=== PATIENT | female | born 1950 | race Caucasian/White ===

== ENCOUNTER → 2016-04-01 12:21 | Outpatient (CLI) | payer MEDICARE, OTHER ==
[2014-12-31 08:49] VITALS: BMI 23.0
[~2016-04-01 12:21] MED LIST: ACETAMINOPHEN325 MG PO; ALIGN4 MG PO; COLACE100 MG PO; DULCOLAX10 MG/SUPP RC; HYDROCODON-ACE1 EAC7 PO; NEPHRO-VITE RX1 TAB PO; OCUVITE TABLET1 TA1 PO; PROTONIX40 MG PO; RENVELA800 MG PO; RESTORIL15 MG PO; ROCALTROL0.25 MCG PO; SLOW RELEASE I160 MG PO; SYNTHROID50 MCG PO; ULORIC80 MG PO; VIBRAMYCIN50 MG PO; ZESTRIL10 MG PO
== END | disposition home or self-care (01) ==
LOC: D.LABREF 12:21
DX: L02.818 Cutaneous abscess of other sites (principal)

== ENCOUNTER 2016-04-19 13:54 | Inpatient (IN) | payer MEDICARE, OTHER ==
[~2016-04-19] VITALS: Ht 165.1 cm; Wt 61.4 kg
[~2016-04-19 13:54] MED LIST changes: -HYDROCODON-ACE1 EAC7 PO; -SLOW RELEASE I160 MG PO; -ULORIC80 MG PO; -VIBRAMYCIN50 MG PO
[2016-04-19] MEDS ORDERED: SLOW RELEASE I160 MG PO (14:24)
[2016-04-19 14:25] VITALS: BP 171/100; BMI 22.9
[2016-04-19] MEDS ORDERED: ULORIC80 MG PO (14:25)
--- NOTE | 2016-04-19 14:40 | NUR ---
1410-RECEIVED VIA WHEELCHAIR TO ROOM WITH DX. CLOTTED AVF TO LEFT ARM. MADE NPO ORDERED. LEFT AVF WITH WEAK BRUIT, NO THRILL FELT, VERY RED AND TENDER. WILL ADMIT.
[2016-04-19 15:23] LABS: BASOPHILS 0.8 % (0.0-2.0); EOSINOPHILS 2.5 % (0-7); HEMATOCRIT 30.9 % (36.0-48.0); HEMOGLOBIN 9.7 g/dL (12-16); LYMPHOCYTES 21.3 % (15-50); MCH 29.4 pg (26.0-34.0); MCHC 31.4 g/dL (31.0-37.0); MCV 93.6 fL (80.0-100.0); MEAN PLATELET VOLUME 8.8 fL (7.4-10.4); NEUTROPHILS 64.4 % (40-80); PLATELET COUNT 181 10x3/uL (130-400); RDW 15.8 % (11.5-14.5); WBC 5.9 10x3/uL (4.8-10.8)
[2016-04-19 15:39] LABS: ANION GAP 16.2 mmol/L (8-16); CALCIUM 8.6 mg/dL (8.5-10.1); CARBON DIOXIDE 26.9 mmol/L (21.0-32.0); CREATININE - SERUM 4.4 mg/dL (0.6-1.3); POTASSIUM - SERUM 4.1 mmol/L (3.5-5.1)
[2016-04-19 15:43] LABS: INR 1.13 (0.85-1.17); PROTIME 14.4 SECONDS (11.6-15.0)
--- NOTE | 2016-04-19 19:20 | NUR ---
ASSESSMENT COMPELTE, A&O, IV TO RIGHT FOREARM SL, SITE CLEAN AND DRY. PT DENIES PAIN OR NEEDS AT THIS TIME, BED LOW, CL IN REACH.
[2016-04-19 20:00] VITALS: BP 178/99
--- NOTE | 2016-04-19 21:27 | NUR ---
HS MEDS GIVEN WITH FRESHI ICE WATER, SNACK ALSO PROVIDED.
[2016-04-20] VITALS: BP 123/83
--- NOTE | 2016-04-20 00:39 | NUR ---
AUTOMOTIVE SALES PROFESSIONAL AT BEDSIDE FOR VS, NEEDS ADDRESSED. CALL LIGHT IN REACH. WILL CONT TO MONITOR.
--- NOTE | 2016-04-20 03:25 | NUR ---
RESTING WITH EYES CLOSED, RESPERATIONS EVEN, NO S/S DISTRESS NOTED.
[2016-04-20 04:00] VITALS: BP 125/70
[2016-04-20 05:55] LABS: EOSINOPHILS 3.8 % (0-7); HEMATOCRIT 30.6 % (36.0-48.0); HEMOGLOBIN 9.6 g/dL (12-16); IMMATURE GRANULOCYTES 0.4 % (0-5); LYMPHOCYTES 13.2 % (15-50); MCH 29.4 pg (26.0-34.0); MCHC 31.4 g/dL (31.0-37.0); MCV 93.9 fL (80.0-100.0); MEAN PLATELET VOLUME 9.3 fL (7.4-10.4); MONOCYTES 16.1 % (2-11); NEUTROPHILS 65.5 % (40-80); PLATELET COUNT 198 10x3/uL (130-400); RBC 3.26 10x6/uL (4.00-5.40); RDW 15.8 % (11.5-14.5); WBC 5.2 10x3/uL (4.8-10.8)
[2016-04-20 06:33] LABS: INR 1.13 (0.85-1.17); PROTIME 14.4 SECONDS (11.6-15.0)
[2016-04-20 06:47] LABS: ANION GAP 15.3 mmol/L (8-16); CALCIUM 8.4 mg/dL (8.5-10.1); CARBON DIOXIDE 24.5 mmol/L (21.0-32.0); CREATININE - SERUM 4.8 mg/dL (0.6-1.3); PHOSPHOROUS 4.3 mg/dL (2.5-4.9); POTASSIUM - SERUM 3.8 mmol/L (3.5-5.1)
--- NOTE | 2016-04-20 08:01 | NUR ---
0715-EKG PERFORMMED ORDERED. OP PERMITS SIGNED AND WITNESSED. NPO. RES. LEFT ARM WITH AVF, RIGHT FA SEEN WITH NS INFUSING AT 10 CC/HR. ON ROOM AIR. WILL CONTINUE TO MONITOR.
--- NOTE | 2016-04-20 08:09 | NUR ---
CALLED AND TALKED TO GALO IN SURGERY AND IT SHOWS FOR SURGERY AT 0900 THIS AM. THIS IS RELAYED TO THE PATIENT.
[2016-04-20 08:27] VITALS: BP 121/75
--- NOTE | 2016-04-20 08:45 | NUR ---
TO OR VIA BED.
--- NOTE | 2016-04-20 13:37 | NUR ---
RETURNS FROM RECOVERY ROOM WITH LEFT ARM IN SLING. DRESSING TO LEFT ARM IS DRY AND INTACT. LEFT GROIN HEMISPLIT SEEN WITH DRY INTACT DRESSING, DATED FOR TODAY. WILL MONITOR.
[2016-04-20 13:39] VITALS: BP 157/91
[2016-04-20 14:15] VITALS: Ht 165.1 cm; Wt 61.4 kg
[2016-04-20 16:38] VITALS: BP 154/91
--- NOTE | 2016-04-20 18:23 | NUR ---
DOING WELL POST SURGERY AND DIALYSIS. LEFT ARM STILL IN SLING, DENIES NEEDS AT PRESENT TIME.
--- NOTE | 2016-04-20 19:37 | NUR ---
ASSESSMENT COMPELTE, A&O, RESPERATIONS EVEN ON ROOM AIR. IV TO RIGHT FOREARM WITH HEPARIN DRIP INFUSING AT 10 CC/HR, SITE CLEAN AND DRY. LEFT ARM IN SLING AFTER LEFT AVF REVISION DONE EARLIER TODAY. LEFT GROIN HEMOSPLIT NOTED WITH DRSG C/D/I. PT DENIES NEEDS AT THIS TIME, BED LOW, CL IN REACH.
[2016-04-20 21:06] VITALS: BP 113/59
--- NOTE | 2016-04-20 21:07 | NUR ---
HS MEDS GIVEN WITH FRESH ICE WATER, NORCO 1 TAB GIVEN FOR C/O PAIN TO LEFT ARM INCISION. NO OTHER NEEDS AT THIS TIME, BED LOW, CL IN REACH.
--- NOTE | 2016-04-20 23:30 | NUR ---
DRIVER COURIER AT BEDSIDE FOR VS. NEEDS ADDRESSED AT THIS TIME. CALL LIGHT IN REACH. REX CONT TO MONITOR.
[2016-04-21 01:50] VITALS: BP 104/61
[2016-04-21 05:40] VITALS: BP 100/58
[2016-04-21 05:56] LABS: BASOPHILS 0.8 % (0.0-2.0); EOSINOPHILS 2.7 % (0-7); HEMATOCRIT 32.6 % (36.0-48.0); HEMOGLOBIN 10.3 g/dL (12-16); IMMATURE GRANULOCYTES 0.2 % (0-5); LYMPHOCYTES 13.1 % (15-50); MCH 29.8 pg (26.0-34.0); MCHC 31.6 g/dL (31.0-37.0); MCV 94.2 fL (80.0-100.0); MEAN PLATELET VOLUME 8.8 fL (7.4-10.4); NEUTROPHILS 69.2 % (40-80); PLATELET COUNT 163 10x3/uL (130-400); RBC 3.46 10x6/uL (4.00-5.40); WBC 6.3 10x3/uL (4.8-10.8)
[2016-04-21 06:36] LABS: ANION GAP 14.1 mmol/L (8-16); CALCIUM 8.3 mg/dL (8.5-10.1); CARBON DIOXIDE 27.7 mmol/L (21.0-32.0); CREATININE - SERUM 4.1 mg/dL (0.6-1.3); PHOSPHOROUS 5.3 mg/dL (2.5-4.9); POTASSIUM - SERUM 3.8 mmol/L (3.5-5.1); VANCOMYCIN - RANDOM 15.5 ug/mL (10.0-20.0)
[2016-04-21 08:03] VITALS: BP 94/53
--- NOTE | 2016-04-21 08:07 | NUR ---
ASSESSEMENT DONE. PT A/O. NURSE ASSISTED PT BACK TO BED FROM BSC. PT DENIES NEEDS AT THIS TIME. NO DISTRESS NOTED. CALL LIGHT WITH IN REACH. WILL CONT. TO MONITOR.
--- NOTE | 2016-04-21 09:34 | NUR ---
IV PATENT. CALL LIGHT IN REACH. WILL CONT. PLAN OF CARE.
--- NOTE | 2016-04-21 10:06 | NUR ---
PT TO DIALYSIS VIA WC
[2016-04-21 10:23] LABS: INR 1.3 (0.85-1.17)
--- NOTE | 2016-04-21 14:08 | NUR ---
PT BACK FROM DIALYSIS. C/O PAIN TO LEFT GROIN AT [facility] SITE. NORCO GIVEN. CALLED DR. WIGGINS IN SURGERY PER HIS REQUSEST AND NOTIFED SURGERY NURSE PT WAS BACK IN ROOM. DR. WIGGINS IS IN OR ON A CASE.
[2016-04-21 16:00] VITALS: BP 107/64
--- NOTE | 2016-04-21 16:27 | NUR ---
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 Yes 0 * How many steps to enter\exit or inside your home? RAMP 0 * PCP DR. LION 0 * Pharmacy [facility] [address] OR [facility], MAIL ORDER 0 * Preadmission Environment Home with Family 0 * ADLs Independent 0 * Equipment Cane Other Walker 0 * Other Equipment INDEPENDENCE - MEDICAL EQUIPMENT PROVIDER NEXT STAGE - HOME HEMODIALYSIS SUPPLIES 0 * List name and contact numbers for known caregivers / representatives who currently or will assist patient after discharge: KAYLIN CAMPBELL, FRIEND, 0 * Community resources currently utilized Other 0 * Please name any agencies selected above. HOME HEMODIALYSIS, 3 DAYS PER WEEK * Additional services required to return to the preadmission environment? No 0 * Can the patient safely return to the preadmission environment? Yes 0 * Has this patient been hospitalized within the prior 30 days at any hospital? No 0 CM MET WITH PT IN ROOM TO DISCUSS DISCHARGE PLANNING AND NEEDS. PT REPORTS LIVING AT HOME INDEPENDENTLY WITH HER FRIEND WHO SHE CONSIDERS HER SISTER. PT HAS CANE, WALKER AND HOME DIALYSIS EQUIPMENT AND PT DOES HER OWN HEMODIALYSIS THREE DAYS PER WEEK AT HOME. PT HAS NO OUTSIDE SERVICES ASSISTING IN THE HOME. CM DISCUSSED AVAILABILITY OF HOME HEALTH, REHAB SERVICES AND MEDICAL EQUIPMENT. PT REPORTS UNKNOWN DISCHARGE NEEDS, REPORTS PLAN TO RETURN HOME, PT WILL CALL A FRIEND WHO WILL PICK HER UP FOR DISCHARGE HOME. PT REPORTS PLAN TO DISCHARGE HOME WITH FAMILY, HAS UNKNOWN DISCHARGE NEEDS AT THIS TIME. CM TO FOLLOW AND ASSIST NEEDED. Sustain Engineer: Shreyas Felton
--- NOTE | 2016-04-21 16:58 | NUR ---
DR. WIGGINS STILL BEEN BY TO SEE PT. CALLED EXT. [phone] WIGGINS IN WITH A PT. SHE WILL LET HIM KNOW PT IS IN ROOM AND READY TO SEE HIM.
--- NOTE | 2016-04-21 21:11 | NUR ---
HS MEDS GIVEN WITH FRESH ICE WATER. NORCO 1 TAB GIVEN FOR C/O PAIN TO LEFT ARM. NO OTHER NEEDS AT THIS TIME, BED LOW, CL IN REACH.
[2016-04-21 22:07] VITALS: BP 108/59
--- NOTE | 2016-04-21 22:55 | NUR ---
CONSENTS SIGNED FOR LEFT HERO GRAFT AND POSSIBLE INERTION OF HEMOSPLIT CATHETER TO BE DONE ON 04/21/16. HEPARIN DRIP DC'D. SNACK PROVIDED AT PT REQUEST, NO OTHER NEEDS AT THIS TIME.
[2016-04-22 01:57] VITALS: BP 100/55
[2016-04-22 05:26] VITALS: BP 97/56
--- NOTE | 2016-04-22 06:27 | NUR ---
NO CHANGES FROM PREVIOUS ASSESSMENT, CALL LIGHT IN REACH. WILL CONTINUE TO WITH PLAN OF CARE.
--- NOTE | 2016-04-22 06:58 | NUR ---
PREOP MEDS GIVEN WITH SMALL SIP OF ORDERED.
--- NOTE | 2016-04-22 07:30 | NUR ---
RECEIVED PT REPORT. NO OTHER NEEDS AT THIS TIME. WILL CONTINUE PLAN OF CARE.
[2016-04-22 08:37] LABS: BASOPHILS 0.5 % (0.0-2.0); EOSINOPHILS 4.4 % (0-7); HEMATOCRIT 31.7 % (36.0-48.0); IMMATURE GRANULOCYTES 0.2 % (0-5); LYMPHOCYTES 11.5 % (15-50); MCH 29.9 pg (26.0-34.0); MCHC 31.5 g/dL (31.0-37.0); MCV 94.9 fL (80.0-100.0); MEAN PLATELET VOLUME 8.7 fL (7.4-10.4); MONOCYTES 16.7 % (2-11); NEUTROPHILS 66.7 % (40-80); RBC 3.34 10x6/uL (4.00-5.40); RDW 15.8 % (11.5-14.5); WBC 5.9 10x3/uL (4.8-10.8)
[2016-04-22 08:44] LABS: PLATELET COUNT 126 10x3/uL (130-400)
[2016-04-22 08:47] LABS: APTT 40.5 SECONDS (22.8-39.4); INR 1.1 (0.85-1.17); PROTIME 14.1 SECONDS (11.6-15.0)
[2016-04-22 08:50] LABS: ANION GAP 13.6 mmol/L (8-16); CALCIUM 8.8 mg/dL (8.5-10.1); CARBON DIOXIDE 27.9 mmol/L (21.0-32.0); CREATININE - SERUM 3.5 mg/dL (0.6-1.3); PHOSPHOROUS 4.8 mg/dL (2.5-4.9); POTASSIUM - SERUM 3.5 mmol/L (3.5-5.1)
[2016-04-22 11:20] VITALS: BP 114/56
[2016-04-22 11:34] VITALS: BP 103/52
--- NOTE | 2016-04-22 11:53 | NUR ---
PT IS ALERT. ASSESSMENT DONE PER FLOWSHEET. NO OTHER NEEDS AT THIS TIME. WILL CONTINUE TO MONITOR.
--- NOTE | 2016-04-22 15:36 | NUR ---
PT IS ALERT. NO SS OF DISTRES AT THIS TIME. WILL CONTINUE TO MONITOR.
[2016-04-22 16:17] VITALS: BP 113/65
--- NOTE | 2016-04-22 19:15 | NUR ---
RESUME CARE OF PT, RESERVED L.ARM, IV-RFA-SL, BED IS LOW, SRX2, PT DENIES ANY NEEDS, CALL LIGHT IN REACH, WILL CONTINUE TO MONITOR
[2016-04-22 20:00] VITALS: BP 100/59
[2016-04-23] VITALS: BP 129/69
--- NOTE | 2016-04-23 03:30 | NUR ---
ASSESSMENT COMPLETE, PT SLEEPING, CALL LIGHT IN REACH, BED IS LOW, SRX2, WILL CONTINUE TO MONITOR
--- NOTE | 2016-04-23 03:36 | NUR ---
CAPSULE FILLER AT BEDSIDE TO OBTAIN VITALS, CALL LIGHT IN REACH. WILL CONTINUE WITH PLAN OF CARE.
[2016-04-23 04:00] VITALS: BP 107/52
[2016-04-23 06:02] LABS: BASOPHILS 0.6 % (0.0-2.0); EOSINOPHILS 5.9 % (0-7); HEMATOCRIT 30.6 % (36.0-48.0); HEMOGLOBIN 9.4 g/dL (12-16); IMMATURE GRANULOCYTES 0.2 % (0-5); LYMPHOCYTES 14.2 % (15-50); MCH 28.9 pg (26.0-34.0); MCHC 30.7 g/dL (31.0-37.0); MCV 94.2 fL (80.0-100.0); MEAN PLATELET VOLUME 8.7 fL (7.4-10.4); MONOCYTES 12.5 % (2-11); NEUTROPHILS 66.6 % (40-80); PLATELET COUNT 123 10x3/uL (130-400); RBC 3.25 10x6/uL (4.00-5.40); RDW 15.5 % (11.5-14.5); WBC 5.4 10x3/uL (4.8-10.8)
[2016-04-23 06:59] LABS: ANION GAP 15.5 mmol/L (8-16); CALCIUM 8.4 mg/dL (8.5-10.1); CARBON DIOXIDE 26.4 mmol/L (21.0-32.0); PHOSPHOROUS 5.8 mg/dL (2.5-4.9); POTASSIUM - SERUM 3.9 mmol/L (3.5-5.1)
[2016-04-23 07:05] LABS: CREATININE - SERUM 4.8 mg/dL (0.6-1.3)
[2016-04-23 09:52] VITALS: BP 103/70
--- NOTE | 2016-04-23 10:57 | NUR ---
PATIENT PATHWAYS: [facility]. Med records uploaded and forwarded to the unit. No answer in patient's room. Pt to have HD today then likely discharge per progress notes. BMM Dialysis Coordinator.
[2016-04-23 16:38] VITALS: BP 116/65
--- NOTE | 2016-04-23 20:00 | NUR ---
RESTING IN BED. ALERT/ORIENTED. RESERVE LEFT ARM. HAD SURGERY DONE ON LEFT UPPPER ARM HERO TODAY. HAS SALINE LOCK TO RFA AND LEFT GROIN TRIALYSIS SALINE LOCKED. RECIEVED HEMODIALYSIS TODAY VIA GROIN TRIALYSIS. ENCOURAGED TO KEEP LEFT ARM ELEVATED ON PILLOW TONIGHT. PT ASKED FOR IV PAIN MED AT BEDTIME SO THAT SHE WILL BE COMFORTABLE TO SLEEP. CALL LIGHT IN REACH. CPOC.
[2016-04-23 21:44] VITALS: BP 156/91
--- NOTE | 2016-04-23 22:00 | NUR ---
HS MEDS GIVEN, REQUESTED PAIN MED OF IV BUPRENEX GIVEN FOR PAIN IN LEFT ARM AND RESTORIL GIVEN TO PROMOTE SLEEP. LEFT ARM ELEVATED ON PILLOW. CPOC.
[2016-04-24 00:35] VITALS: BP 123/63
[2016-04-24 04:36] VITALS: BP 153/65
--- NOTE | 2016-04-24 04:47 | NUR ---
RESTING IN BED WITH NONLABORED RESPIRATIONS. NO DISTRESS. CPOC.
--- NOTE | 2016-04-24 07:40 | NUR ---
AM ROUNDING- PT LAYING IN BED ON RIGHT SIDE WITH EYES CLOSED RESTING. AVF/HERO SEEN TO LEFT ARM (RESERVE LEFT ARM) WITH CLEAN, DRY, AND INTACT DRESSING. PT DIALYSES ON M, W, F. TRIALYSIS CATHETER SEEN TO LEFT GROIN AREA WITH CLEAN, DRY, AND INTACT DRESSING SEEN. ON ROOM AIR. NO MONITOR. IV SEEN TO RIGHT FOREARM THAT IS CURRENTLY SALINE LOCKED. PTS LEFT ARM IS RESTING ON PILLOW, PER REPORT PT HAD PROCEDURE ON AVF/HERO A FEW DAYS AGO SO PTS ARM IS STILL VERY SORE. NO NEED AT CURRENT TIME. WILL CONTINUE TO MONITOR AND CONTINUE WITH PLAN OF CARE.
[2016-04-24 07:53] LABS: BASOPHILS 0.4 % (0.0-2.0); EOSINOPHILS 3.8 % (0-7); HEMATOCRIT 30.4 % (36.0-48.0); HEMOGLOBIN 9.4 g/dL (12-16); IMMATURE GRANULOCYTES 0.1 % (0-5); LYMPHOCYTES 10.2 % (15-50); MCHC 30.9 g/dL (31.0-37.0); MCV 93.8 fL (80.0-100.0); MEAN PLATELET VOLUME 8.5 fL (7.4-10.4); MONOCYTES 19.4 % (2-11); NEUTROPHILS 66.1 % (40-80); PLATELET COUNT 109 10x3/uL (130-400); RBC 3.24 10x6/uL (4.00-5.40); RDW 15.4 % (11.5-14.5)
[2016-04-24 07:56] LABS: WBC 6.9 10x3/uL (4.8-10.8)
[2016-04-24 08:00] VITALS: BP 119/66
[2016-04-24 08:19] LABS: ANION GAP 14.3 mmol/L (8-16); CALCIUM 8.9 mg/dL (8.5-10.1); CARBON DIOXIDE 29.7 mmol/L (21.0-32.0); CREATININE - SERUM 4.1 mg/dL (0.6-1.3); PHOSPHOROUS 5.6 mg/dL (2.5-4.9)
[2016-04-24 12:00] VITALS: BP 90/51
[2016-04-24 16:00] VITALS: BP 101/55
--- NOTE | 2016-04-24 16:55 | NUR ---
PT LAYING IN BED ON BACK WITH EYES OPEN RESTING WATCHING TV. DENIES ANY NEED AT CURRENT TIME. LEFT ARM IS ELEVATED ON PILLOW FOR COMFORT. WILL CONTINUE TO MONITOR.
[2016-04-24 20:30] VITALS: BP 138/69
--- NOTE | 2016-04-24 23:48 | NUR ---
INITIAL ROUNDS COMPLETED AT 1920 HRS. PT DENIED ANY DISCOMFORT. ASSESSMETN COMPLETED AT 2020 HRS. VSS. IV TO RFA SL. L GROIN TRIALYSIS CATH NOTED WITH NURSE PORT. L GROIN CLEAN, DRY AND INTACT WITHOUT ANY SWELLING OR BLEEDING. PALPABLE PEDAL PULSES. BILAT FEET WARM TO TOUCH. L ARM HERO GRAT WITH BRUIT AND THRILL. L ARM SWOLLEN AND ELEVATED ON PILLOWS. STRONG RADIAL PULSE. DRESSING CLEAN, DRY AND INTACT. LUNGS CTA. PM MEDS GIVEN INCLUDING RESTORIL AND NORCO. PT CURRENTLY RESTING WITH EYES CLOSED. RESP EVEN AND REGULAR. SR UP X2, CALL LIGHT WITHIN REACH.
[2016-04-25 00:30] VITALS: BP 104/50
--- NOTE | 2016-04-25 03:06 | NUR ---
PT RESTING WITH EYES CLOSED. RESP EVEN AND REGULAR. SR UP X2,CALL LIGHT WITHIN REACH.
[2016-04-25 04:30] VITALS: BP 101/55
--- NOTE | 2016-04-25 05:20 | NUR ---
VSS THROUGHOUT NGIHT. PT STATED NORCO CONTROLLED PAIN. NEEDS MET; WILL CONTINUE TO MONITOR.
--- NOTE | 2016-04-25 07:17 | NUR ---
AM ROUNDING- PT LAYING IN BED ON BACK WITH EYES OPEN RESTING. ON ROOM AIR. NO MONITOR. IV SEEN TO RIGHT FOREARM THAT IS CURRENTLY SALINE LOCKED. TRIALYSIS CATHETER SEEN TO LEFT GROIN AREA (PT USES AT TIMES FOR DIALYSIS). RESERVE LEFT ARM FOR HERO GRAFT. CLEAN, DRY, AND INTACT DRESSING SEEN OVER HERO GRAFT. PER REPORT PT DIALYZES ON M, W, AND F. RED SPOTS SEEN ON FACE, PT STATES SHE HAS HX OF SCLERODERMA. NO NEED AT CURRENT TIME. WILL CONTINUE TO MONITOR AND CONTINUE WITH PLAN OF CARE.
[2016-04-25 08:00] VITALS: BP 105/56
[2016-04-25] MEDS ORDERED: HYDROCODON-ACE1 EAC7 PO (09:46)
--- NOTE | 2016-04-25 11:31 | NUR ---
D/C INSTRUCTIONS EXPLAINED TO PT AND SIGNED, PLACED IN CHART. IV TO RIGHT FOREARM REMOVED WITH CATH TIP INTACT. COVERED SITE WITH 2X2 GAUZE AND SECURED WITH TAPE. TOLERATED WELL. PT HAS TRIALYSIS CATHETER TO LEFT GROIN IN PLACE. PT STATES [facility] STATED THEY WOULD TAKE IT OUT BEFORE SHE LEFT TODAY. PAGED TREU RICHMOND TO SEE WHAT SHE WANTED TO ABOUT TRIALYSIS CATHETER. AWAITING CALLBACK.
--- NOTE | 2016-04-25 11:43 | NUR ---
[facility] ON UNIT. E[facility]NE[facility] STATES TO GO AHEAD AND REMOVE PTS TRIALYSIS CATHETER AND LEAVE PTS STITCH TO LEFT HERO GRAFT IN AND THEY WILL ADDRESS IT IN FOLLOW UP APPT. WILL DO ORDERED AND CONTINUE TO MONITOR.
--- NOTE | 2016-04-25 14:13 | NUR ---
CHECKED ON PTS AREA WHERE HEMOSPLIT WAS REMOVED. OPSITE IS CLEAN, DRY, AND INTACT. NO BLEEDING SEEN. PT LAYING FLAT INSTRUCTED. WILL CONTINUE TO MONITOR.
--- NOTE | 2016-04-25 14:16 | NUR ---
CHAPO BASS WENT TO ASSESS PTS OPSITE WHICH IS CLEAN, DRY, AND INTACT WITH NO BLEEDING SEEN. CHAPO BASS RAISED HOB TO 30 DEGREES. WILL CONTINUE TO MONITOR.
--- NOTE | 2016-04-25 15:10 | NUR ---
PT D/C VIA WHEELCHAIR. OPSITE WHERE HEMOSPLIT WAS REMOVED IS CLEAN, DRY, AND INTACT. NO BLEEDING SEEN. PTS BELONGINS WERE TAKEN DOWN BY PTS SISTER.
--- NOTE | 2016-04-27 09:57 | OP ---
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 OPERATION PERFORMED: Left upper extremity AV fistulogram, AngioJet mechanical thrombolysis, balloon angioplasty of peripheral venous access stenosis and also a superior vena cavogram with balloon angioplasty of proximal subclavian venous stenosis near occlusion and then also lastly, ultrasound as well as fluoroscopically guided insertion of a left common femoral Trialysis acute central venous dialysis catheter. SURGEON: Nahed Wiggins MD. ANESTHESIA: Regional block and IV sedation and local. REFERRING PHYSICIAN: Froy Lion, Dr. Kelley and Dr. Lake. PREOPERATIVE NOTE: Nolan Paez is a 66-year-old white female, patient of the renal disease and scleroderma, who has been dialyzing now for some time with a left brachiocephalic AV fistula. This fistula has aneurysmal change beginning at the arterial anastomosis and has been revised once with an open operation to replace a segment with a PTFE graft. She has recently had angiography at [facility], which has demonstrated a central vein stenosis, which was treated by balloon angioplasty and a stenosis in the cephalic vein in the upper third of the humerus level. She presented yesterday with thrombosis and considerable tenderness and inflammatory changes surrounding the AV fistula/graft and was admitted to the hospital and begun on antibiotics and I was consulted. She is brought to the operating room at this time with plans to do a fistulogram and hopefully salvage the access, but also were prepared to insert a dialysis catheter. Under regional block anesthesia as well as IV sedation and in supine position, the patient was prepped and draped in a sterile manner. The groins were prepped as well as the neck and upper chest, so that we could implant dialysis catheters as any of those locations without having to stop the procedure to completely reprepped and draped. I performed an ultrasound examination of the fistula and noted the arterial anastomotic pseudoaneurysm as well as the other aneurysmal change in the fistula in the lower half of the arm. There was a large amount of thrombus and no evidence of flow in the fistula itself. I accessed the fistula near the arterial anastomosis with mini stick technique, which led up to an eventual insertion of a 7-Jordanian introducer, I advanced the guidewire and an AngioJet catheter through the thrombosed fistula, noted that there was a stenosis at about the junction of the middle and lower thirds of the arm, was able to advance the guidewire into the right atrium and the AngioJet well up OPERATIVE REPORT [id number] NOLAN PAEZ into the inferior vena cava. I then performed a mechanical thrombolysis, after which contrast injection demonstrated a severe, almost total occlusion of the left subclavian vein and proximal brachiocephalic vein just at the junction with the internal jugular. There was extensive thrombus in the cephalic vein from the deltopectoral groove down to the arterial anastomosis and there was a stenosis, which I believe is a recurrent stenosis in the upper third of the arm, in the cephalic vein and another within the AV fistula at a bowel level. 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 The patient was systemically heparinized and additional AngioJet mechanical thrombolysis performed, after which, an 8 mm diameter balloon was used to dilate the stricture is within the venous segments of the fistula in the arm and a 14 x 40 mm angioplasty balloon was used to dilate the left brachiocephalic and left subclavian veins. The final result was pentecostalism of flow in the fistula and removal of the majority of the clot burden from within it. I did not attempt to reverse the patient's heparin, but removed the 7-Jordanian introducer and held pressure and placed a [id number] 4-0 Prolene suture and subsequently this site was dressed with Avitene Ultrafoam, Tegaderm, and Cavilon skin prep and a continuous gentle direct pressure, maintained until hemostasis was assured. I examined the arm with ultrasound and still see some thrombus remaining in the vein, although there does seem to be good flow. I still did not trust newly resurrected fistula to function through dialysis today and so I opted to go ahead and placed a temporary dialysis catheter, this time in the left common femoral vein, this was done with ultrasound guidance and mini stick technique and eventually a 24 cm long Trialysis catheter was inserted and its tip positioned to the inferior vena cava. All 3 lumens were accessed and aspirated, free return of blood confirmed. They were then flushed with saline and then heparin locked with 100 units per cc heparin. It was sutured in place with 2-0 silk. Sterile dressing applied along with an antibacterial barrier. The patient was at that point been awakened and taken to the recovery room. Blood loss during the operation was really insignificant and unreplaced and all sponges, instruments, and needles were accounted for. No drain was used and no surgical specimen was submitted for histopathology. PLAN: I will to keep the patient on continuous heparin anticoagulation for the rest of today this evening and reconsider tomorrow whether to continue her on anticoagulation regime even at home on an outpatient basis. In the slightly longer term, I believe that she should be converted to a HeRO graft. I do not think placement of the stent in the subclavian stenosis will necessarily keep things open ____ this can result in a partial jailing of the anterior jugular vein and prevent subsequent conversion to a HeRO. TRANSINT:[id number] Voice Confirmation ID: [id number] DOCUMENT ID: [id number] NAHED WIGGINS MD at 0957 CC: FROY LION MD [id number] DICTATION DATE: 04/20/16 1234 MOTOR INSPECTION MECHANIC: 04/20/16 1541 DIS IN 04/25/[address] [facility] [address] [place] [address]
--- NOTE | 2016-04-27 09:57 | OP ---
PATIENT NAME: NOLAN PAEZ MEDICAL RECORD: [id number] :52 LOCATION:D. D.2132 ADMISSION DATE:04/19/16 SURGEON: NAHED WIGGINS MD DATE OF OPERATION: 04/22/2016 PATIENT TYPE: Inpatient. REFERRED BY: Froy Lion MD PREOPERATIVE DIAGNOSES: End-stage renal disease and depends upon hemodialysis, with other mechanical complication of left upper extremity arteriovenous graft and central vein stenosis with stenosis of the left subclavian and left brachiocephalic vein and left internal jugular vein. OPERATION PERFORMED: Ultrasound-guided access of the left internal jugular vein followed by performance of a superior vena cavogram and balloon angioplasty of the brachiocephalic and internal jugular veins, then insertion of a HeRO outflow device, positioning the tip of that catheter in the right atrium with additional contrast studies to confirm proper positioning. The PTFE graft portion of the HeRO sewn end-to-end to the cephalic vein in the upper third of the arm in order to preserve established left arm hemodialysis access. SURGEON: Nahed Wiggins MD ANESTHESIA: General endotracheal per GARMENT LOOPER. PREOPERATIVE NOTE: Dr. Lion's patient, Nolan Paez is a very pleasant 66-year-old white female patient with scleroderma and end-stage renal disease, has been dialyzing for some time now with a left upper extremity brachiocephalic AV fistula, which has been converted at least partially segmentally to an AV graft. She has had problems with central vein stenosis and stenosis in the cephalic vein in the upper third of the arm, which recently led to thrombosis of the fistula. Earlier this week, she was taken to the operating room and underwent a successful fistulogram with mechanical AngioJet thrombolysis and balloon angioplasty of the stenosis in the dialysis circuit and the cephalic vein and also central vein stenosis balloon angioplasty. At that time, we planned that the patient would be returned to the operating room in the near future for conversion to a HeRO graft. The patient as well as Dr. Lion would prefer that we go ahead and do that now during this hospitalization. Her fistula/AV graft has remained patent although she was on continuous IV heparin until last evening. Heparin was discontinued about midnight. She has a left femoral Trialysis dialysis catheter, which I placed earlier this week, and which was used for her dialysis yesterday. That catheter can probably be removed tomorrow if she dialyzes successfully with her left arm AV fistula graft and she may be able to be discharged as well tomorrow. DESCRIPTION OF PROCEDURE: Under general endotracheal anesthesia in supine position, the patient was prepped and draped in sterile manner. Using ultrasound guidance, I accessed the left internal jugular vein ____ and was able to insert a micropuncture needle and wire and then that led up to placement of a 7-Irish Introducer. Contrast injection confirmed the presence of a stenosis of the proximal internal jugular and brachiocephalic veins A guidewire was then advanced on through the right heart and then to the inferior vena cava. A guidewire exchange was made and Amplatz stiff wire was in place over which I used a 7-mm angioplasty balloon to dilate the venous stenoses and repeated OPERATIVE REPORT [id number] NOLAN PAEZ contrast injection revealed satisfactory dilatation without complication and a patent superior vena cava and right atrium without any areas of other stenosis. I was then able to insert a serial rigid dilators and lastly, the HeRO outflow device through a peel-away sheath. The tip of the HeRO outflow catheter was positioned in the right atrium under fluoroscopy. Contrast injection confirmed that it was indeed in the right atrium as it appeared to be. It was flushed with heparinized saline and clamped. An incision was made beneath the clavicle in the deltopectoral groove, dilated subcutaneous venous tributaries were divided between clamps and ligated with 3-0 Vicryl and the incision carried down to the investing pectoral fascia. The HeRO outflow device catheter was then pulled through a subcutaneous tunnel into that deltopectoral groove incision and repeat fluoroscopy revealed appropriate position of the tip of the catheter to be maintained. I then took the HeRO PTFE graft segment and shortened it. I made a longitudinal incision over the cephalic vein in the upper third of the arm at a point I believed to be above that of the previously noted and recently dilated stenosis. The vein was exposed and controlled with Silastic loops. The patient was heparinized with 2000 units of heparin. The PTFE graft was pulled through the subcutaneous tunnel from the deltopectoral groove to the upper arm incision. The cephalic vein was clamped distally and a vascular stapling device was then used to occlude the vein proximally. The vein was then transected and trimmed back, there was thrombus within it which was removed and I then performed an end-to-end anastomosis and an Inkwell technique in implanting the 6 mm diameter graft into the cephalic vein with a running 6-0 Prolene and this was then further sealed and reinforced with BioGlue. When adequate time had elapsed for the glue to set, the clamp was opened and forward bleeding allowed to wash away any clots and air bubbles. The PTFE was then clamped. The HeRO outflow device was shortened and then connected to the titanium nipple on the PTFE graft. At that point, all of the occluding clamps were released and flow was established through the new HeRO. Doppler confirmed good flow in the fistula or cephalic vein portion of this complex. The patient's heparin was not reversed. The wounds were irrigated with Ancef and gentamicin solution. They were then infiltrated with 0.25% Marcaine with epinephrine and closed with interrupted inverted 3-0 Vicryl and running intracuticular 4-0 Monocryl and Dermabond glue. They were dressed with Maxorb Ag, Tegaderm and Cavilon skin prep. The patient was awakened and extubated and taken to the recovery room in stable condition. Blood loss during the operation was rather small, certainly less than 100 cc, none was replaced intraoperatively. All sponges, instruments and needles were accounted for. No drain was used and no surgical specimen was submitted for histopathology. TRANSINT:[id number] Voice Confirmation ID: [id number] DOCUMENT ID: [id number] NAHED WIGGINS MD at 0957 CC: FROY LION MD [id number] DICTATION DATE: 04/22/16 1050 FLUID DYNAMICIST: 04/22/16 1306 DIS IN 04/25/16 [facility] [address] [id number]
== END 2016-04-25 15:12 | disposition home or self-care (01) | DRG 252 ==
LOC: D.M2 13:54
PROVIDERS: Internal Medicine; Internal Medicine Nephrology; Surgery; ADMIT Internal Medicine Nephrology
PROC: 03783ZZ Dilation of Left Brachial Artery, Percutaneous Approach (ICD-10-PCS; principal; 2016-04-20 09:00)
PROC: B51C1ZA Fluoroscopy of Left Lower Extremity Veins using Low Osmolar Contrast, Guidance (ICD-10-PCS; principal; 2016-04-20 09:00)
PROC: 05CA3ZZ Extirpation of Matter from Left Brachial Vein, Percutaneous Approach (ICD-10-PCS; principal; 2016-04-20 09:00)
PROC: 06HN33Z Insertion of Infusion Device into Left Femoral Vein, Percutaneous Approach (ICD-10-PCS; principal; 2016-04-20 09:00)
PROC: B51W1ZZ Fluoroscopy of Dialysis Shunt/Fistula using Low Osmolar Contrast (ICD-10-PCS; principal; 2016-04-20 09:00)
PROC: B54CZZA Ultrasonography of Left Lower Extremity Veins, Guidance (ICD-10-PCS; principal; 2016-04-20 09:00)
PROC: 05763ZZ Dilation of Left Subclavian Vein, Percutaneous Approach (ICD-10-PCS; principal; 2016-04-20 09:00)
PROC: 057A3ZZ Dilation of Left Brachial Vein, Percutaneous Approach (ICD-10-PCS; 2016-04-22)
PROC: 05U Upper Veins, Supplement (ICD-10-PCS; 2016-04-22)
PROC: B5181ZZ Fluoroscopy of Superior Vena Cava using Low Osmolar Contrast (ICD-10-PCS; 2016-04-22)
DX: T82.868A Thrombosis due to vascular prosthetic devices, implants and grafts, initial encounter (principal); N18.6 End stage renal disease; I12.0 Hypertensive chronic kidney disease with stage 5 chronic kidney disease or end stage renal disease; Y83.8 Other surgical procedures as the cause of abnormal reaction of the patient, or of later complication, without mention of misadventure at the time of the procedure; Z99.2 Dependence on renal dialysis; E03.9 Hypothyroidism, unspecified; I48.91 Unspecified atrial fibrillation; D63.1 Anemia in chronic kidney disease; M34.9 Systemic sclerosis, unspecified

== ENCOUNTER 2016-05-13 10:02 | Inpatient (IN) | payer MEDICARE, OTHER ==
[~2016-05-13] VITALS: Ht 165.1 cm; Wt 64.1 kg
--- NOTE | ~2016-05-13 | OP ---
PATIENT NAME: NOLAN PAEZ MEDICAL RECORD: [id number] :51 LOCATION:D.M2 D.2104 ADMISSION DATE:05/13/16 SURGEON: NAHED WIGGINS MD DATE OF OPERATION: 05/25/2016 REFERRED BY: Froy Lion MD. PREOPERATIVE DIAGNOSIS: Mechanical dysfunction of the right femoral HemoSplit tunneled dialysis catheter. POSTOPERATIVE DIAGNOSIS: Mechanical dysfunction of the right femoral HemoSplit tunneled dialysis catheter. OPERATION PERFORMED: Injection of contrast and manipulation and positional change of existing femoral tunnel dialysis catheter. SURGEON: Nahed Wiggins MD. ANESTHESIA: MAC per BATTERY CHARGER CONVEYOR LINE. PREOPERATIVE NOTE: Ms. Paez is a daniel 66-year-old white female patient with end-stage renal disease, on chronic hemodialysis. I recently had to excise an infected AV fistula in her left arm. She now has a HeRO graft on the left with a healing Acuseal PTFE graft, which has not yet been utilized. She continues to receive antibiotic therapy and is now dependent at least for short term for hemodialysis access on a right common femoral HemoSplit dialysis catheter, which I inserted at the time of her recent surgery. Attempts to dialyze her with this catheter had been difficult and yesterday, impossible. Despite the use of TPA and positional changes, the catheter would not function. She was brought to the operating room at this time with plans to remove and replace her catheter. DESCRIPTION OF PROCEDURE: With the patient under sedation in supine position, she was prepped and draped in a sterile manner. The suture was removed from the catheter that which had held it to the skin near the entry site. The catheter was accessed and aspirated and I was able to obtain blood fairly easily from both lumens and then the catheter was flushed vigorously with saline. I then injected contrast under fluoroscopy and demonstrated that the arterial limb of the catheter was at the level of the left renal vein and there was no obstruction and the venous limb of the catheter was just above the level of the renal veins and there was no obstruction of flow there. There was no sign of fibrin sheath or other thrombosis or obstruction. I was able to "jiggle" the catheter up and down under fluoroscopy easily, I rotated it 180 degrees so that the arterial limb was more in the middle of the inferior vena cava rather than up against the left lateral wall. Both lumens still functioned easily. They were then flushed with saline and then heparin locked with heparin 100 units per cc, clamped and capped. The catheter was sutured in place again with 2-0 silk. Sterile dressing applied including a chlorhexidine Biopatch as well as Maxorb Ag. The skin at the entry site also was sealed with Dermabond glue. TRANSINT:[id number] Voice Confirmation ID: [id number] DOCUMENT ID: [id number] OPERATIVE REPORT [id number] NOLAN PAEZ JAMES MD CC: FROY LION MD [id number] DICTATION DATE: 05/25/16 1138 [facility] CODERS: 05/25/16 1836 DIS IN 05/25/16 [facility] [address] [place] [address]
[~2016-05-13 10:02] MED LIST changes: +HYDROCODON-ACE1 EAC7 PO; +SLOW RELEASE I160 MG PO; +ULORIC80 MG PO
--- NOTE | 2016-05-13 10:31 | NUR ---
PATIENT PATHWAYS: [facility] Dept. Home unit updated and records forwarded. BMM Dialysis Coordinator.
[2016-05-13 10:50] VITALS: BP 158/87; BMI 22.6
[2016-05-13 10:57] LABS: BASOPHILS 0.8 % (0.0-2.0); EOSINOPHILS 4.4 % (0-7); HEMOGLOBIN 10.2 g/dL (12-16); IMMATURE GRANULOCYTES 0.2 % (0-5); LYMPHOCYTES 14.4 % (15-50); MCH 28.4 pg (26.0-34.0); MCHC 30.9 g/dL (31.0-37.0); MCV 91.9 fL (80.0-100.0); MEAN PLATELET VOLUME 9.8 fL (7.4-10.4); MONOCYTES 16.7 % (2-11); NEUTROPHILS 63.5 % (40-80); RBC 3.59 10x6/uL (4.00-5.40); RDW 17.4 % (11.5-14.5); WBC 5.9 10x3/uL (4.8-10.8)
[2016-05-13 11:01] LABS: PLATELET COUNT 187 10x3/uL (130-400)
[2016-05-13 11:09] LABS: APTT 34.3 SECONDS (22.8-39.4); INR 1.09 (0.85-1.17)
[2016-05-13 13:25] LABS: ANION GAP 20.1 mmol/L (8-16); CREATININE - SERUM 3.9 mg/dL (0.6-1.3); POTASSIUM - SERUM 4.1 mmol/L (3.5-5.1)
--- NOTE | 2016-05-13 14:02 | NUR ---
NOTIFIED DR LOPEZ NURSE (MIRANDA) OF LAB RESULTS
--- NOTE | 2016-05-13 19:48 | NUR ---
RESUMED CARE OF PT, IV-R.WRIST-NS-10, RESERVED L. ARM, DIALYSIS MON, WED, FRI, GOING TO OR- TOMORROW CONSENT SIGNED PER DAY SHIFT, PT TALKING ON PHONE, DENIES ANY NEEDS, BED IS LOW, SRX2, CALL LIGHT IN REACH, WILL CONTINUE TO MONITOR
[2016-05-13 20:00] VITALS: BP 125/76
[2016-05-14] VITALS: BP 123/68
[2016-05-14 04:00] VITALS: BP 152/81
[2016-05-14 05:02] LABS: BASOPHILS 1.3 % (0.0-2.0); EOSINOPHILS 7.6 % (0-7); HEMATOCRIT 29.8 % (36.0-48.0); MCHC 30.2 g/dL (31.0-37.0); MCV 92.8 fL (80.0-100.0); MONOCYTES 18.1 % (2-11); PLATELET COUNT 176 10x3/uL (130-400); RBC 3.21 10x6/uL (4.00-5.40); RDW 17.7 % (11.5-14.5); WBC 4.6 10x3/uL (4.8-10.8)
[2016-05-14 05:15] LABS: ANION GAP 15.1 mmol/L (8-16); CALCIUM 8.1 mg/dL (8.5-10.1); CARBON DIOXIDE 25.4 mmol/L (21.0-32.0); CREATININE - SERUM 4.7 mg/dL (0.6-1.3); POTASSIUM - SERUM 4.5 mmol/L (3.5-5.1)
--- NOTE | 2016-05-14 05:16 | NUR ---
DESK TOP PUBLISHER AT BEDSIDE TO OBTAIN VITALS, CALL LIGHT IN REACH. WILL CONTINUE WITH PLAN OF CARE.
[2016-05-14 08:31] VITALS: BP 153/79
[2016-05-14 10:45] VITALS: Ht 165.1 cm; Wt 64.1 kg
--- NOTE | 2016-05-14 11:22 | NUR ---
PT PREOP FOR OR. UP TO BR VD QS.
--- NOTE | 2016-05-14 12:44 | NUR ---
HX BLOOD CLOTS NO SCD
[2016-05-14 13:48] VITALS: BP 113/72
--- NOTE | 2016-05-14 13:49 | NUR ---
PATIENT BACK FORM OR WITH TRIALYSIS CATH PLACED INCORRECT DRESSING ON. NO SWAB CAPS ON . WILL CHANGE DRESSING. AWAKE AND ORIENTED WARM AND DRY. WILL CONTINUE TO MONITOR.
--- NOTE | 2016-05-14 14:10 | NUR ---
CORRECTDRESSING FOR CVL PLACED USING STERILE TECHNIQUE. MASK PLACED ON PATIENT AND THIS NURSE ALSO MASKED. WATER GIVEN TO PT. WILL CONTINUE TO MONITOR.
[2016-05-14 18:07] VITALS: BP 127/86
[2016-05-14 19:00] VITALS: BP 123/77
--- NOTE | 2016-05-14 19:43 | NUR ---
RECEIVED REPORT FROM DAY NURSE, PT RECEIVING DIALYSIS, DENIES ANY NEEDS, CALL LIGHT IN REACH WILL CONTINUE TO MONITOR
[2016-05-15] VITALS: BP 143/93
--- NOTE | 2016-05-15 01:22 | NUR ---
PT SLEEPING, BED IS LOW, SRX2, CALL LIGHT IN REACH
[2016-05-15 05:07] VITALS: BP 134/78
--- NOTE | 2016-05-15 07:41 | NUR ---
PT IN BED RESTING, WAKES EASILY. LEFT ARM AVF CAN FEELTHE BRUITT, BUT CANT HEAR THE TRILL. RIGHT TRIALYSIS C/D/I. RIGHT WRIST HAS SALINE LOCK. NO C/O PAIN AT THIS TIME. PT CURIOUS ABOUT WHAT THEY ARE GOING TO DO WITH HER TODAY. SR UP X 2. C/L IN REACH. WILL MONITOR.
[2016-05-15 08:08] VITALS: BP 118/70
--- NOTE | 2016-05-15 10:21 | NUR ---
RESTS IN BED WITH CALL LIGHT IN REACH. WILL CONT. PLAN OF CARE.
[2016-05-15 11:57] VITALS: BP 151/76
--- NOTE | 2016-05-15 14:00 | NUR ---
UNHOOKED IV, ALL ANTIBOTICS ARE DONE FOR NOW. PT WANTS TO TAKE NAP. TURNED OFF LIGHT AND SHUT DOOR. WILL MONITOR.
[2016-05-15 16:07] VITALS: BP 116/73
[2016-05-15 21:16] VITALS: BP 130/75
[2016-05-16 00:30] VITALS: BP 143/82
--- NOTE | 2016-05-16 02:03 | NUR ---
ARROUSES EASILY, VOICES NO C/O PAIN OR DISCOMFORT AT THIS TIME. HAS HAD HER HIBICLENS BATH, AND HAS HOT PACK TO LEFT ARM FISTULA. BRAVO WELL. HOB UP SR UP X2, C/L IN REACH. CONTINUE TO MONITOR.
--- NOTE | 2016-05-16 02:24 | NUR ---
EYES CLOSED, RESP EVEN AND UNLAB WITH NO S/S OF ACUTE DISTRESS NOTED AT THIS TIME. C/L IN REACH.
[2016-05-16 04:30] VITALS: BP 117/68
[2016-05-16 05:07] LABS: BASOPHILS 0.8 % (0.0-2.0); EOSINOPHILS 5.8 % (0-7); HEMATOCRIT 31.3 % (36.0-48.0); HEMOGLOBIN 9.5 g/dL (12-16); IMMATURE GRANULOCYTES 0.2 % (0-5); LYMPHOCYTES 17.7 % (15-50); MCH 28.1 pg (26.0-34.0); MCHC 30.4 g/dL (31.0-37.0); MCV 92.6 fL (80.0-100.0); MEAN PLATELET VOLUME 8.9 fL (7.4-10.4); MONOCYTES 13.7 % (2-11); NEUTROPHILS 61.8 % (40-80); PLATELET COUNT 170 10x3/uL (130-400); RBC 3.38 10x6/uL (4.00-5.40); RDW 17.4 % (11.5-14.5)
[2016-05-16 05:25] LABS: ANION GAP 14.2 mmol/L (8-16); CALCIUM 8.3 mg/dL (8.5-10.1); CARBON DIOXIDE 25.8 mmol/L (21.0-32.0); CREATININE - SERUM 3.7 mg/dL (0.6-1.3); VANCOMYCIN - RANDOM 23.4 ug/mL (10.0-20.0)
[2016-05-16 07:54] VITALS: BP 132/76
[2016-05-16 12:22] VITALS: BP 130/72
[2016-05-16 15:45] VITALS: BP 122/72
--- NOTE | 2016-05-16 18:36 | NUR ---
CONSENTS FOR PROCEDURE SIGNED ON CHART. ALERT AND ORIENTED X4. NO CHANGE. DENIES SOB. CONTINUE PAIN MANAGEMENT ORDERED. CONTINUE PLAN OF CARE AND SAFETY PRECAUTIONS.
[2016-05-16 20:00] VITALS: BP 140/78
--- NOTE | 2016-05-16 21:14 | NUR ---
PT AWAKE, ALERT, ORIENTED, DENIES ANY NEEDS. PT IS C/O HER LEFT ARM HURTING, AND IS C/O BEING COLD. WILL CONTINUE TO MONITOR CLOSELY. WILL GIVE WARM COMPRESS FOR COMFORT.
[2016-05-17] VITALS: BP 146/89
[2016-05-17 04:00] VITALS: BP 117/64
--- NOTE | 2016-05-17 04:24 | NUR ---
PT RESTING COMFORTABLY, EASILY ROUSABLE TO VERBAL STIMULI, DENIES ANY NEEDS. CONTINUE TO MONITOR CLOSELY.
[2016-05-17 04:59] LABS: BASOPHILS 0.8 % (0.0-2.0); EOSINOPHILS 6.8 % (0-7); HEMOGLOBIN 9.1 g/dL (12-16); MCH 27.8 pg (26.0-34.0); MCHC 30.3 g/dL (31.0-37.0); MCV 91.7 fL (80.0-100.0); MEAN PLATELET VOLUME 9.4 fL (7.4-10.4); MONOCYTES 13.4 % (2-11); PLATELET COUNT 171 10x3/uL (130-400); RBC 3.27 10x6/uL (4.00-5.40); RDW 17.1 % (11.5-14.5); WBC 4.9 10x3/uL (4.8-10.8)
[2016-05-17 05:24] LABS: ANION GAP 17.5 mmol/L (8-16); CARBON DIOXIDE 23.2 mmol/L (21.0-32.0); CREATININE - SERUM 4.4 mg/dL (0.6-1.3); VANCOMYCIN - RANDOM 20.7 ug/mL (10.0-20.0)
[2016-05-17 05:33] LABS: POTASSIUM - SERUM 4.7 mmol/L (3.5-5.1)
--- NOTE | 2016-05-17 06:53 | NUR ---
PT WAS BIT BY A BLACK ANT WHILE LYING IN HER BED. THE BITE/STING OCCURRED ON HER LEFT ARM, CAUSING A STINGING PAIN AND DISCOMFORT. PT WAS GIVEN PO BENADRYL A PRECAUTION TO A POSSIBLE REACTION. PT DENIES ANY OTHER NEEDS. WORK ORDER SENT TO [employer] FOR ANT CONTROL.
[2016-05-17 08:50] VITALS: BP 125/69
--- NOTE | 2016-05-17 12:15 | NUR ---
ALERT AND ORIENTED X4. DIALYSIS COMPLETE. NOTIFY SURGERY. PRE-OP COMPLETE. CONSENTS SIGNED ON CHART. PRE-OP ASSESSMENT COMPLETE. TAKEN TO PROCEDURE VIA BED. CONTINUE PLAN OF CARE AND SAFETY PRECAUTIONS.
[2016-05-17 12:33] VITALS: BP 119/86
--- NOTE | 2016-05-17 15:37 | NUR ---
Nutrition follow-up: Pt NPO for surgery today PO intake of renal diet before surgery has been ~100% of meals Labs reviewed Wt: 139# RDN following.
--- NOTE | 2016-05-17 16:57 | NUR ---
ALONA RELIEVED AT 1650 PER Tania JIANG
--- NOTE | 2016-05-17 17:56 | NUR ---
FORCED AIR WARMING BLANKET APPLIED UPON ARRIVAL TO RR
--- NOTE | 2016-05-17 18:04 | OP ---
PATIENT NAME: NOLAN PAEZ MEDICAL RECORD: [id number] :51 LOCATION:D.M2 D.2104 ADMISSION DATE:05/13/16 SURGEON: NAHED WIGGINS MD DATE OF OPERATION: 05/15/2016 DATE OF OPERATION: 05/14/2016. 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 SURGEON: Nahed Wiggins MD. ANESTHESIA: General with LMA per TADEO and Dr. Marc. PREOPERATIVE NOTE: Ms. Paez, patient of Dr. Lion is a 66-year-old white female with scleroderma and end-stage renal disease, who is on chronic hemodialysis via a left upper extremity brachiocephalic arteriovenous fistula, which has been revised at the outflow tract converted to a HeRO outflow via the left internal jugular vein. She has extensive aneurysmal, deterioration of the cephalic vein portion of this access and was recently operated on for the clot. My plan had been to in the near future, return her to the operating room for an Acuseal PTFE bypass graft to exclude the aneurysmal fistula segment. She has ____ presented with a swollen, tender, red arm consistent with cellulitis and thrombosed fistula. She is brought to the operating room at this time for insertion of a Trialysis acute hemodialysis catheter for dialysis access and also to venous access for antibiotic medications. Under anesthesia per Dr. Marc and TADEO, the patient was placed in supine position, prepped and draped in a sterile manner. I used ultrasound to locate the right common femoral vein and use micropuncture technique to access it, which led up to insertion of 0.018 guidewire over which under fluoroscopy, dilators were passed and lastly the triple lumen acute Trialysis catheter 24cm in length inserted to the ____ reached up to approximately the iliac venous confluence and distal inferior vena cava. All 3 lumens were accessed and aspirated, free return of blood confirmed. They were then flushed with saline and then heparin lock, clamped and capped and sutured to the skin in the following groin with 2-0 silk. A sterile dressing including Maxorb Ag, Tegaderm and Cavilon skin prep was applied. I then exposed and examined to the left arm with ultrasound and confirmed clinical diagnosis of thrombosis of the fistula. I did not see any fluid collections proximally around the HeRO prosthetic. There was no definite or obvious abscess. The findings were consistent with thrombosis and cellulitis. The patient was then awakened and taken to the recovery room in stable condition. PLAN: The patient can have dialysis today and over the weekend with the temporary dialysis catheter. I will plan to return her to the operating room hopefully Tuesday afternoon, possibly Tuesday for an open exploration with removal of thrombus from the fistula and if the infection has sufficiently resolved and responded to antibiotic therapy, then implantation of an Acuseal OPERATIVE REPORT [id number] NOLAN PAEZ PTFE bypass graft from elbow to deltopectoral groove. There was no blood loss during the procedure today. All sponges, instruments and needles were accounted for. No drain was used and no surgical specimen was submitted today for histopathology. TRANSINT:[id number] Voice Confirmation ID: [id number] DOCUMENT ID: [id number] NAHED WIGGINS MD at 1804 CC: LIANET LION MD [id number] DICTATION DATE: 05/15/16 0925 SETTER COLD ROLLING MACHINE: 05/15/16 1018 ADM IN [facility] [address] [place] [address]
[2016-05-17 18:42] VITALS: BP 104/67
--- NOTE | 2016-05-17 18:48 | NUR ---
ARRIVE BACK TO ROOM VIA BED FROM RECOVERY ROOM. ALERT AND ORIENTED X4. RT GROIN TRIALYSIS REMOVED AND HEMOSPLIT PLACED. DRESSING CLEAN DRY INTACT. LT ARM DRESSING/IRRIGATION SYSTEM SECURE TO VANC AND WALL SUCTION. VANC INFUSING THROUGH LT ARM DRESSING AT 25ml/HR. 2ND TUBING IN LT ARM DRESSING HOOKED TO WALL LOW WALL SUCTION. BP-104/67, P-92, R-16, T-97 TEMPORAL. CONTINUE PLAN OF CARE AND SAFETY PRECAUTIONS. PREPARE SHIFT CHANGE REPORT.
--- NOTE | 2016-05-17 19:35 | NUR ---
PT LYING IN BED, AWAKE, ALERT, ORIENTED, REQUESTING PAIN MEDICATION. WILL GIVE PRN NORCO, BUT MAY NEED SOMETHING STRONGER. FAMILY/FRIENDS AT BEDSIDE. WILL CONTINUE TO MONITOR CLOSELY.
[2016-05-17 20:00] VITALS: BP 105/67
--- NOTE | 2016-05-17 20:02 | NUR ---
PER FABIOLA BENITEZ, TEST AND BALANCE ENGINEER FOR RENAL, GIVE BUPRENORPHINE 0.1-0.3MG IV Q 4 HOURS PRN SEVERE PAIN.
--- NOTE | 2016-05-17 23:53 | NUR ---
PTS B/P HAS BEEN FLUCTUATING SINCE BEING BACK FROM SURGERY. UPON INITIAL ADMIN OF PRN PAIN MEDICATIONS @ 20:00 - PTS B/P 108/63, WITH THE LOWEST BEING 86/56 WITHIN 2 HOURS AFTER ADMINISTRATION. PT IS ALSO C/O INCREASED THROBBING IN HER DISTAL TO HER LEFT ELBOW, WITH MODERATE SWELLING. HER LT ARM HAS BEEN ELEVATED ON 1 PILLOW, SO I PLACED A SECOND PILLOW UNDER LFT ARM, RECLINED PT BACK TO A 30 DEGREE ANGLE, AND RAISED PTS FEET AND LEGS FOR COMFORT AND TO AID WITH HER HYPOTENSION. PT HAS ALSO BEEN DRINKING A MOUNTAIN DEW TO HELP WITH HER B/P. PTS B/P IS CURRENTLY 112/69, AND PT STATES SHE FEELS BETTER. PRN BUPRENORPHINE GIVEN, WILL CONTINUE TO MONITOR CLOSELY. PT TO CALL WITH ANY IMMEDIATE CHANGES OR NEEDS.
[2016-05-18] VITALS: BP 89/56
[2016-05-18 04:00] VITALS: BP 96/60
[2016-05-18 05:47] LABS: BASOPHILS 0.7 % (0.0-2.0); EOSINOPHILS 1.6 % (0-7); HEMATOCRIT 28.8 % (36.0-48.0); IMMATURE GRANULOCYTES 0.1 % (0-5); LYMPHOCYTES 9.1 % (15-50); MCH 28.8 pg (26.0-34.0); MCHC 31.3 g/dL (31.0-37.0); MEAN PLATELET VOLUME 9.5 fL (7.4-10.4); NEUTROPHILS 73.5 % (40-80); PLATELET COUNT 151 10x3/uL (130-400); RBC 3.13 10x6/uL (4.00-5.40); RDW 17.1 % (11.5-14.5)
[2016-05-18 05:55] LABS: WBC 7.6 10x3/uL (4.8-10.8)
[2016-05-18 06:03] LABS: ANION GAP 18.1 mmol/L (8-16); CALCIUM 7.8 mg/dL (8.5-10.1); CARBON DIOXIDE 23.8 mmol/L (21.0-32.0); CREATININE - SERUM 3.4 mg/dL (0.6-1.3); POTASSIUM - SERUM 4.9 mmol/L (3.5-5.1); VANCOMYCIN - RANDOM 35.3 ug/mL (10.0-20.0)
--- NOTE | 2016-05-18 07:20 | NUR ---
RECEIVED REPORT. ASSUMED CARE OF PATIENT. CALL LIGHT WITHIN REACH. SUCTION TO LEFT ARM WITH CONTINUOUS VANC FLUSH TO LEFT UPPER ARM. DENIES NEEDS AT THIS TIME. NO DISTRESS.
[2016-05-18 07:54] VITALS: BP 95/52
--- NOTE | 2016-05-18 08:05 | NUR ---
MEDICATED FOR PAIN AT THIS TIME. NO DISTRESS.
--- NOTE | 2016-05-18 09:40 | NUR ---
MEDICATED FOR PAIN AT THIS TIME. NO DISTRESS.
--- NOTE | 2016-05-18 09:55 | NUR ---
PATIENT COMPLAIN OF NOT HAVING ANY URINE OUTPUT SINCE YESTERDAY PRIOR TO SURGICAL PROCEDURE. STATES THAT EVEN THOUGH SHE IS A RENAL PATIENT SHE STILL PRODUCES 800-1000 ML PER DAY. DURING REPORT, NOC NURSE STATES THAT NO OUTPUT BUT PATIENT IS DEHYDRATED. PATIENT BLADDER SCANNED AND FOUND TO HAVE 734ML OF URINE IN BLADDER. PATEINT STATES SHE HAS HX OR URINARY RETENSION AND USED TO HAVE A SALCEDO CATHETER AT ONE TIME.
--- NOTE | 2016-05-18 10:05 | NUR ---
SALCEDO CATHER 16FR PLACED VIA STERILE TECHNIQUE BY PN STUDENT AND NURSE INSTRUCTOR. 650 ML CLEAR STRAW COLOR URINE PRODUCED UPON INSERTION OF SALCEDO CATHETER TO DRAINAGE BAG VIA GRAVITY. PATIENT TOLERATED F/C INSERTION WELL. NO DISTRESS. PATIENT THANKED THIS BAG SHAKER FOR ALL OF MY HELP THUS FAR.
[2016-05-18 11:46] VITALS: BP 102/49
--- NOTE | 2016-05-18 12:07 | NUR ---
PATIENT VANC FLUSH NOTED TO LEAK AT [facility]. RECONNECTED, GOWN CHANGED. CALL LIGHT WITHIN REACH. NO DISTRESS.
--- NOTE | 2016-05-18 15:32 | NUR ---
Patient Name: NOLAN STOVALL Admission Status: Urgent Accout number: [id number] Admission Date: 05-13-2016 : 1950 Admission Diagnosis:STENOSIS OF OTHER VASCULAR PROSTH DEV/LETICIA, INIT Attending: NEGRO Current LOS: 5 Anticipated DC Date: Planned Disposition: Home Primary Insurance: MEDICARE A & B Discharge Planning Comments: * Is the patient Alert and Oriented? Yes 0 * How many steps to enter\exit or inside your home? RAMP 0 * PCP DR. LION 0 * Pharmacy [facility] [address] OR [facility] MAIL ORDER 0 * Preadmission Environment Home with Family 0 * ADLs Independent 0 * Equipment Cane Other Walker 0 * Other Equipment [facility] - MEDICAL EQUIPMENT PROVIDER NEXT STAGE - HOME DIALYSIS EQUIPMENT / SUPPLIES 0 * List name and contact numbers for known caregivers / representatives who currently or will assist patient after discharge: KAYLIN CAMPBELL, FRIEND, 0 * Community resources currently utilized Other 0 * Please name any agencies selected above. HOME DIALYSIS, 3 DAYS PER WEEK 0 * Additional services required to return to the preadmission environment? No 0 * Can the patient safely return to the preadmission environment? Yes 0 * Has this patient been hospitalized within the prior 30 days at any hospital? Yes 0 CM MET WITH PT IN ROOM TO DISCUSS DISCHARGE PLANNING AND NEEDS. PT REPORTS LIVING AT HOME INDEPENDENTLY WITH HER ADULT FRIEND. PT HAS HOME DIALYSIS EQUIPMENT AND DOES HOME DIALYSIS 3 DAYS PER WEEK. PT HAS A CANE AND WALKER AT HOME IF NEEDED. PT 'S MEDICAL EQUIPMENT PROVIDER IS [facility]. PT HAS NO OUTSIDE SERVICES ASSISTING IN THE HOME. CM DISCUSSED AVAILABILITY OF HOME HEALTH, REHAB SERVICES AND MEDICAL EQUIPMENT. PT DOES NOT ANTICIPATE HAVING DISCHARGE NEEDS, REPORTS HER FRIEND WILL PICK HER UP FOR DISCHARGE HOME. IMPORTANT MESSAGE FROM MEDICARE PROVIDED AND EXPLAINED. CM PROVIDED HOME HEALTH CHOICE FORM AND DISCUSSED PROCESS OF ARRANGING HOME HEALTH IF NEEDED. PT WILL NOTIFY CM IF SHE NEEDS HOME HEALTH. CM WILL CONTINUE TO FOLLOW AND ASSIST IF NEEDED. PT PLANS TO DISCHARGE HOME WITH HER FRIEND. PT HAS HOME HEALTH CHOICE LETTER AND CM CONTACT INFORMATION. CM TO ARRANGE HOME HEALTH SERVICES IF REQUIRED / ORDERED. Adjustment Supervisor: Shreyas Felton
[2016-05-18 15:43] VITALS: BP 81/48
--- NOTE | 2016-05-18 17:00 | NUR ---
ASSISTED PATIENT OOB FOR COMPLETE LINEN CHANGE. SAT TO CHAIR AT BEDSIDE UNTIL LINES CHANGED. ASSISTED PATIENT BACK TO BED. CALL LIGHT WIHTIN REACH. NO DISTRESS.
--- NOTE | 2016-05-18 17:45 | NUR ---
MEDICATED FOR PAIN AT THIS TIME. NO DISTRESS.
--- NOTE | 2016-05-18 20:02 | NUR ---
PT AWAKE, ALERT, ORIENTED, DENIES ANY ACUTE NEEDS. PAIN IS BEING MODERATELY CONTROLLED WITH HER PRN NORCO AND BUPRONEPHRINE. CONTINUE TO MONITOR CLOSELY. BED LOW, CALL LIGHT IN REACH, SIDE RAILS X 2, LEFT ARM ELEVATED ON PILLOW.
[2016-05-18 21:58] VITALS: BP 128/67
[2016-05-19] VITALS: BP 111/70
--- NOTE | 2016-05-19 04:20 | NUR ---
PT RESTING COMFORTABLY, DENIES ANY GREAT PAIN IN HER LEFT ARM AT THIS TIME. CONTINUE TO MONITOR CLOSELY.
[2016-05-19 04:44] LABS: BASOPHILS 0.7 % (0.0-2.0); EOSINOPHILS 6.7 % (0-7); HEMATOCRIT 25.8 % (36.0-48.0); HEMOGLOBIN 7.8 g/dL (12-16); IMMATURE GRANULOCYTES 0.2 % (0-5); LYMPHOCYTES 13.6 % (15-50); MCH 27.4 pg (26.0-34.0); MCHC 30.2 g/dL (31.0-37.0); MCV 90.5 fL (80.0-100.0); MONOCYTES 13.6 % (2-11); NEUTROPHILS 65.2 % (40-80); PLATELET COUNT 130 10x3/uL (130-400); RBC 2.85 10x6/uL (4.00-5.40); RDW 16.9 % (11.5-14.5); WBC 5.7 10x3/uL (4.8-10.8)
[2016-05-19 05:16] LABS: ANION GAP 19.8 mmol/L (8-16); CARBON DIOXIDE 21.4 mmol/L (21.0-32.0); POTASSIUM - SERUM 5.2 mmol/L (3.5-5.1); VANCOMYCIN - RANDOM 29.2 ug/mL (10.0-20.0)
[2016-05-19 05:18] LABS: CREATININE - SERUM 4.4 mg/dL (0.6-1.3)
[2016-05-19 06:05] VITALS: BP 113/62
--- NOTE | 2016-05-19 07:26 | NUR ---
RECEIVED PT REPORT. NO OTHER NEEDS AT THIS TIME. WILL CONTINUE PLAN OF CARE
[2016-05-19 07:55] VITALS: BP 123/66
--- NOTE | 2016-05-19 08:12 | NUR ---
PT IS ALERT. ASSESSMENT DONE PER FLOWSHEET. NO OTHER NEEDS AT THIS ITME. WILL CONTINUE TO MONITOR.
--- NOTE | 2016-05-19 09:52 | NUR ---
co of ants in the room, no co pain at this time. pt is alert. will continue to monitor.
[2016-05-19 11:51] VITALS: BP 102/58
--- NOTE | 2016-05-19 13:44 | NUR ---
Nutrition follow-up: Diet: Renal PO intake ~25-50% of meals -> pt on increased pain medication due to arm pain Labs reviewed Wt: 137# Will continue to provide food choices and honor food preferences. RDN will order Nepro BID. Following.
[2016-05-19 16:05] VITALS: BP 119/55
--- NOTE | 2016-05-19 19:15 | NUR ---
RECEIVED REPORT FROM DAY NURSE, PT IS RECEIVING DIALYSIS IN ROOM, DENIES ANY NEEDS AT THIS TIME, CALL LIGHT IN REACH, BED IS LOW, SRX2, WILL CONTINUE TO MONITOR
[2016-05-19 22:01] VITALS: BP 126/69
--- NOTE | 2016-05-20 00:04 | NUR ---
PATTERN RULER AT BEDSIDE TO OBTAIN VITALS, CALL LIGHT IN REACH. WILL CONTINUE WITH PLAN OF CARE.
--- NOTE | 2016-05-20 03:18 | NUR ---
ASSESSMENT COMPLETE, PT SLEEPING, CALL LIGHT IN REACH, WILL CONTINUE TO [place]
[2016-05-20 04:00] VITALS: BP 132/74
[2016-05-20 04:58] LABS: BASOPHILS 0.7 % (0.0-2.0); EOSINOPHILS 7.2 % (0-7); HEMATOCRIT 24.5 % (36.0-48.0); LYMPHOCYTES 17.8 % (15-50); MCH 27.6 pg (26.0-34.0); MCHC 30.6 g/dL (31.0-37.0); MCV 90.1 fL (80.0-100.0); MONOCYTES 12.3 % (2-11); PLATELET COUNT 150 10x3/uL (130-400); RBC 2.72 10x6/uL (4.00-5.40); RDW 16.8 % (11.5-14.5); WBC 4.6 10x3/uL (4.8-10.8)
[2016-05-20 05:04] LABS: HEMOGLOBIN 7.5 g/dL (12-16)
[2016-05-20 05:36] LABS: ANION GAP 15.5 mmol/L (8-16); CALCIUM 7.9 mg/dL (8.5-10.1); CREATININE - SERUM 3.3 mg/dL (0.6-1.3); POTASSIUM - SERUM 4.5 mmol/L (3.5-5.1); VANCOMYCIN - RANDOM 25.7 ug/mL (10.0-20.0)
--- NOTE | 2016-05-20 06:48 | NUR ---
RECEIVED PT REPORT AT 400....PT IS ALERT. NO OTHER NEEDS AT THIS TIME WILL CONTINUE TO MONITOR. WILL CONTINUE PLAN OF CARE.
[2016-05-20 08:41] VITALS: BP 118/68
--- NOTE | 2016-05-20 09:51 | NUR ---
PT IS ALERT. 2L NC APPLIED TO HELP PREVENT WOUND COMPLICATIONS PER DR. WIGGINS'S ORDERS.
--- NOTE | 2016-05-20 10:42 | NUR ---
WOUND CARE: REMOVED DRESSING FROM LEFT ARM (FROM ANTECUBITAL TO SHOULDER) - GENTLY CLEANSED WITH 4X4S AND WOUND FOOD SERVICE CASHIER/PATTING DRY. TRIPP ARE INTACT AND THERE IS NO REDNESS, EDEMA OR HEAT TO INCISION LINE. SLIGHT BRUSING IS NOTED. COVERED WITH MEPILEX LITE BORDERED DRESSING FROM SHOULDER DOWN. AT AC APPLIED MAXORB AG AND COVERED WITH TEGADERM (AROUND RESHMA DRAIN SITE). PT TOLERATED WELL. WOUND CARE CONTINUES TO FOLLOW.
--- NOTE | 2016-05-20 10:48 | NUR ---
02 @ 2L/MIN VIA NC IN PLACE ORDERED.
--- NOTE | 2016-05-20 11:05 | NUR ---
PT IS ALERT. NO SS OF DISTRESS AT THIS TIME. WILL CONTINUE TO MONTIOR.
[2016-05-20 12:00] VITALS: BP 105/60
[2016-05-20 16:13] VITALS: BP 113/59
--- NOTE | 2016-05-20 19:30 | NUR ---
RESUMED CARE OF PT, TALKING ON PHONE, DENIES ANY NEEDS, BED IS LOW, SRX2, CALL LIGHT IN REACH, WILL CONTINUE TO MONITOR
[2016-05-20 20:00] VITALS: BP 147/69
--- NOTE | 2016-05-21 03:37 | NUR ---
ASSESSMENT COMPLETE PER FLOWSHEET, SLEEPING, CALL LIGHT IN REACH, WILL CONTINUE TO MONITOR
[2016-05-21 04:00] VITALS: BP 124/53
[2016-05-21 04:48] LABS: BASOPHILS 0.6 % (0.0-2.0); EOSINOPHILS 7.4 % (0-7); HEMATOCRIT 23.7 % (36.0-48.0); LYMPHOCYTES 22.1 % (15-50); MCH 27.4 pg (26.0-34.0); MCHC 30.4 g/dL (31.0-37.0); MCV 90.1 fL (80.0-100.0); MEAN PLATELET VOLUME 8.8 fL (7.4-10.4); MONOCYTES 10.5 % (2-11); NEUTROPHILS 59.4 % (40-80); PLATELET COUNT 159 10x3/uL (130-400); RBC 2.63 10x6/uL (4.00-5.40); RDW 16.7 % (11.5-14.5); WBC 4.9 10x3/uL (4.8-10.8)
[2016-05-21 04:50] LABS: HEMOGLOBIN 7.2 g/dL (12-16)
[2016-05-21 04:54] LABS: ANION GAP 15.2 mmol/L (8-16); CARBON DIOXIDE 24.8 mmol/L (21.0-32.0); VANCOMYCIN - RANDOM 21.9 ug/mL (10.0-20.0)
[2016-05-21 04:55] LABS: CREATININE - SERUM 4.4 mg/dL (0.6-1.3)
--- NOTE | 2016-05-21 06:30 | NUR ---
RECEIVED PT REPORT. WILL CONTINUE PLAN OF CARE. NO OTHER NEEDS AT THIS TIME. WILL CONTINUE TO MONITOR.
[2016-05-21 08:00] VITALS: BP 148/64
--- NOTE | 2016-05-21 08:03 | NUR ---
PT IS ALERT. ASSESSMENT DONE PER FLOWSHEET. NO OTHER NEEDS AT THIS TIME. WILL CONTINUE TO MONITOR.
--- NOTE | 2016-05-21 13:05 | NUR ---
PT IS ALERT. NO SS OF DISTRESS WILL CONTINUE TO MONITOR. NO OTHER NEEDS
--- NOTE | 2016-05-21 13:58 | NUR ---
Nutrition Follow Up: Chart reviewed. Pt with LUE pain. Pt is eating 45% meal avg on a renal diet. She is receiving Nepro BID. Wt loss 3# since admit. I<O. No BM since admit. Labs noted. Meds noted including Reglan. Pt with fair po intake at this time. Rec continue current diet, supplement regimen. RD following.
--- NOTE | 2016-05-21 14:40 | NUR ---
DIALYSIS TREATMENT STOPPED 10 MIN EARLY, PATIENT HAD COMPLAINTS OF FEELING VERY HOT AND NAUSEATED, BLOOD WAS RETURNED, LINES FLUSHED, AND HEPARIN DWELLING. PATIENT HAD 2 UNITS OF PRBC'S ON TREATMENT. NET FLUID REMOVAL OF 1800ML.
[2016-05-21 15:21] VITALS: BP 155/80
--- NOTE | 2016-05-21 15:37 | NUR ---
WOUND CARE: PER DR. WIGGINS ORDER D/C'D IRRIGATION TUBING/RESHMA DRAIN FROM LEFT SHOULDER. PT WAS MEDICATED BY PRIMARY RN PRIOR TO REMOVAL. PT TOLERATED WELL. WILL CONTINUE TO MONITOR.
--- NOTE | 2016-05-21 16:59 | NUR ---
RECEIVED REPORT FROM DAY NURSE, PT TALKING ON PHONE, DENIES ANY NEEDS, CALL LIGHT IN REACH, WILL CONTINUE TO DO BLADDER TRAINING
[2016-05-21 20:34] VITALS: BP 117/75
[2016-05-22 00:26] VITALS: BP 117/71
--- NOTE | 2016-05-22 02:42 | NUR ---
ASSESSMENT COMPLETE SEE FLOWSHEET, CALL LIGHT IN REACH, WILL MONITOR
[2016-05-22 04:19] VITALS: BP 124/75
--- NOTE | 2016-05-22 05:09 | NUR ---
AGREE WITH MOTORCYCLE POLICE OFFICER'S ASSESSMENT. CONTINUE PLAN OF CARE.
[2016-05-22 05:36] LABS: BASOPHILS 0.6 % (0.0-2.0); EOSINOPHILS 8.9 % (0-7); LYMPHOCYTES 25.4 % (15-50); MCH 27.6 pg (26.0-34.0); MCHC 31.1 g/dL (31.0-37.0); MCV 88.9 fL (80.0-100.0); MEAN PLATELET VOLUME 9.4 fL (7.4-10.4); MONOCYTES 12.8 % (2-11); NEUTROPHILS 52.3 % (40-80); PLATELET COUNT 154 10x3/uL (130-400); WBC 4.9 10x3/uL (4.8-10.8)
[2016-05-22 05:40] LABS: HEMATOCRIT 32.8 % (36.0-48.0); HEMOGLOBIN 10.2 g/dL (12-16); RBC 3.69 10x6/uL (4.00-5.40)
[2016-05-22 05:56] LABS: ANION GAP 15.7 mmol/L (8-16); CALCIUM 8.6 mg/dL (8.5-10.1); CARBON DIOXIDE 26.7 mmol/L (21.0-32.0); CREATININE - SERUM 3.8 mg/dL (0.6-1.3); POTASSIUM - SERUM 4.4 mmol/L (3.5-5.1); VANCOMYCIN - RANDOM 16.9 ug/mL (10.0-20.0)
--- NOTE | 2016-05-22 07:34 | NUR ---
AM ROUNDS - PT IN BED ON BACK. IV TO RIGHT FA, SL. ON 2L O2 VIA NC. RESHMA DRAIN TO LEFT FA. DRESSING TO LEFT FA, HEROGRAFT TO LEFT FA, NEGATIVE BRUIT AND THRILL. NO NEEDS AT THIS TIME. WILL CONTINUR TO MONITOR.
[2016-05-22 07:58] VITALS: BP 139/62
[2016-05-22 11:54] VITALS: BP 154/70
[2016-05-22 15:39] VITALS: BP 172/75
--- NOTE | 2016-05-22 19:03 | NUR ---
SITTING UP IN BED, AAOX3, SKIN WARM AND DRY, RESP UNLABORED, IV PATENT TO RIGHT FOREARM, LEFT ARM DRESSING INTACT WITH RESHMA DRAIN IN PLACE, O2@2LNC, NO DISTRESS NOTED
[2016-05-22 20:19] VITALS: BP 178/69
[2016-05-23 00:38] VITALS: BP 126/74
[2016-05-23 04:25] VITALS: BP 122/77
[2016-05-23 05:06] LABS: BASOPHILS 1.3 % (0.0-2.0); EOSINOPHILS 9.2 % (0-7); HEMATOCRIT 31.7 % (36.0-48.0); HEMOGLOBIN 9.7 g/dL (12-16); IMMATURE GRANULOCYTES 0.2 % (0-5); LYMPHOCYTES 20.4 % (15-50); MCH 27.5 pg (26.0-34.0); MCHC 30.6 g/dL (31.0-37.0); MCV 89.8 fL (80.0-100.0); MEAN PLATELET VOLUME 9.5 fL (7.4-10.4); MONOCYTES 16.6 % (2-11); NEUTROPHILS 52.3 % (40-80); PLATELET COUNT 167 10x3/uL (130-400); RBC 3.53 10x6/uL (4.00-5.40); RDW 15.8 % (11.5-14.5); WBC 5.5 10x3/uL (4.8-10.8)
[2016-05-23 05:37] LABS: ANION GAP 20.6 mmol/L (8-16); CALCIUM 8.8 mg/dL (8.5-10.1); CARBON DIOXIDE 21.9 mmol/L (21.0-32.0); CREATININE - SERUM 4.8 mg/dL (0.6-1.3); PHOSPHOROUS 6.3 mg/dL (2.5-4.9); POTASSIUM - SERUM 4.5 mmol/L (3.5-5.1); VANCOMYCIN - RANDOM 30.5 ug/mL (10.0-20.0)
--- NOTE | 2016-05-23 06:25 | NUR ---
RESTING QUIETLY IN BED
--- NOTE | 2016-05-23 07:35 | OP ---
PATIENT NAME: NOLAN PAEZ MEDICAL RECORD: [id number] :52 LOCATION:D.M2 D.2104 ADMISSION DATE:05/13/16 SURGEON: NAHED WIGGINS MD DATE OF OPERATION: 05/17/2016 PREOPERATIVE DIAGNOSIS: Thrombosed, infected AV fistula/HeRO graft, left upper extremity. POSTOPERATIVE DIAGNOSIS: Thrombosed, infected AV fistula/HeRO graft, left upper extremity. OPERATIONS PERFORMED: Excision of cephalic vein AV fistula in the left arm with resection and repair of brachial artery pseudoaneurysm, thrombectomy of HeRO outflow device and implantation of a new 6-mm diameter Acuseal PTFE graft around the old fistula bed through a new subcutaneous tunnel. SURGEON: Nahed Wiggins MD. ANESTHESIA: General per HELICOPTER REPAIRER with an LMA. REFERRING PHYSICIAN: Froy Lion MD. PREOPERATIVE NOTE: Mrs. Paez is a very pleasant 66-year-old white female with scleroderma with multisystem involvement and end-stage renal disease, on chronic hemodialysis. She has been dialyzing up until now with a left upper extremity brachiocephalic AV fistula, which was converted successfully to a HeRO outflow sometime ago. She presented with a swollen, erythematous, very painful, tender arm and thrombosis of the fistula. She has had a temporary catheter inserted via the femoral approach and has had dialysis and she is brought to the operating room today after several days of antibiotic therapy with plans to open and explore the fistula. She has a very prominent arterial anastomotic pseudoaneurysm as well, which may have to be addressed today. PROCEDURE IN DETAIL: Under anesthesia, the patient was prepped and draped in a sterile manner. She was first examined with ultrasound and I confirmed that indeed the fistula was thrombosed. I made an oblique incision through which I exposed the arterial anastomosis and the cephalic vein proximal to it. The brachial artery proximal and distally was exposed and controlled with doubly looped Silastic tapes and the circumferential dissection of the fistula was performed. The incision was then extended cephalad over the fistula and the entire fistula was mobilized. The vein to PTFE anastomosis was exposed and the PTFE segment of the HeRO mobilized. The patient was systemically heparinized. The pseudoaneurysm was crossclamped and the PTFE graft proximally clamped. The fistula was opened and evacuated of thrombus and I found an abscess pocket in the wall of the vein located rather proximally, which contained 2-3 cc of creamy, [id number] purulent liquid. Swabs of which demonstrated Gram-positive cocci on Gram stain and mini wbc's. Cultures for aerobic and anaerobic organisms were obtained and the wound thoroughly irrigated with antibiotic solution containing Ancef and gentamicin. I transected the PTFE and transected the pseudoaneurysm and removed the specimen from the field. The pseudoaneurysm was cut back to the brachial artery itself. I chose a 6-mm Acuseal graft and beveled it and anastomosed it end-to-side to the brachial artery with continuous running 6-0 Prolene. The graft was placed in a new more lateral fresh subcutaneous tunnel, isolated from the previous fistula tract and was brought up to the deltopectoral groove. The rigid silicone nitinol stent OPERATIVE REPORT [id number] NOLAN PAEZ portion of the HeRO was clamped and the old PTFE disconnected from it. I then shortened and connected the new Acuseal PTFE graft to the HeRO outflow device using the new titanium adaptor. When all the anastomoses and connections were completed and the occluding loops and clamps were released, excellent flow was established in the new fistula and flow distally into the hand was preserved as documented by hand-held Doppler exam. The wounds were again and actually several times irrigated during the procedure with antibiotic solution. I placed 2 drains, one a 19-New Zealander round RESHMA fluted drain in from above and the other a 10-mm wide flat fluted RESHMA-type drain placed from below. These drains were left in the depths of the wound and would be used for postoperative antibiotic irrigation and suction. The wound was closed with interrupted 3-0 Vicryl and the skin closed in part with interrupted vertical mattress sutures of 3-0 Vicryl and proximally with jaci. The skin overlying the new graft just above the antecubital space was quite thin and a bit dusky and I was concerned for possible ischemia becoming a major problem there. A sterile dressing was applied and the patient awakened and taken to the recovery room. Heparin was reversed with protamine. Blood loss was minimal and unreplaced. All sponges, instruments and needles were accounted for. Two drains were used as I described above. PLAN: The patient will be kept in the hospital on inpatient basis, continued on systemic anti-staphylococcal and anti-Gram positive antibiotics while we conducted the irrigation suction for the next 48-72 hours. TRANSINT:[id number] Voice Confirmation ID: [id number] DOCUMENT ID: [id number] NAHED WIGGINS MD at 0735 CC: FROY LION MD [id number] DICTATION DATE: 05/21/16 0816 EMERGENCY VEHICLE DISPATCHER: 05/21/16 1513 ADM IN [facility] [address] [place] [address]
--- NOTE | 2016-05-23 07:47 | NUR ---
AM ROUNDING- RECEIVED REPORT FROM XM1 TANK DRIVER NURSE ROSSY. PT IS CURRENTLY LAYING IN BED ON BACK WITH EYES OPEN RESTING. RESHMA DRAIN SEEN WITH BLOOD-TINGED DRAINAGE. ON 02 AT 2L VIA NC. NO MONITOR. IV SEEN TO RIGHT FOREARM WITH NS RUNNING AT KVO (10CC). RESERVE LEFT ARM FOR HEROGRAFT TO LEFT UPPER ARM (WITH RESHMA DRAIN CONNECTED WITH BLOOD-TINGED DRAINAGE FROM WHERE PT HAD HEROGRAFT DONE). RIGHT GROIN HEMOSPLIT SEEN WHERE PT HAS DIALYSIS DONE CURRENTLY. CLEAN, DRY, AND INTACT DRESSING SEEN TO LEFT CHEST AREA. PT IS ALERT AND ORIETNED AND UP AD THEE. NO NEED AT CURRENT TIME. WILL CONTINUE TO MONITOR AND CONTINUE WITH PLAN OF CARE.
[2016-05-23 08:38] VITALS: BP 146/83
--- NOTE | 2016-05-23 10:09 | NUR ---
CHAPO CALHOUN ASSISTED IN REMOVING PTS RESHMA DRAIN ORDERED. RESHMA DRAIN REMOVED WITH TUBING INTACT. PRESSURE HELD ON SITE FOR 5 MINUTES. CLEANED SITE ORDERED AND PLACED 4X4 GUAZE PADS OVER SITE, SECURED WITH TEGADERM. REMOVED PTS DRESSING TO INCISON SITE TO LEFT UPPER ARM ORDERED WHERE PT HAD HERO GRAFT DONE PER REPORT. INCISON SITE IS CLEAN WITH TRIPP AND STITCHES INTACT. NO DRAINAGE SEEN. CLEANED SITE ORDERED AND COVERED SITE WITH MEPILEX DRESSING. TOLERATED WELL. WILL CONTINUE TO MONITOR.
[2016-05-23 12:45] VITALS: BP 135/72
--- NOTE | 2016-05-23 17:00 | NUR ---
1620- PT IS GOING OUTSIDE VIA WHEELCHAIR ACCOMPANIED BY SISTER VIA WHEELCHAIR.
--- NOTE | 2016-05-23 17:01 | NUR ---
1700- PT BACK FROM OUTSIDE WITH SISTER.
[2016-05-23 17:05] VITALS: BP 148/95
--- NOTE | 2016-05-23 17:57 | NUR ---
PT IS CURRENTLY OUT WALKING WITH ASSISTANCE FROM HER SISTER. NO NEED AT CURRENT TIME. WILL CONTINUE TO MONITOR.
[2016-05-23 20:00] VITALS: BP 133/79
--- NOTE | 2016-05-23 21:07 | NUR ---
PT AWAKE, ALERT, ORIENTED, DENIES ANY NEEDS AT THIS TIME. PT IS LOOKING FORWARD TO BEING D/C'D TOMORROW. CONTINUE TO MONITOR CLOSELY.
[2016-05-24 04:00] VITALS: BP 132/71
--- NOTE | 2016-05-24 04:35 | NUR ---
PT IS C/O RT LEG THIGH PAIN WITH A LUMP PRESENT WHEN PALPATING. PT STATES SHE THINKS IT MAY BE RELATED TO HER HEMOSPLIT. THERE IS NOT REDNESS OR DISCOLORATION AT THIS TIME, NO GENERALIZED SWELLING OR STREAKING. PT TO CALL WITH ANY CHANGES. CONTINUE TO MONITOR CLOSELY.
[2016-05-24 04:36] LABS: EOSINOPHILS 8.6 % (0-7); HEMATOCRIT 30.5 % (36.0-48.0); HEMOGLOBIN 9.5 g/dL (12-16); IMMATURE GRANULOCYTES 0.2 % (0-5); LYMPHOCYTES 22.6 % (15-50); MCH 27.6 pg (26.0-34.0); MCHC 31.1 g/dL (31.0-37.0); MCV 88.7 fL (80.0-100.0); MEAN PLATELET VOLUME 9.3 fL (7.4-10.4); MONOCYTES 14.2 % (2-11); NEUTROPHILS 53.4 % (40-80); PLATELET COUNT 176 10x3/uL (130-400); RBC 3.44 10x6/uL (4.00-5.40); RDW 15.7 % (11.5-14.5); WBC 5.1 10x3/uL (4.8-10.8)
[2016-05-24 04:53] LABS: ANION GAP 20.5 mmol/L (8-16); CALCIUM 8.8 mg/dL (8.5-10.1); CARBON DIOXIDE 21.3 mmol/L (21.0-32.0); CREATININE - SERUM 5.5 mg/dL (0.6-1.3); POTASSIUM - SERUM 4.8 mmol/L (3.5-5.1); VANCOMYCIN - RANDOM 26.3 ug/mL (10.0-20.0)
[2016-05-24 07:42] VITALS: BP 116/65
--- NOTE | 2016-05-24 09:55 | NUR ---
PT LEAVING FLOOR FOR DIALYSIS. VANCOMYCIN SENT WITH HER.
--- NOTE | 2016-05-24 11:45 | NUR ---
Patient Name: NOLAN STOVALL Encounter No: [id number] : 1950 Primary Insurance: MEDICARE A & B Anticipated DC Date: 05-24-2016 Planned Disposition: Home DCP follow-up note: CM MET WITH PT IN ROOM TO DISCUSS DISCHARGE NEEDS AND PLANNING. CM DISCUSSED AVAILABILITY OF HOME HEALTH, REHAB SERVICES AND MEDICAL EQUIPMENT. PT DENIES DISCHARGE NEEDS. PT'S SISTER TO TRANSPORT HOME AT DISCHARGE. IMPORTANT MESSAGE FROM MEDICARE PROVIDED AND EXPLAINED. Shreyas Felton, CASE MANAGEMENT
--- NOTE | 2016-05-24 12:51 | NUR ---
PT WAS UNABLE TO HAVE DIALYSIS R/T ACCESS COMPLICATIONS. STILL CONFIRMS DISCHARGE AND WANTS HER TO GET HER VANC BEFORE LEAVING. INITIATED VANC IVPB INFUSING VIA R.FA PIV. PT EATING LUNCH AWAITING ON DISCHARGE PAPERS NO FURTHER NEEDS AT THIS TIME.
--- NOTE | 2016-05-24 14:11 | NUR ---
SPOKE TO [facility]...HOLDING DC UNTIL TOMORROW, DR WIGGINS WILL EXCHANGE CATHETER IN AM AND THEY WILL PROVIDE HD BEFORE DC'ING PT
--- NOTE | 2016-05-24 14:51 | NUR ---
ORDERS OBTAINED FROM DR. WIGGINS FOR HEMOSPLIT EXCHANGE IN AM(05/25). OR CONTACTED AND OR ALREADY SCHEDULED. SPOKE WITH ROLF.
[2016-05-24 15:25] VITALS: BP 156/84
[2016-05-24 20:00] VITALS: BP 132/73
--- NOTE | 2016-05-24 20:08 | NUR ---
UP WITH ASSIST TO BR.
--- NOTE | 2016-05-24 21:00 | NUR ---
CONSENTS SIGNED FOR HEMOSPLIT EXCHANGE TO BE DONE ON 05/25/16. REMINDED PT NOTHING TO EAT OR DRINK AFTER MN, PT STATED UNDERSTANDING.
[2016-05-25] VITALS: BP 124/74
--- NOTE | 2016-05-25 01:03 | NUR ---
RESTING WITH EYES CLOSED, RESPERATIONS EVEN, NO S/S DISTRESS NOTED.
[2016-05-25 04:00] VITALS: BP 123/69
--- NOTE | 2016-05-25 04:13 | NUR ---
IN BED RESTING, EYES CLOSED, RESPERATIONS EVEN.
[2016-05-25 04:29] LABS: BASOPHILS 0.9 % (0.0-2.0); EOSINOPHILS 8.7 % (0-7); HEMATOCRIT 28.9 % (36.0-48.0); HEMOGLOBIN 9.1 g/dL (12-16); IMMATURE GRANULOCYTES 0.3 % (0-5); LYMPHOCYTES 21.8 % (15-50); MCH 28.1 pg (26.0-34.0); MCHC 31.5 g/dL (31.0-37.0); MCV 89.2 fL (80.0-100.0); MEAN PLATELET VOLUME 9.5 fL (7.4-10.4); MONOCYTES 9.2 % (2-11); NEUTROPHILS 59.1 % (40-80); PLATELET COUNT 189 10x3/uL (130-400); RBC 3.24 10x6/uL (4.00-5.40); RDW 15.7 % (11.5-14.5); WBC 5.7 10x3/uL (4.8-10.8)
[2016-05-25 05:11] LABS: ANION GAP 20.6 mmol/L (8-16); CALCIUM 8.6 mg/dL (8.5-10.1); CARBON DIOXIDE 20.5 mmol/L (21.0-32.0); CREATININE - SERUM 5.8 mg/dL (0.6-1.3); POTASSIUM - SERUM 5.1 mmol/L (3.5-5.1); VANCOMYCIN - RANDOM 38.2 ug/mL (10.0-20.0)
[2016-05-25 07:47] VITALS: BP 126/88; BP 128/70
--- NOTE | 2016-05-25 09:38 | NUR ---
OR CALLED TO PRE-OP PT. PREOP MEDS GIVEN, ASSISTED PT TO BR TO VOID. PT VOIDED AND NOW LEAVING FOR SX. NO FURTHER NEEDS.
[2016-05-25] MEDS ORDERED: VIBRAMYCIN50 MG PO (11:13)
--- NOTE | 2016-05-25 11:37 | NUR ---
PT RETURNED FROM OR. VSS. PT DID NOT HAVE HEMESPLIT REPLACED R/T IT BEING FINE AND WAS JUST REPOSITIONED. PT SITTING UP IN BED A&O. DENIES ANY CURRENT PAIN. WILL MONITER VS Q15MIN PER POLICY. NO FURTHER NEEDS AT THIS TIME.
[2016-05-25 11:38] VITALS: BP 133/73
--- NOTE | 2016-05-25 13:04 | NUR ---
DRESSING TO LEFT AVF CHANGED. INCISION IS 28 CM LONG WITH SURGICAL CLIPS INTACT. INCISION IS CLEAN AND DRY. COVERED WITH MEPILEX BORDER AG AND THE LOWER PART OF THE INCISION HAS CLEAN 4 X 4'S AND LARGE OPSITE. DATED. PATIENT TOLERATED WELL.
--- NOTE | 2016-05-25 14:33 | NUR ---
Patient Name: NOLAN STOVALL Encounter No: [id number] : 1950 Primary Insurance: MEDICARE A & B Anticipated DC Date: 05-24-2016 Planned Disposition: Home with Home Health External Planned Provider: [facility] DCP follow-up note: CM RECEIVED HOME HEALTH ORDER, MET WITH PT IN ROOM AND DISCUSSED ORDER AND HOME HEALTH PROVIDERS. PT USED [facility] IN THE PAST AND WOULD LIKE TO USE THEM AGAIN. PT ADVISED THAT [facility] AT THE DIALYSIS CLINIC IS WORKING ON ARRANGEMENTS FOR DRESSING CHANGES AT THE UNIT. CM CALLED [facility], , SPOKE TO TAMAR WHO ADVISED CM THAT SHE HAS SPOKEN TO THE NURSE AND THEY ARE NOT ABLE TO COMPLETE THE COMPLEX DRESSING CHANGES ON PT'S ARM AT PT'S DIALYSIS AT THE UNIT. PT NOTIFIED WHO REPORTS AWARENESS OF HER DIALYSIS SCHEDULE THAT SHE RECEIVED FROM LYNDA AT THE CLINIC. PT AWARE THAT HOME HEALTH WILL CONTACT HER TO ARRANGE HOME HEALTH FOLLOWUP. PT'S SISTER TO TRANSPORT HER HOME AFTER DIALYSIS TODAY. CM RECEIVED MESSAGE FROM MIGUE LIM, PT PATHWAYS COORDINATOR WHO ADVISED THAT PT'S OUTPATIENT DIALYSIS SCHEDULE AT [facility] WILL BE T/T/SA, 1205, FIRST VISIT TUESDAY AT 1145. CM CALLED [facility], , SPOKE TO KALI AND VERIFIED THAT HOME HEALTH CAN ACCOMODATE THE DRESSING CHANGES ON PT'S ARM. CM SPOKE TO LYNDA AT [facility] AND PROVIDED REFERRAL INFORMATION, FAXED REFERRAL TO [facility] AT [phone]. NO FURTHER DISCHARGE NEEDS IDENTIFIED. Shreyas Felton, CASE MANAGEMENT
--- NOTE | 2016-05-25 15:17 | NUR ---
DISCHARGE TEACHING PROVIDED AND PAPERS SIGNED. D/C PTS R.FA PIV WITH CATHETER TIP FULLY INTACT. PT STILL RECIEVING DIALYSIS AND WHEN COMPLETED HER SISTER WILL PICK HER UP FOR DISCHARGE AFTER.
[2016-05-25 16:12] VITALS: BP 107/69
--- NOTE | 2016-05-25 16:23 | NUR ---
DIALYSIS COORDINATOR: PATHWAYS: Patient will be doing in-center dialysis for now. Patient will be Tues/Th/Sat @ 11:45 with on-time of 12:05. CM notified. ELDON DAS.
== END 2016-05-25 17:44 | disposition home health service (06) | DRG 264 ==
LOC: D.M2 10:02
PROVIDERS: Internal Medicine Nephrology; Surgery; ADMIT Internal Medicine Nephrology
DX: T82.858A Stenosis of other vascular prosthetic devices, implants and grafts, initial encounter (principal); N18.6 End stage renal disease; I12.0 Hypertensive chronic kidney disease with stage 5 chronic kidney disease or end stage renal disease; Y83.8 Other surgical procedures as the cause of abnormal reaction of the patient, or of later complication, without mention of misadventure at the time of the procedure; Z99.2 Dependence on renal dialysis; E03.9 Hypothyroidism, unspecified; D63.1 Anemia in chronic kidney disease; M34.9 Systemic sclerosis, unspecified; T82.7XXA Infection and inflammatory reaction due to other cardiac and vascular devices, implants and grafts, initial encounter

== ENCOUNTER 2016-07-03 16:10 | Inpatient (IN) | payer MEDICARE, OTHER ==
[~2016-07-03] VITALS: Ht 165.1 cm; Wt 70.7 kg
--- NOTE | ~2016-07-03 | OP ---
PATIENT NAME: NOLAN PAEZ MEDICAL RECORD: [id number] :[birth year] LOCATION:D. 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 OPERATION PERFORMED: Fistulogram followed by open excision of infected graft with open direct repair with a bovine pericardial patch of the brachial artery and open revision of AV graft with implantation of the jump graft between the brachial artery at a more proximal level and debridement of the brachial artery and debridement of skin and wound closure by a locally mobilized skin and subcutaneous tissue flap and application of a wound VAC dressing to the resultant open wound. SURGEON: Nahed Wiggins MD ANESTHESIA: General with LMA per PULL OVER. PREOPERATIVE NOTE: Ms. Paez is a very sweet 66-year-old white female patient with scleroderma and end-stage renal disease, who also has multiple central vein stenoses or occlusions and has been dialyzing for some time with a left brachiocephalic AV fistula converted to a HeRO graft. That fistula thrombosed and had to be totally revised fairly recently with an Acuseal graft extension from her HeRO outflow device to the brachial artery at the level of the antecubital space. At that operation, there was difficulty in mobilizing sufficient skin to provide coverage of the arterial anastomosis without some undue tension and indeed subsequent to that operation despite a course of hyperbaric oxygen therapy, she has gone on to have an area of erosion with exposure of the PTFE graft and a circular area about the size of a dime with exposed PTFE really right on top of the arterial anastomosis. Yesterday and the day before while dialyzing at home, she was unable to access her graft. She was admitted to the hospital yesterday and on physical examination, the graft was patent and did not seem to have any problem which would permit it from being accessed and utilized for dialysis. Her laboratory studies and physical exam indicated that it was safe for her to postpone dialysis until today or perhaps Tuesday and to go to the operating room today to have a major revision of her access in the left arm. Hopefully, we can salvage this access and avoid the need for bridging catheter. DESCRIPTION OF PROCEDURE: With the patient under general anesthesia with LMA per PULL OVER, she was prepped and draped in a sterile manner. An incision was made directly over the brachial artery in the distal arm well above the antecubital space. The artery there was quite dilated, it was soft and exhibited no signs of atherosclerosis. It was controlled with 2 doubly looped Silastic tapes. The incision was then extended distalward and crossed the antecubital space with a sigmoid configuration. The brachial artery and the anastomosis were then OPERATIVE REPORT [id number] KINA PAEZA Anna dissected from the surrounding tissues. The skin erosion was excised and mobilized along with the PTFE graft. Once the dissection was sufficient, the patient was heparinized with 3000 units of heparin and the patient's graft was clamped. It was exposed to a more proximal incision and an area for anticipated division was determined. The graft was then flushed with heparinized saline and again clamped. The brachial artery was occluded above and below the area of anastomosis and aneurysmal change and the graft was removed and all the sutures removed and the margin of the arteriotomy there was debrided sharply. Some chronic granulation tissue along the margins of the anastomosis was removed aggressively. The artery was flushed proximally and distally with heparinized saline and the defect in the artery then repaired with a bovine pericardial patch. A elke shaped onlay approximately about 1.5 cm in length and 0.75 cm in diameter was used and sutured circumferentially with running 7-0 Prolene. When completed and the occluding loops released, excellent flow was reestablished in the brachial artery proximally and distal and in the radial and ulnar arteries at the wrist as noted with Doppler. The suture line was hemostatic. It was treated with Fibrillar and some thrombin before an additional suture was taken, which completed the hemostasis. The distal graft, which was the exposed "infected" segment was then mobilized up to the incision in the arm where it was then transected and the segment of graft removed. It was sent for culture. I chose a 6-mm diameter Higden Propaten PTFE graft, 10 cm in length. It was anastomosed end-to-end to the Acuseal graft with running 6-0 Prolene and the suture line treated with BioGlue. The graft was flushed with heparinized saline and clamped. It was then placed in a new more proximal tunnel over to the brachial artery which was occluded with the Silastic loops, opened and flushed proximally and distally with heparinized saline and the new graft was beveled and anastomosed end-to-side to the artery with running 6-0 Prolene. Upon completion and release of the occluding clamps and loops, excellent flow was established within the graft and the HeRO device and the suture lines were all hemostatic. The patient's heparin was not reversed. I then mobilized the skin flaps in order to cover the brachial artery and the repaired aneurysmal segment with intact, well vascularized skin and subcutaneous tissues. This was a pseudo Z-plasty of sorts. The wounds were closed in layers with interrupted inverted 3-0 Vicryl and the skin closed where possible with interrupted simple 4-0 Prolene sutures. The resultant open wound below the level of the brachial artery on the volar aspect of the forearm was then dressed with a wound VAC dressing, applying a florez sponge over an Adaptic gauze layer. The brachial artery segment was not exposed to the vacuum dressing. The patient's HeRO graft was functioning well at this point, and I noted that there is a very sufficient length of accessible graft so that she should be able to dialyze with this without even having to have her surgical bandages or the VAC dressing removed. She was awakened and taken to the recovery room in stable condition. Blood loss during the operation was 30-40 cc, none was replaced intraoperatively, and all sponges, instruments and needles were accounted for. No drain was used and no surgical specimen was submitted for histopathology, although several pieces of tissue and the resected infected graft segment were sent for culture. TRANSINT:[id number] Voice Confirmation ID: [id number] DOCUMENT ID: [id number] OPERATIVE REPORT [id number] NOLAN PAEZ JAMES MD CC: FROY LION MD [id number] DICTATION DATE: 07/04/164 PLATE MOUNTER: 07/05/16 0035 ADM IN [facility] [address] [place] [address]
[~2016-07-03 16:10] MED LIST changes: +VIBRAMYCIN50 MG PO
--- NOTE | 2016-07-03 18:42 | NUR ---
PT ARRIVED TO FLOOR VIA WHEELCHAIR BY STAFF MEMBER. PT HAS A DRESSING TO LEFT ARM AND STATES THAT HER AVF NEEDS SURGERY. FRIEND AT BEDSIDE. PT HAS NO FUTHER NEEDS AT THIS TIME. B/P 165/88 P 86 R 18 TEMP 98.0 POX 98% RA
[2016-07-03 19:22] LABS: BASOPHILS 0.5 % (0-2); EOSINOPHILS 3.7 % (0-7); HEMATOCRIT 28.7 % (36.0-48.0); IMMATURE GRANULOCYTES 0.2 % (0-5); LYMPHOCYTES 21.4 % (15-50); MCH 28.5 pg (26.0-34.0); MCHC 31.4 g/dL (31.0-37.0); MCV 90.8 fL (80.0-100.0); MEAN PLATELET VOLUME 8.9 fL (7.4-10.4); MONOCYTES 5.7 % (2-11); NEUTROPHILS 68.5 % (40-80); PLATELET COUNT 170 10x3/uL (130-400); RBC 3.16 10x6/uL (4.00-5.40); RDW 19.5 % (11.5-14.5); WBC 5.7 10x3/uL (4.8-10.8)
[2016-07-03 19:27] LABS: ANION GAP 17.9 mmol/L (8-16); CALCIUM 8.2 mg/dL (8.5-10.1); CARBON DIOXIDE 25.7 mmol/L (21.0-32.0); CREATININE - SERUM 5.1 mg/dL (0.6-1.3); INR 1.07 (0.85-1.17); POTASSIUM - SERUM 3.6 mmol/L (3.5-5.1); PROTIME 13.8 SECONDS (11.6-15.0)
--- NOTE | 2016-07-03 19:30 | NUR ---
SITTING UP IN BED, AAOX3, SKIN WARM AND DRY, RESP UNLABORED, LEFT ARM SWOLLEN WITH DRESSING IN PLACE, FAMILY AT BEDSIDE, NO DISTRESS NOTED
[2016-07-03 20:20] VITALS: BP 150/77
[2016-07-04 00:09] VITALS: BP 146/67
[2016-07-04 01:08] VITALS: Ht 165.1 cm; Wt 70.7 kg
[2016-07-04 04:15] VITALS: BP 127/75
[2016-07-04 07:23] VITALS: BP 139/80
[2016-07-04 14:53] VITALS: BP 165/57
[2016-07-04 16:10] VITALS: BP 169/59
[2016-07-04 20:00] VITALS: BP 142/61
--- NOTE | 2016-07-04 23:28 | NUR ---
INITIAL ROUNDS COMPLETED AT 1915 HRS. PT STATES DA HELPING PAIN. ASSESSMENT COMPLETED AT 2010 HRS. VSS. IV TO R HAND WITH NS AT 10CC/HR. IV PATENT. SCD'S IN USE. NO BREAKDOWN NOTED. WOUND VAC TO LAC WITH SCANT FLUID NOTED. DRESSING ABOVE LAC CLEAN, DRY AND INTACT. 1+ EDEMA NOTED TO L ARM AND L ARM ELEVATED ON PILLOWS. DRESSING TO R FOOT CLEAN, DRY AND INTACT. LUNGS CTA. PM MEDS GIVEN INCLUDING RESTORIL FOR SLEEP. PT CURRENTLY RESTING WITH EYES CLOSED. RESP EVEN AND REGULAR. SR UP X2, CALL LIGHT WITHIN REACH.
[2016-07-05] VITALS: BP 142/62
--- NOTE | 2016-07-05 00:19 | NUR ---
VSS. PT DENIES ANY DISCOMFORT. WILL CONTINUE TO MONITOR.
--- NOTE | 2016-07-05 02:35 | NUR ---
PT AWAWK; DENIES ANY DISCOMFORT. WILL CONTINUE TO MONITOR.
[2016-07-05 04:00] VITALS: BP 129/54
--- NOTE | 2016-07-05 04:44 | NUR ---
PT RESTING WITH EYES CLOSED. RESP EVEN AND REGULAR. SR UP X2, CALL LIGHT WITHIN REACH.
--- NOTE | 2016-07-05 06:01 | NUR ---
VSS THROUGHOUT NIGHT. PT STATED SHE RESTED WELL. NEEDS MET; WILL CONTINUE TO MONITOR.
[2016-07-05 08:29] VITALS: BP 143/67
[2016-07-05 10:02] LABS: BASOPHILS 0.5 % (0-2); EOSINOPHILS 4.5 % (0-7); HEMATOCRIT 23.4 % (36.0-48.0); IMMATURE GRANULOCYTES 0.2 % (0-5); LYMPHOCYTES 10.4 % (15-50); MCH 28.2 pg (26.0-34.0); MCHC 30.8 g/dL (31.0-37.0); MCV 91.8 fL (80.0-100.0); MEAN PLATELET VOLUME 9.2 fL (7.4-10.4); MONOCYTES 14.3 % (2-11); NEUTROPHILS 70.1 % (40-80); PLATELET COUNT 172 10x3/uL (130-400); RBC 2.55 10x6/uL (4.00-5.40); RDW 20.3 % (11.5-14.5)
[2016-07-05 10:03] LABS: ANION GAP 21.1 mmol/L (8-16); CALCIUM 7.8 mg/dL (8.5-10.1); CARBON DIOXIDE 21.2 mmol/L (21.0-32.0); CREATININE - SERUM 5.8 mg/dL (0.6-1.3)
[2016-07-05 10:05] LABS: POTASSIUM - SERUM 4.3 mmol/L (3.5-5.1)
[2016-07-05 10:06] LABS: HEMOGLOBIN 7.2 g/dL (12-16)
--- NOTE | 2016-07-05 16:08 | NUR ---
WOUND CARE CONSULT: Wound vac dressing intact to left forearm. Plan dressing change on Tuesday. Pt states she had wound on right plantar foot that Dr. Salmeron has been treating. It is nearly healed and approximately 0.1cm x 0.1cm. It is not open anymore. Wound care will continue following.
[2016-07-05 17:08] VITALS: BP 128/78
--- NOTE | 2016-07-05 19:35 | NUR ---
ALERT/AWAKE WATCHING TV. LEFT ARM ELEVATED ON PILLOWS. WOUND VAC TO LEFT ARM WOUND (OLD HERO GRAFT SITE). UPPER ARM HERO GRAFT WITH REDNESS AND SOME SWELLING NOTED. DRSG IS C/D/I. DENIES PAIN OR ANY NEEDS. IV IN R HAND INTACT WITH NS INFUSING AT 10ML/HR. CALL LIGHT AND BEDSIDE TABLE WITH PERSONAL ITEMS IN REACH.
[2016-07-05 21:27] VITALS: BP 153/59
[2016-07-06 01:46] VITALS: BP 156/70
--- NOTE | 2016-07-06 05:45 | NUR ---
ASSISTED TO BSC TO VOID. NO OTHER NEEDS VOICED.
[2016-07-06 06:06] LABS: BASOPHILS 0.6 % (0-2); EOSINOPHILS 6.6 % (0-7); LYMPHOCYTES 11.9 % (15-50); MCH 28.2 pg (26.0-34.0); MCHC 32.2 g/dL (31.0-37.0); MEAN PLATELET VOLUME 8.9 fL (7.4-10.4); MONOCYTES 18.7 % (2-11); NEUTROPHILS 62.2 % (40-80); PLATELET COUNT 143 10x3/uL (130-400); RDW 20.7 % (11.5-14.5); WBC 5.1 10x3/uL (4.8-10.8)
[2016-07-06 06:12] LABS: RBC 3.51 10x6/uL (4.00-5.40)
[2016-07-06 06:13] LABS: HEMATOCRIT 30.7 % (36.0-48.0); HEMOGLOBIN 9.9 g/dL (12-16); MCV 87.5 fL (80.0-100.0)
[2016-07-06 06:24] VITALS: BP 153/75
[2016-07-06 06:27] LABS: CALCIUM 8.3 mg/dL (8.5-10.1); CARBON DIOXIDE 28.5 mmol/L (21.0-32.0); CREATININE - SERUM 3.9 mg/dL (0.6-1.3); POTASSIUM - SERUM 3.5 mmol/L (3.5-5.1); VANCOMYCIN - RANDOM 20.9 ug/mL (10.0-20.0)
[2016-07-06 08:00] VITALS: BP 152/69
[2016-07-06 10:20] LABS: HEPATITIS C ANTIBODY <0.1 (0.0-0.9)
[2016-07-06 11:59] VITALS: BP 149/66
[2016-07-06 15:53] VITALS: BP 152/65
--- NOTE | 2016-07-06 19:46 | NUR ---
ALERT/AWAKE ORIENTED X4. DENIES PAIN OR ANY NEEDS. LEFT ARM ELEVATED ON PILLOWS. WOUND VAC TO LEFT ARM ON OLD HERO GRAFT SITE. NEW HERO GRAFT IN LEFT UPPER ARM WITH SOME SWELLING AND REDNESS NOTED. C/O PAIN WITH MOVEMENT OF THE ARM. HAS CALL LIGHT IN REACH.
--- NOTE | 2016-07-06 20:15 | NUR ---
ADMIN NORCO 7.5MG PO PER REQUEST FOR C/O PAIN AND RESTORIL 30 MG FOR SLEEP. ASSISTED TO BSC TO VOID AND BACK TO BED. REQUESTED LIGHTS OFF AND DOOR CLOSED TO SLEEP.
[2016-07-06 21:07] VITALS: BP 171/68
[2016-07-07 01:38] VITALS: BP 141/62
--- NOTE | 2016-07-07 04:37 | NUR ---
AWAKE. DENIES ANY NEEDS OR DISCOMFORTS. CALL LIGHT IN REACH.
[2016-07-07 04:38] LABS: BASOPHILS 0.4 % (0-2); HEMATOCRIT 29.1 % (36.0-48.0); HEMOGLOBIN 9.1 g/dL (12-16); IMMATURE GRANULOCYTES 0.2 % (0-5); LYMPHOCYTES 16.1 % (15-50); MCH 27.4 pg (26.0-34.0); MCHC 31.3 g/dL (31.0-37.0); MCV 87.7 fL (80.0-100.0); MEAN PLATELET VOLUME 9.1 fL (7.4-10.4); MONOCYTES 18.2 % (2-11); NEUTROPHILS 57.1 % (40-80); PLATELET COUNT 134 10x3/uL (130-400); RBC 3.32 10x6/uL (4.00-5.40); RDW 20.1 % (11.5-14.5); WBC 4.7 10x3/uL (4.8-10.8)
[2016-07-07 05:31] LABS: ANION GAP 14.5 mmol/L (8-16); CALCIUM 8.3 mg/dL (8.5-10.1); CARBON DIOXIDE 26.3 mmol/L (21.0-32.0); CREATININE - SERUM 4.6 mg/dL (0.6-1.3); POTASSIUM - SERUM 3.8 mmol/L (3.5-5.1); VANCOMYCIN - RANDOM 18.2 ug/mL (10.0-20.0)
[2016-07-07 05:32] VITALS: BP 152/62
--- NOTE | 2016-07-07 07:45 | NUR ---
PATIENT IS RESTING QUIETLY WITH HOB UP 45 DEGREES. REPOSITIONED HER TO THE SIDE OF THE BED SO THAT SHE CAN EAT HER BREAKFAST. HER LEFT FOREARM WOUND VAC SUCTION IS INTACT. SHE DENIES UNCONTROLLED PAIN.
[2016-07-07 08:00] VITALS: BP 145/62
--- NOTE | 2016-07-07 09:40 | NUR ---
NORCO 7.5MG GIVEN FOR ANTICIPATED PAIN R/T DRESSING CHANGE.
--- NOTE | 2016-07-07 09:44 | NUR ---
DIALYSIS COORDINATOR: PATHWAYS: Patient will be discharging as an in-center dialysis patient of [facility] on a Tuesday//Tuesday @ 7:30am schedule. Patient needs to arrive at the clinic at 7:15am. ELDON DAS.
--- NOTE | 2016-07-07 09:57 | NUR ---
DIALYSIS COORDINATOR: PATHWAYS: Welcome Letter has been provided. Patient to start in-center @ [facility] on July 09 @ 7:15am. ELDON DAS.
--- NOTE | 2016-07-07 11:08 | NUR ---
Wound care/Wound vac change: Left forearm: 4cm x 11.5cm x 1cm Wound bed is red and beefy with small bloody drainage. No odor. Cleansed and applied silver sponge to wound. Secured with drape. Wound vac settings at -125mmhg mod continuous. Also changed dressing to wounds on upper left arm. Sutures intact no redness edema or odor. Small amount of bloody drainage noted. Cleansed and patted dry. Maxorb AG applied and secured with tegaderm Pt tolerated well.
--- NOTE | 2016-07-07 11:10 | NUR ---
[facility] OFF THE UNIT TO DIALYSIS. HER WOUND VAC DRESSING HAS BEEN CHANGED. SHE WAS GIVEN PAIN MEDICATION PROR TO DRESSING CHANGE.
--- NOTE | 2016-07-07 14:01 | NUR ---
07/07/2016 13:51 DCP: Discharge Planning Wound Vac order signed by Dr. Silva & faxed to Cheri at [facility]. Waiting approval. Rec'd call from Kalpana with [facility] - Patient will go to here in [place] on //Sat @ 0715. CM will follow.
--- NOTE | 2016-07-07 15:12 | NUR ---
Nutrition follow-up: Diet: Renal PO intake ~50% of meals Labs reviewed Wt: 155# Wound VAC in place Will continue to provide food choices and honor food preferences within diet restrictions. RDN following.
--- NOTE | 2016-07-07 15:15 | NUR ---
RECEIVE CALL FROM DIALYSIS NURSE THAT [facility] IS READY TO RETURN TO [facility] FLOOR.
[2016-07-07 15:59] VITALS: BP 140/81
[2016-07-07] MEDS ORDERED: NORCO 7.5/325 T1 TA1 PO (16:13)
--- NOTE | 2016-07-07 16:19 | NUR ---
07/07/2016 16:14 DCP: Discharge Planning Patient Name: NOLAN STOVALL Encounter No: [id number] : 1950 Primary Insurance: MEDICARE A & B Anticipated DC Date: 07-07-2016 Planned Disposition: Home with Home Health External Planned Provider: [facility] follow-up note: Wound Vac approved. DC order rec'd. Notified Tiana @ [facility] of discharge this evening. Patient and family in agreement with discharge plan. No changes to plan. Sejal Petersen
--- NOTE | 2016-07-07 16:30 | NUR ---
07/07/2016 16:26 DCP: Discharge Planning Nursing rec'd call from COLTON Bergman - she has decided to go with [facility]. Spoke with Larissa @ [place] - Patient will go to a halfway bed via ambulance. Nursing to call report to [phone]. DC Med Rec & instructions faxed.
== END 2016-07-07 19:13 | disposition home health service (06) | DRG 252 ==
LOC: D.M2 16:10
PROVIDERS: Internal Medicine; Surgery; ADMIT Internal Medicine Nephrology
PROC: B51W1ZZ Fluoroscopy of Dialysis Shunt/Fistula using Low Osmolar Contrast (ICD-10-PCS; principal; 2016-07-04 09:00)
PROC: 03B80ZZ Excision of Left Brachial Artery, Open Approach (ICD-10-PCS; 2016-07-04 09:00)
PROC: 03180KF Bypass Left Brachial Artery to Lower Arm Vein with Nonautologous Tissue Substitute, Open Approach (ICD-10-PCS; 2016-07-04 09:00)
PROC: 5A1D60Z (ICD-10-PCS; 2016-07-05)
DX: T82.590A Other mechanical complication of surgically created arteriovenous fistula, initial encounter (principal); N18.6 End stage renal disease; I12.0 Hypertensive chronic kidney disease with stage 5 chronic kidney disease or end stage renal disease; Y83.8 Other surgical procedures as the cause of abnormal reaction of the patient, or of later complication, without mention of misadventure at the time of the procedure; M34.9 Systemic sclerosis, unspecified; D64.9 Anemia, unspecified; E83.39 Other disorders of phosphorus metabolism; S91.302A Unspecified open wound, left foot, initial encounter; X58.XXXA Exposure to other specified factors, initial encounter

== ENCOUNTER 2016-07-23 07:30 | Day surgery (SDC) | payer MEDICARE, OTHER ==
[~2016-07-23] VITALS: Ht 167.6 cm; Wt 61.2 kg
[~2016-07-23 07:30] MED LIST changes: +NORCO 7.5/325 T1 TA1 PO
[2016-07-23 08:15] LABS: BASOPHILS 1.4 % (0-2); EOSINOPHILS 5.6 % (0-7); HEMATOCRIT 28.3 % (36.0-48.0); HEMOGLOBIN 8.8 g/dL (12-16); IMMATURE GRANULOCYTES 0.2 % (0-5); LYMPHOCYTES 16.8 % (15-50); MCH 27.3 pg (26.0-34.0); MCHC 31.1 g/dL (31.0-37.0); MCV 87.9 fL (80.0-100.0); MEAN PLATELET VOLUME 8.7 fL (7.4-10.4); PLATELET COUNT 172 10x3/uL (130-400); RBC 3.22 10x6/uL (4.00-5.40); RDW 17.9 % (11.5-14.5); WBC 5.9 10x3/uL (4.8-10.8)
[2016-07-23 08:23] LABS: APTT 31.7 SECONDS (22.8-39.4); INR 1.06 (0.85-1.17); PROTIME 13.7 SECONDS (11.6-15.0)
[2016-07-23 08:25] LABS: ANION GAP 16.8 mmol/L (8-16); CALCIUM 8.7 mg/dL (8.5-10.1); CARBON DIOXIDE 25.6 mmol/L (21.0-32.0); CREATININE - SERUM 3.5 mg/dL (0.6-1.3); POTASSIUM - SERUM 4.4 mmol/L (3.5-5.1)
--- NOTE | 2016-07-23 10:36 | NUR ---
1020-LAB WORK CALLED TO YOSELYN LOPEZ APN. CLEARED FOR SURGERY.
[2016-07-23 10:57] VITALS: Ht 167.6 cm; Wt 61.2 kg
[2016-07-23] MEDS ORDERED: HYDROCODON-ACE1 EAC7 PO (17:15)
--- NOTE | 2016-07-23 19:34 | NUR ---
1800 IV DC WITH CATHER TIP INTACT
== END 2016-07-23 18:30 | disposition home or self-care (01) ==
LOC: D.OPS 07:30
PROVIDERS: Surgery
DX: T82.7XXA Infection and inflammatory reaction due to other cardiac and vascular devices, implants and grafts, initial encounter (principal); T81.32XA Disruption of internal operation (surgical) wound, not elsewhere classified, initial encounter; N18.6 End stage renal disease; Z99.2 Dependence on renal dialysis; M34.9 Systemic sclerosis, unspecified; Z01.810 Encounter for preprocedural cardiovascular examination; Z01.811 Encounter for preprocedural respiratory examination; Z01.812 Encounter for preprocedural laboratory examination

== ENCOUNTER → 2016-08-05 18:22 | Outpatient (CLI) | payer MEDICARE, OTHER ==
[2016-07-23 10:57] VITALS: BMI 21.8
== END | disposition home or self-care (01) ==
LOC: D.LABREF 18:22
DX: N18.6 End stage renal disease (principal)

== ENCOUNTER → 2016-08-20 06:00 | Day surgery (SDC) | payer MEDICARE, OTHER ==
[2016-08-19 14:09] LABS: BASOPHILS 0.4 % (0-2); EOSINOPHILS 3.5 % (0-7); HEMOGLOBIN 10.2 g/dL (12-16); IMMATURE GRANULOCYTES 0.4 % (0-5); LYMPHOCYTES 18.2 % (15-50); MCH 29.2 pg (26.0-34.0); MCHC 31.9 g/dL (31.0-37.0); MCV 91.7 fL (80.0-100.0); MEAN PLATELET VOLUME 9.4 fL (7.4-10.4); MONOCYTES 15.1 % (2-11); NEUTROPHILS 62.4 % (40-80); PLATELET COUNT 139 10x3/uL (130-400); RBC 3.49 10x6/uL (4.00-5.40); RDW 19.7 % (11.5-14.5); WBC 5.7 10x3/uL (4.8-10.8)
[2016-08-19 14:25] LABS: INR 1.05 (0.85-1.17); PROTIME 13.6 SECONDS (11.6-15.0)
[2016-08-19 14:26] LABS: APTT 29.4 SECONDS (22.8-39.4); CALCIUM 8.7 mg/dL (8.5-10.1); CARBON DIOXIDE 29.8 mmol/L (21.0-32.0); CREATININE - SERUM 2.1 mg/dL (0.6-1.3); POTASSIUM - SERUM 3.8 mmol/L (3.5-5.1)
[~2016-08-20] VITALS: Ht 167.6 cm; Wt 60.8 kg
--- NOTE | ~2016-08-20 | OP ---
PATIENT NAME: NOLAN STOVALL MEDICAL RECORD: [id number] :[birth year] LOCATION:[facility] ADMISSION DATE: SURGEON: NAHED WIGGINS MD OPERATION DATE: 08/20/16 SURGEON: Nahed Wiggins MD REFERRING PHYSICIAN: Froy Lion M.D. PREOPERATIVE DIAGNOSIS: End-stage renal disease and dependence upon hemodialysis. Mechanical complication of PTFE AV graft, left upper extremity with infected exposed PTFE AV graft through an area of skin wound dehiscence and skin wound ulceration. POSTOPERATIVE DIAGNOSIS: End-stage renal disease and dependence upon hemodialysis. Mechanical complication of PTFE AV graft, left upper extremity with infected exposed PTFE AV graft through an area of skin wound dehiscence and skin wound ulceration. OPERATION PERFORMED: Open revision without thrombectomy by resection of infected exposed segment of graft and interposition of a jump graft through a new noncontaminated subcutaneous tunnel utilizing 6 millimeter diameter straight Propaten standard wall thickness [facility] PTFE. ANESTHESIA: General per CONTACT LENS BLOCKER AND CUTTER. SURGEON: Nahed Wiggins MD PREOPERATIVE NOTE: The patient is very sweet and well liked, loved, and respected 66-year-old white female on chronic hemodialysis. She suffers from complications of scleroderma. She has been on dialysis for quite a while and has multiple dialysis access failures. She is presently been dialyzing successfully with a left upper extremity HeRo AV graft which has also had several revisions. 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 She unfortunately developed a area of skin wound dehiscence and ulceration exposing underlying PTFE graft. She is brought back to the operating room at this time with plans to resect that exposed portion of graft and replace it with a new portion of PTFE through noninfected keith. PROCEDURE: Under anesthetic in the supine position, the patient is prepped and draped in a sterile manner. I made an elliptical incision and excised the area of skin ulceration and exposed the underlying PTFE graft a distance well above, perhaps an inch above and below the exposed segment. It was circumferentially dissected and controlled with elastic loops. The granado of the tunnel and region of infection were excised. The patient was systemically heparinized with 3000 units of heparin. After an adequate circulation time the graft was clamped above and below and the infected exposed segment excised. The wound was swabbed for aerobic and anaerobic cultures. The segment itself was sent also for cultures. It was labeled that it was for culture and not for any gross or microscopic pathologic examination. I flushed the graft proximally and distally with heparinized saline. Then I chose a new [facility] Propaten 6 millimeter straight standard wall thickness PTFE graft 10 centimeters in length and performed an end-to-end anastomosis to the upper end which was the venous outflow. This was done with continuous running 6-0 Prolene and when completed the graft was once again flushed with heparinized saline and clamped. I used a Impra tunneling device to make a tunnel lateral to the initial one so that the new graft could be placed in noncontaminated tissue. It was brought back to the OPERATIVE REPORT [id number] NOLAN STOVALL lower end of the incision where it was shortened and then anastomosed end-to-end to the arterial limb of the graft again with continuous running 6-0 Prolene. When completed, the clamps were released. Excellent flow was immediately established in the graft. Suture line bleeding was controlled with reversal of her heparin giving her a total of 25 milligrams of protamine. The wound was irrigated repeatedly with Ancef gentamicin solution and electrocautery and direct pressure used for hemostasis. I approximated the upper third and lower third of the wound with interrupted simple 4-0 Prolene sutures. The middle portion of the wound was left open and dressed with a Wound VAC with a small piece of black foam and a negative 125 millimeters of mercury pressure. The graft itself and vascular anastomosis are located sufficiently remotely from the VAC that I felt comfortable with this. The patient was then awakened and taken to the recovery room in stable condition. Blood loss during the procedure was insignificant and not replaced. All sponges, instruments, and needles were accounted for. No drain was used other than the Wound VAC dressing. No specimen was submitted for histopathology. Those specimens were sent for culture. This is a Via Wound VAC. The dressing will need to be changed about three times a week. We know from recent experience that none of the local home health agencies will touch her with a Wound VAC in "proximity to her AV access". Therefore it will be necessary for her either to return here to the hospital outpatient department for our wound care Registered Nurse to do her dressing change or she will need to be referred to the [facility] center. I will be seeing her back in my office Tuesday week, which will be approximately the 17th or 18th of this month. The patient can dialyze with her graft, which by the way in large part is ACUSEAL PTFE. The graft can be accessed anywhere above the incision I made today and above the Wound VAC dressing. CC: [facility]. NAHED WIGGINS MD CC: FROY LION MD [id number] DICTATION DATE: 08/20/16 1400 BEESWAX BLEACHER: DM 08/22/16 1333 [facility] 08/20/16 [facility] [address] [place] [address]
[~2016-08-20 06:00] MED LIST changes: +ZYLOPRIM100 MG PO
[2016-08-20 06:55] VITALS: Ht 167.6 cm; Wt 60.8 kg
--- NOTE | 2016-08-20 09:25 | NUR ---
LAB HAS BEEN NOTIFIED TO DO NOT DO GROSS OR MICROSCOPIC PATHOLOGY ON TISSUE AND TUBE CULTURES DELIVERED.
--- NOTE | 2016-08-20 13:34 | NUR ---
1305 PT ESCORTED OUT BY MYSELF. FRIEND WAITING HER FOR.
--- NOTE | 2016-08-20 13:39 | NUR ---
1300- Visited with pt to discuss vac. Pt states she prefers to go to [facility] wound clinic for dressing changes. (It is closer). She states she will call them on Tuesday morning for an appt. She stated she will return to see Dr. Silva on 08/30. Pt had no questions.
== END | disposition home or self-care (01) ==
LOC: D.OPS 06:00 → D.PAN 08:00
PROVIDERS: Surgery
DX: T82.7XXA Infection and inflammatory reaction due to other cardiac and vascular devices, implants and grafts, initial encounter (principal); T81.31XA Disruption of external operation (surgical) wound, not elsewhere classified, initial encounter; M34.9 Systemic sclerosis, unspecified; N18.6 End stage renal disease; Z99.2 Dependence on renal dialysis; Z01.812 Encounter for preprocedural laboratory examination

== ENCOUNTER 2016-09-29 14:55 | Inpatient (IN) | payer MEDICARE, OTHER ==
[~2016-09-29] VITALS: Ht 167.6 cm; Wt 65.5 kg
[2016-09-29 15:38] VITALS: BP 123/69
[2016-09-29] MEDS ORDERED: LOPRESSOR25 MG PO (15:51)
[2016-09-29] MEDS ORDERED: ZOFRAN8 MG PO (15:54)
[2016-09-29] MEDS ORDERED: CATAPRES0.1 MG PO (15:55)
[2016-09-29 16:01] VITALS: BP 123/69; BMI 22.9
[2016-09-29 16:16] LABS: BASOPHILS 0.2 % (0-2); EOSINOPHILS 0.2 % (0-7); HEMATOCRIT 38.4 % (36.0-48.0); HEMOGLOBIN 12.2 g/dL (12-16); IMMATURE GRANULOCYTES 0.3 % (0-5); LYMPHOCYTES 2.8 % (15-50); MCH 30.3 pg (26.0-34.0); MCHC 31.8 g/dL (31.0-37.0); MCV 95.5 fL (80.0-100.0); MEAN PLATELET VOLUME 9.2 fL (7.4-10.4); MONOCYTES 2.5 % (2-11); PLATELET COUNT 136 10x3/uL (130-400); RBC 4.02 10x6/uL (4.00-5.40); WBC 10.8 10x3/uL (4.8-10.8)
[2016-09-29 16:27] LABS: INR 1.29 (0.85-1.17)
--- NOTE | 2016-09-29 16:28 | NUR ---
PT ARRIVED FROM ADMISSIONS. AWAKE AND ORIENTED. IV STARTED BY Margarita LAMBERT RN. IN [facility]. OR CONSENTS SIGNED. SEE ASSESSMENT FOR FURTHER EVAL.
[2016-09-29 16:45] LABS: ANION GAP 22.6 mmol/L (8-16); CARBON DIOXIDE 19.5 mmol/L (21.0-32.0); CREATININE - SERUM 5.6 mg/dL (0.6-1.3)
[2016-09-29 16:48] LABS: POTASSIUM - SERUM 6.1 mmol/L (3.5-5.1)
--- NOTE | 2016-09-29 16:53 | NUR ---
CRITICAL LAB OF K+ 6.[address] GUTIERREZ.
--- NOTE | 2016-09-29 17:35 | NUR ---
RECEIVED REPORT, WILL ASSUME CARE OF PT, PT SLEEPING, BED IS LOW, SRX2, CALL LIGHT IN REACH, WILL CONTINUE PLAN OF CARE
[2016-09-29 20:02] VITALS: BP 132/64
[2016-09-30 00:35] VITALS: BP 109/63
[2016-09-30 04:19] LABS: APPEARANCE HAZY (CLEAR); BILIRUBIN NEGATIVE (NEGATIVE); COLOR YELLOW (YELLOW); GLUCOSE NEGATIVE (NEGATIVE); KETONE NEGATIVE (NEGATIVE); LEUKOCYTE ESTERASE 1+ (NEGATIVE); NITRITE NEGATIVE (NEGATIVE); PROTEIN 2+ mg/dL (NEGATIVE); SPECIFIC GRAVITY 1.005 (1.005-1.020); UROBILINOGEN NORMAL (NORMAL)
[2016-09-30 04:22] LABS: BACTERIA FEW /hpf (NONE SEEN); EPITHELIAL CELLS 0-5 /hpf (0-5); RED CELLS - URINE 0-5 /hpf (0-5)
--- NOTE | 2016-09-30 04:30 | NUR ---
VEGETABLE SORTER AT BEDSIDE TO OBTAIN VITALS, CALL LIGHT IN REACH. WILL CONTINUE TO MONITOR.
--- NOTE | 2016-09-30 04:55 | NUR ---
ASSESSMENT COMPLETE, SEE FLOWSHEET, PT HAS BEEN NPO SINCE MIDNIGHT, HAS SHOWERED , READY FOR PROCEDURE, WILL CONTINUE TO MONITOR
[2016-09-30 05:38] VITALS: BP 82/49
[2016-09-30 06:05] LABS: ANION GAP 20.6 mmol/L (8-16); CALCIUM 7.7 mg/dL (8.5-10.1); CARBON DIOXIDE 19.2 mmol/L (21.0-32.0); CREATININE - SERUM 6.3 mg/dL (0.6-1.3); POTASSIUM - SERUM 5.8 mmol/L (3.5-5.1)
[2016-09-30 07:19] VITALS: BP 81/50
--- NOTE | 2016-09-30 07:25 | NUR ---
PT GETTING UP TO BATHROOM AT THIS TIME. SURGERY HERE TO GET HER FOR HEMOSPLIT PLACEMENT.
[2016-09-30 09:12] VITALS: BP 104/70
--- NOTE | 2016-09-30 09:16 | NUR ---
PT BACK FROM SURGERY ALERT AND OREINTED LETHARGIC ARROUSES TO VOICE. VS ARE WNL. PT DENIES ANY NEEDS. TRIALYSIS CATH NOTED TO Zack HORTON IS CDI
--- NOTE | 2016-09-30 10:22 | NUR ---
PT STILL SITTING UP IN BED ARROUSES EASILY VS ARE STILL WNL DENIES ANY NEEDS OTHER THAN WATER, GIVEN WILL CONT TO MONITOR
--- NOTE | 2016-09-30 12:10 | NUR ---
PT SITTING UP IN BED WITH SISTER AT BEDSIDE. VS ARE STILL WNL DENIES ANY NEEDS. CONSENTS ARE SIGNED FOR PROCEDURE TOMORROW PLACED ON THE CHART.
--- NOTE | 2016-09-30 13:49 | NUR ---
Dialysis Coordinator: [facility] TTS 2nd shift. Medical records to home unit. ELDON DAS.
[2016-09-30 14:35] VITALS: Ht 167.6 cm; Wt 65.5 kg
--- NOTE | 2016-09-30 15:25 | NUR ---
PT SITTING UP IN BED SLEEPING NO S/S DISTRESS NOTED RR EVEN AND UNLABORED. SISTER AT BEDSIDE WILL CONT TO MONITOR
--- NOTE | 2016-09-30 16:19 | NUR ---
PT SITTING UP IN BED RECEIVING DIALYSIS SLEEPING NO S/S DISTRESS RR EVEN AND UNLABORED WILL CONT TO MONITOR
--- NOTE | 2016-09-30 16:39 | NUR ---
Patient Name: NOLAN STOVALL Admission Status: Elective Accout number: [id number] Admission Date: 09-29-2016 : 1950 Admission Diagnosis: Attending: NEGRO Current LOS: 1 Anticipated DC Date: Planned Disposition: Home Primary Insurance: MEDICARE A & B Discharge Planning Comments: * Is the patient Alert and Oriented? Yes 0 * How many steps to enter\exit or inside your home? RAMP 0 * PCP DR. LION 0 * Pharmacy [facility] [address] 0 * Preadmission Environment Home with Family 0 * ADLs Independent 0 * Equipment Cane Other Walker 0 * Other Equipment [facility] [employer]- HOME DIALYSIS EQUIPMENT AND SUPPLIES 0 * List name and contact numbers for known caregivers / representatives who currently or will assist patient after discharge: KAYLIN CAMPBELL, FRIEND, 0 * Community resources currently utilized Other 0 * Please name any agencies selected above. HOME HEMODIALYSIS, 3 DAYS PER WEEK * Additional services required to return to the preadmission environment? No 0 * Can the patient safely return to the preadmission environment? Yes 0 * Has this patient been hospitalized within the prior 30 days at any hospital? No 0 CM MET WITH PT IN ROOM TO DISCUSS DISCHARGE PLANNING AND NEEDS. PT REPORTS LIVING AT HOME INDEPENDENTLY WITH HER ADULT FRIEND. PT HAS CANE, WALKER AND HOME DIALYSIS EQUIPMENT. PT HAS NO OUTSIDE SERVICES ASSISTING IN THE HOME. CM DISCUSSED AVAILABILITY OF HOME HEALTH, REHAB SERVICES AND MEDICAL EQUIPMENT. PT DENIES DISCHARGE NEEDS, REPORTS HER FRIEND WILL PICK HER UP FOR DISCHARGE HOME. Inspector Assemblies And Installations: Shreyas Felton
--- NOTE | 2016-09-30 18:42 | NUR ---
PT SITTING UP IN BED JUST FINISHED DIALYSIS REQUESTS PAIN PILL GIVEN. REQUESTS CHICKEN NOODLE SOUP GIVEN DENIES OTHER NEEDS
[2016-09-30 19:00] VITALS: BP 145/83
--- NOTE | 2016-09-30 20:00 | NUR ---
PT RESTING IN BED. RESERVE LEFT FOR NONFUNCTIONING AVGRAFT. SURGERY IN AM TO REMOVE PER DR WIGGINS. SALINE LOCK TO RIGHT WRIST. TRIALYSIS TO RIGHT IJ WTH NS @ [facility]. PT VERY SLEEP/TIRED. SEE ASSESSMENT. CPOC.
[2016-10-01] VITALS: BP 96/60
--- NOTE | 2016-10-01 00:31 | NUR ---
IV ABT UP AND INFUSING. PT NOT ASLEEP, BUT VERY DROWSY. LEFT ARM ELEVATED ON PILLOW. CALL LIGHT IN REACH.
--- NOTE | 2016-10-01 03:31 | NUR ---
NPO SINCE MIDNIGHT FOR SURGERY ON LEFT ARM AVG THIS MORNING. IVF INFUSING TO RIGHT IJ TRIALYSIS AT [facility]. PT RESTING WITH NO SIGNS OF DISCOMFORT.
[2016-10-01 04:00] VITALS: BP 115/70
--- NOTE | 2016-10-01 10:08 | NUR ---
ASSESSMENT COMPLETED. READY TO GO TO SURGERY. 02 AT 3 L/M PER NC. RIGHT WRIST SL. TRIALYSIS TO LEFT IJ.. TO SURGERY PER BED
--- NOTE | 2016-10-01 10:45 | NUR ---
RECIEVED BACK FROM RECOVERY ROOM. V/S B/P 114/76, PULSE 72, 97.5. 18 AND O2 AT 100 PER CENT ON 3 L/M. WOUND VAC TO LEFT SHOULDER INTACT. SCDS ON. DENIES ANY NEEDS. FAMILY AT BEDSIDE. SR UP WITH CALL LIGHT IN REACH. WILL MONITOR
[2016-10-01 11:50] LABS: ALBUMIN 2.6 g/dL (3.4-5.0); BILIRUBIN - TOTAL 0.6 mg/dL (0.2-1.3); CALCIUM 7.9 mg/dL (8.5-10.1); PHOSPHOROUS 4.7 mg/dL (2.5-4.9)
[2016-10-01 11:56] VITALS: BP 114/73
[2016-10-01 11:56] LABS: ANION GAP 13.4 mmol/L (8-16); CARBON DIOXIDE 27.7 mmol/L (21.0-32.0); CREATININE - SERUM 3.7 mg/dL (0.6-1.3); POTASSIUM - SERUM 4.1 mmol/L (3.5-5.1)
[2016-10-01 13:51] LABS: BASOPHILS 0.3 % (0-2); EOSINOPHILS 0.5 % (0-7); HEMATOCRIT 33.8 % (36.0-48.0); HEMOGLOBIN 10.5 g/dL (12-16); IMMATURE GRANULOCYTES 0.5 % (0-5); LYMPHOCYTES 5.6 % (15-50); MCH 29.8 pg (26.0-34.0); MCHC 31.1 g/dL (31.0-37.0); MONOCYTES 4.9 % (2-11); NEUTROPHILS 88.2 % (40-80); RBC 3.52 10x6/uL (4.00-5.40); RDW 18.5 % (11.5-14.5)
[2016-10-01 13:55] LABS: PLATELET COUNT 53 10x3/uL (130-400); WBC 16.9 10x3/uL (4.8-10.8)
[2016-10-01 14:17] LABS: PLATELET ESTIMATE DECREASED
[2016-10-01 15:48] VITALS: BP 116/63
--- NOTE | 2016-10-01 16:18 | NUR ---
RESP UL ON . IV PATENT. FAMILY MEMBER AT [facility] NEEDS AT THIS TIME. CALL LIGHT IN REACH. WILL MONITOR.
[2016-10-01 19:00] VITALS: BP 109/60
--- NOTE | 2016-10-01 19:32 | NUR ---
ASSESSMENT DONE. PT A/O X3. ASSISTED PT FROM BSC BACK TO BED. PT REFUSES TO PUT SCD'S BACK ON. WOUND VAC TO PT'S LEFT UPPER ARM WITH OUT LEAKS, AND ARM IS ELEVATED ON PILLOW. PT REMINDED TO REFRAIN FROM USING LEFT ARM TO PULL SELF UP IN BED. TRIALYSIS CATH TO LEFT IJ WITH DRESSING INTACT, NO S/S OF INFECTION NOTED. PT DENIES NEEDS AT THIS TIME. CALL LIGHT WITH IN REACH. WILL CONT. TO MONITOR.
--- NOTE | 2016-10-01 22:57 | NUR ---
PT SLEEPING. EYES CLOSED. HOB ELEVATED. RESP EVEN AND UNLABORED. NO DISTRESS NOTED. CALL LIGHT WITH IN REACH. WILL CONT. TO MONITOR.
--- NOTE | 2016-10-02 00:38 | NUR ---
PT CALLED NURSE INTO ROOM AND C/O BEING "UNCOMFORTABLE." NURSING ASSISTED PT WITH REPOSITIONING AND PLACED PILLOWS UNDER LEFT ARM. NORCO 5/325 GIVEN FOR PAIN AROUND TRIALYSIS SITE. CALL LIGHT WITH IN REACH. WILL CONT. TO MONITOR.
--- NOTE | 2016-10-02 01:40 | NUR ---
PT SLEEPING. APPEARS COMFORTABLE AT THIS TIME. RESP EVEN AND UNLABORED. CALL LIGHT WITH IN REACH. WILL CONT. TO MONITOR.
--- NOTE | 2016-10-02 03:48 | NUR ---
PT SLEEPING. EYES CLOSED, RESP EVEN AND UNLABORED. NO DISTRESS NOTED. CALL LIGHT WITH IN REACH. WILL CONT. TO MONITOR.
[2016-10-02 04:00] VITALS: BP 110/63
--- NOTE | 2016-10-02 06:10 | NUR ---
ASSISTED PT TO BSC. PT WANTS TO "SIT A WHILE" CALL LIGHT AND TOILET PAPER PLACED WITH IN REACH. PT WILL CALL FOR ASSIST WHEN SHE IS FINISHED.
--- NOTE | 2016-10-02 07:16 | NUR ---
AM ROUNDS- PT IN BED, DENIES ANY NEEDS AT THIS TIME. BED LOW AND WHEELS LOCKED, BEDSIDE RAILS X2. RT WRIST SL, RESP EVEN AND UNLARORED ON 2L, WOUND VAC TO LT UPPER ARM. CALL LIGHT IN REACH, NAD NOTED, WILL CONTINUE TO MONITOR.
[2016-10-02 08:22] VITALS: BP 108/68
--- NOTE | 2016-10-02 08:35 | NUR ---
AM MEDS GIVEN AT THIS TIME. PT UP TO SIDE OF BED, DENIES ANY NEEDS AT THIS TIME. CALL LIGHT IN REACH, NAD NOTED, WILL CONTINUE TO MONITOR.
--- NOTE | 2016-10-02 10:03 | NUR ---
PT TRANSFERED TO DIALYSIS VIA BED, NAD NOTED.
[2016-10-02 11:25] LABS: BASOPHILS 0.2 % (0-2); EOSINOPHILS 1.6 % (0-7); HEMATOCRIT 33.3 % (36.0-48.0); HEMOGLOBIN 10.2 g/dL (12-16); IMMATURE GRANULOCYTES 0.2 % (0-5); LYMPHOCYTES 3.9 % (15-50); MCH 29.5 pg (26.0-34.0); MCHC 30.6 g/dL (31.0-37.0); MCV 96.2 fL (80.0-100.0); MEAN PLATELET VOLUME 11.1 fL (7.4-10.4); MONOCYTES 8.6 % (2-11); NEUTROPHILS 85.5 % (40-80); RBC 3.46 10x6/uL (4.00-5.40); RDW 18.5 % (11.5-14.5); WBC 17.9 10x3/uL (4.8-10.8)
[2016-10-02 11:27] LABS: PLATELET COUNT 84 10x3/uL (130-400)
[2016-10-02 11:33] LABS: ALBUMIN 2.6 g/dL (3.4-5.0); ANION GAP 14.5 mmol/L (8-16); BILIRUBIN - TOTAL 0.42 mg/dL (0.2-1.3); CALCIUM 7.7 mg/dL (8.5-10.1); CARBON DIOXIDE 28.1 mmol/L (21.0-32.0); POTASSIUM - SERUM 4.6 mmol/L (3.5-5.1); PROTEIN - SERUM 5.7 g/dL (6.4-8.2)
[2016-10-02 11:34] LABS: CREATININE - SERUM 4.7 mg/dL (0.6-1.3)
--- NOTE | 2016-10-02 11:56 | OP ---
PATIENT NAME: NOLAN PAEZ MEDICAL RECORD: [id number] :[birth year] LOCATION:D. D.2113 ADMISSION DATE:09/29/16 SURGEON: NAHED WIGGINS MD DATE OF OPERATION: 09/30/2016 PATIENT TYPE: Inpatient stay. SURGEON: Nahed Wiggins MD REFERRING PHYSICIAN: Froy Lion MD PREOPERATIVE DIAGNOSES: Infected vascular graft and end-stage renal disease. POSTOPERATIVE DIAGNOSES: Infected vascular graft and end-stage renal disease. ANESTHESIA: General with LMA per ESCALATOR INSTALLER. PREOPERATIVE NOTE: Ms. Paez is a very sweet 66-year-old white female patient with scleroderma and end-stage renal disease. She has been dialyzing for some time now with a left upper extremity AV graft, which has required recent revision and she had problems with wound dehiscence, graft exposure, and graft infection. She has had just completed a course of antibiotic therapy and local care to salvage her AV graft. When she thrombosed it, began to have pain and swelling in the arm and systemic symptoms of graft infection. She today began to have some fluid draining from an old puncture site over the AV graft. She needs dialysis before she can have a major operation and she is brought to the operating room at this time with plans to insert catheter. DESCRIPTION OF PROCEDURE: Under anesthesia, the patient was prepped and draped in sterile manner, prepping both groins and the right neck as it is unknown whether or not the right jugular vein is patent. I examined her with ultrasound and found that the right internal jugular vein, at least above the clavicular head, was patent. I accessed it with micropuncture technique, was able to pass a micropuncture wire into the superior vena cava. This was done under fluoroscopy after the initial ultrasound guidance with image preservation. The site was incised with an 11-blade scalpel. A catheter was inserted over the wire and then a larger wire and dilators were passed under fluoroscopy and lastly a 12-cm long Trialysis catheter was inserted, its tip positioned appropriately in the cavoatrial junction. All 3 lumens of the Trialysis catheter were aspirated and returned blood freely. They were then flushed with saline and then heparin locked, clamped and capped. The catheter was sutured to the skin near the entry site with 2-0 Prolene and a sterile dressing applied. The patient was then awakened with head up positioning and taken to the recovery room. The patient will have dialysis today and will then be n.p.o. after midnight and returned to the operating room tomorrow to I&D the arm and remove the infected graft. TRANSINT:[id number] Voice Confirmation ID: [id number] DOCUMENT ID: [id number] OPERATIVE REPORT [id number] NOLAN PAEZ JAMES MD at 1156 CC: FROY LION MD [id number] DICTATION DATE: 09/30/16 0954 KAYAK MAKER: 09/30/16 1308 ADM IN [facility] [address] [place] [address]
--- NOTE | 2016-10-02 11:56 | OP ---
PATIENT NAME: NOLAN PAEZ MEDICAL RECORD: [id number] :52 LOCATION:D. D.2113 ADMISSION DATE:09/29/16 SURGEON: NAHED WIGGINS MD DATE OF OPERATION: 10/01/2016 REFERRING PHYSICIAN: Froy Lion MD. PREOPERATIVE DIAGNOSES: Sepsis due to infected HeRO PTFE graft in the left upper extremity. POSTOPERATIVE DIAGNOSES: Sepsis due to infected HeRO PTFE graft in the left upper extremity. OPERATION PERFORMED: Removal of HeRO graft from the left arm and removal of the entire venous outflow device and application of wound VAC dressing. PREOPERATIVE NOTE: Ms. Paez is a 66-year-old white female with end-stage renal disease on chronic hemodialysis. Most recently, she has been dialyzing with a left upper extremity HeRO graft, which has recently had extensive revisions and wound complications. She now has an obviously grossly infected PTFE segment and is draining some purulent bloody fluid from an old wound over that graft and has symptoms and signs of sepsis. Yesterday, she was taken to the operating room and I placed a right internal jugular Trialysis acute hemodialysis catheter, which functioned well yesterday and today she has returned to the operating room with plans to remove the graft. Under general anesthetic administered by MINING SUPPORT WORKER via LMA in supine position, the patient was prepped and draped in a sterile manner. Four incisions, each about 5 cm in length, were made over the PTFE graft. The graft was exposed just proximal to the arterial anastomosis, which was doubly clipped and the graft divided. The graft was known to be thrombosed and it was. The venous outflow device was exposed through a medial incision high over the upper chest. A purse string suture of 2-0 Prolene was placed and the device removed and the pursestring suture tied. Another reinforcing [id number] suture was placed and the patient put in the reverse Trendelenburg and excellent hemostasis resulted. The graft was completely removed down to the little stub left on the brachial artery. The wounds were all irrigated with Ancef and gentamicin solution. Hemostasis was obtained with electrocautery and the use of a dry gauze pressure. A wound VAC dressing was applied using a few pieces of white sponge for tunnels and black sponge in the larger wound openings. A IntuiLabI wound VAC pump was applied and negative pressure set at 125 mmHg and a good seal was achieved. The patient was awakened and taken to the recovery room. Blood loss during the operation was probably on the order of 20 cc, none was replaced intraoperatively. All sponges, instruments and needles were accounted for. No drain was used other than the VAC dressing and no surgical specimen was submitted for histopathology. I did send about a 3 inch section of PTFE graft for culture and the rest was discarded, including the venous outflow device. PLAN: The patient will resume her renal diet and the preoperative medications and antibiotics, etc. She will remain in the hospital as an inpatient. She will be followed by Dr. Love, our infectious disease specialist and of course, nephrology. She will need to continue to have dialysis. I hope that she can have dialysis on Tuesday and then I plan to return her to the operating room on Tuesday. At that time, I will do the first wound VAC dressing change OPERATIVE REPORT [id number] WILMANNOLAN Anna and I also plan, assuming that her sepsis is cleared, then I will remove her Trialysis catheter and insert a HemoSplit chronic tunneled dialysis catheter in preparation for her being able to go home. She will not be able to go home until I have closed the most distal incision over the brachial artery as home health will not do wound care and particularly wound VAC dressings over vascular access and vascular anastomosis. TRANSINT:[id number] Voice Confirmation ID: [id number] DOCUMENT ID: [id number] NAHED WIGGINS MD at 1156 CC: FROY LION MD [id number] DICTATION DATE: 10/01/16 1014 SUPERVISOR DRILLING AND SHOOTING: 10/01/16 1439 ADM IN [facility] [address] [place] [address]
[2016-10-02 16:17] VITALS: BP 160/91
[2016-10-02 19:00] VITALS: BP 124/73
--- NOTE | 2016-10-02 19:46 | NUR ---
ASSESSMENT DONE. PT SITTING UP IN BED WATCHING TV. HER FAMILY HAD JUST LEFT. PT A/O. DENIES PAIN. STATES SHE STARTED HALLUCINATING DURING DIALYSIS. BUT STATES THAT HAS RESOLVED. WOUND VAC TO LEFT UPPER ARE WITH OUT LEAKS. LEFT ARM ELEVATED ON PILLOW. PT REFUSES TO WEAR SCD'S AT THIS TIME. DENIES NEEDS. CALL LIGHT WITH IN REACH. WILL CONT. TO MONITOR.
--- NOTE | 2016-10-02 21:45 | NUR ---
PT SLEEPING. APPEARS COMFORTABLE. NO DISTRESS NOTED. RESP EVEN AND UNLABORED. LEFT UPPER EXTREMITY ELEVATED ON PILLOW. HOB ELEVATED. CALL LIGHT WITH IN REACH. WILL CONT. TO MONITOR.
[2016-10-03] VITALS: BP 166/110
--- NOTE | 2016-10-03 00:09 | NUR ---
ASSISTED PT TO BSC WHERE PT WAS ABLE TO URINATE 200ML OF DARK YELLOW URINE. THEN, ASSISTED PT BACK TO BED AND ASSITED PT WITH REPOSITIONING. PT DENIES WANTS OR NEEDS AT THIS TIME. CALL LIGHT WITH IN REACH. WILL CONT. TO MONITOR.
--- NOTE | 2016-10-03 02:32 | NUR ---
PT SLEEPING. APPEARS COMFORTABLE. NO DISTRESS NOTED. CALL LIGHT WITH IN REACH. WILL CONT. TO MONITOR.
[2016-10-03 04:00] VITALS: BP 149/91
--- NOTE | 2016-10-03 04:30 | NUR ---
ASSISTED PT TO BSC. PT DISORIENTED BUT AWARE OF PLACE AND SITUATION. NO DISTRESS NOTED. CALL LIGHT WITH IN REACH. WOUND VAC WITHOUT LEAKS. LT ARM ELEVATED ON PILLOW. WILL CONT. TO MONITOR.
--- NOTE | 2016-10-03 05:54 | NUR ---
PT SLEEPING. APPEARS COMFORTABLE.NO DISTRESS NOTED. RESP EVEN AND UNLABORED. CALL LIGHT WITH IN REACH. WOUND VAC WITH OUT LEAKS. LEFT ARM ELEVATED ON PILLOW. WILL CONT. TO MONITOR.
[2016-10-03 06:53] LABS: BASOPHILS 0.3 % (0-2); EOSINOPHILS 2.5 % (0-7); HEMATOCRIT 29.8 % (36.0-48.0); HEMOGLOBIN 9.4 g/dL (12-16); IMMATURE GRANULOCYTES 0.5 % (0-5); LYMPHOCYTES 9.2 % (15-50); MCHC 31.5 g/dL (31.0-37.0); MCV 95.2 fL (80.0-100.0); MEAN PLATELET VOLUME 11.1 fL (7.4-10.4); MONOCYTES 7.8 % (2-11); NEUTROPHILS 79.7 % (40-80); PLATELET COUNT 82 10x3/uL (130-400); RBC 3.13 10x6/uL (4.00-5.40); RDW 17.9 % (11.5-14.5)
[2016-10-03 06:54] LABS: WBC 11.7 10x3/uL (4.8-10.8)
--- NOTE | 2016-10-03 07:05 | NUR ---
AM ROUNDS- PT IN BED, DENIES ANY NEEDS AT THIS TIME. BED LOW AND WHEELS LOCKED, BEDSIDE RAILS X2. RESP EVEN AND UNLABORED ON 3L O2 100% RT WRIST IV SL. WOUND VAC TO LEFT UPPER ARM INTACT. CALL LIGHT IN REACH, NAD NOTED, WILL CONTINUE TO MONITOR.
[2016-10-03 07:11] LABS: ALBUMIN 2.3 g/dL (3.4-5.0); BILIRUBIN - TOTAL 0.41 mg/dL (0.2-1.3); CALCIUM 7.7 mg/dL (8.5-10.1); CARBON DIOXIDE 32.3 mmol/L (21.0-32.0); PROTEIN - SERUM 5.8 g/dL (6.4-8.2)
[2016-10-03 07:13] LABS: ANION GAP 8.4 mmol/L (8-16); CREATININE - SERUM 3.1 mg/dL (0.6-1.3); POTASSIUM - SERUM 3.7 mmol/L (3.5-5.1)
[2016-10-03 07:30] VITALS: BP 125/76
--- NOTE | 2016-10-03 08:41 | NUR ---
AM MEDS GIVEN AT THIS TIME. PT IN BED, TALKING ON THE PHONE, DENIES ANY NEEDS AT THIS TIME. CALL LIGHT IN REACH, NAD NOTED, WILL CONTINUE TO MONITOR.
--- NOTE | 2016-10-03 10:32 | NUR ---
SAIL FINISHER MACHINE AT BEDSIDE, GIVEN PT A BED BATH. PT DENIES ANY NEEDS AT THIS TIME. CALL LIGHT IN REACH, NAD NOTED, WILL CONTINUE TO MONITOR.
[2016-10-03 11:49] VITALS: BP 132/76
[2016-10-03 15:25] VITALS: BP 137/62
--- NOTE | 2016-10-03 19:00 | NUR ---
REPORT RECEIVED FROM OFF GOING NURSE. PT IN BED. ALERT AND ORIENTED X4. IN A PLEASENT MOOD. LEFT ARM RESERVED PER ORDERS. WOUND VAC NOTED TO LUE NEAR THE AXILLA. DRESSING C/D/I. O2 AT 2L VIA NC. SMALL RED DOTS NOTED TO FACE. SKIN ON THE HARD TIGHT. PT EXPLAINED THAT SHE HAD A RECENT DIAGNOSIS OF SCLERODERMA. NO REYNAUDS SYNDROME NOTED. DENIES HEART BURN. RIGHT WRIST HAS AN IV THAT IS SL. DRESSING C/D/I. FLUSHS WELL WITH NO EDEMA/REDDNESS AND DENIES PAIN. RIGHT IJ TRIALISSIS NOTED. DRESSING C/D/I. NO NEEDS AT THIS TIME. BREATHING NORMAL AND UNLABORED. CALL LIGHT IN REACH. WILL CONT POC.
[2016-10-03 20:00] VITALS: BP 142/72
--- NOTE | 2016-10-03 23:35 | NUR ---
PT IN BED RESTING WITH EYES CLOSED WITH 0 S/SX OF DISTRESS/DISCOMFORT NOTED. BREATHING NORMAL AND UNLABORED. CALL LIGHT IN REACH. WILL CONT POC.
[2016-10-04 01:15] VITALS: BP 129/76
--- NOTE | 2016-10-04 01:45 | NUR ---
C/O HEADACHE. PRN TYLENOL GIVEN. WILL REASSESS
--- NOTE | 2016-10-04 02:35 | NUR ---
PT STATED FORBES FEELS BETTER.
--- NOTE | 2016-10-04 04:25 | NUR ---
USED CALL LIGHT TO CALL FOR ASSISTANCE TO BSC. X1 ASSISTANCE TO BSC. ABLE TO PREFORM SELF PERICARE. 250ML OF CLEAR YELLOW URINE NOTED. ASSISTED BACK TO BED. WILL CONT POC.
[2016-10-04 04:30] VITALS: BP 147/87
[2016-10-04 06:52] LABS: BASOPHILS 0.2 % (0-2); EOSINOPHILS 2.3 % (0-7); HEMATOCRIT 30.8 % (36.0-48.0); HEMOGLOBIN 9.4 g/dL (12-16); IMMATURE GRANULOCYTES 0.7 % (0-5); LYMPHOCYTES 7.6 % (15-50); MCH 29.4 pg (26.0-34.0); MCHC 30.5 g/dL (31.0-37.0); MCV 96.3 fL (80.0-100.0); MEAN PLATELET VOLUME 10.7 fL (7.4-10.4); MONOCYTES 18.6 % (2-11); NEUTROPHILS 70.6 % (40-80); PLATELET COUNT 100 10x3/uL (130-400); RDW 17.8 % (11.5-14.5); WBC 9.2 10x3/uL (4.8-10.8)
[2016-10-04 07:09] LABS: ALBUMIN 2.5 g/dL (3.4-5.0); ANION GAP 11.7 mmol/L (8-16); BILIRUBIN - TOTAL 0.45 mg/dL (0.2-1.3); CALCIUM 7.8 mg/dL (8.5-10.1); CARBON DIOXIDE 30.2 mmol/L (21.0-32.0); POTASSIUM - SERUM 3.9 mmol/L (3.5-5.1); PROTEIN - SERUM 6.4 g/dL (6.4-8.2)
[2016-10-04 07:10] LABS: CREATININE - SERUM 4.4 mg/dL (0.6-1.3); PHOSPHOROUS 4.7 mg/dL (2.5-4.9)
--- NOTE | 2016-10-04 07:45 | NUR ---
AM ROUNDS COMPLETED. INTRODUCED MYSELF TO PT PRIMARY RN FOR TODAYS SHIFT. PT RESTING QUIETLY AND DENIES ANY CURRENT NEEDS. CL IN REACH, BED IN LOWEST, SIDE RAILS X2 AND BUILT IN BED ALARM ON. WILL CPOC.
[2016-10-04 10:31] VITALS: BP 200/89
--- NOTE | 2016-10-04 11:46 | NUR ---
PT RESTING WITH FAMILY AT BEDSIDE. PT GOING TO TRY TO EAT SOME LUNCH. NO MORE THRUSH IS NOTED BUT HER TONGUE IS STILL SWOLLEN PER PT, HOWEVER I DIDNT NOTICE IT. PT WANTS HER DIET ADVANCED WILL NOTIFY DOCTOR AND TRY TO ADVANCE IT. PT DENIES ANY CURRENT PAIN OR FURTHER NEEDS. CL IN REACH, BED IN LOWEST, SIDE RAILS X2. WILL CPOC.
[2016-10-04 12:00] VITALS: BP 157/90
--- NOTE | 2016-10-04 16:27 | NUR ---
CALLED RENAL AOC DIRECTOR COMBAT OPERATIONS OFFICER TO FIND OUT IF PT WILL HAVE DIALYSIS TODAY. STATED IDEALLY SHE WILL NEED IT TODAY SINCE HER PROCEDURES WILL BE TOMORROW. RENAL AOC DIRECTOR COMBAT OPERATIONS OFFICER STATED SHE WILL ADD HER TO SCHEDULE AND TRY TO HAVE HER DONE TODAY. NO FURTHER NEEDS AT THIS TIME. WILL CTM.
--- NOTE | 2016-10-04 17:25 | NUR ---
CONSENTS OBTAINED AND PLACED IN CHART FOR SX TOMORROW WITH . PT IS TO BE NPO AFTER MIDNIGHT AND VERBALIZED UNDERSTANDING. PT SITTING UP READY TO EAT DINNER. DENIES ANY CURRENT PAIN OR NEEDS AT THIS TIME. CL IN REACH, BED IN LOWEST, SIDE RAILS X2. WILL CPOC.
[2016-10-04 17:43] VITALS: BP 184/99
--- NOTE | 2016-10-04 19:43 | NUR ---
RECEIVED REPORT, WILL ASSUME CARE OF PT, PT IS ALERT & ORINTATED, DENIES ANY NEEDS AT THIS TIME, BED IS LOW, SRX2, CALL LIGHT IN REACH, WILL CONTINUE PLAN OF CARE
[2016-10-04 20:00] VITALS: BP 146/86
--- NOTE | 2016-10-05 04:12 | NUR ---
PT RESTING IN BED WITH NO DISTRESS. NPO FOR AM SURGERY. CPOC.
--- NOTE | 2016-10-05 04:57 | NUR ---
ASSESSMENT COMPLETE, SEE FLOWSHEET, ASSISTED PT TO BEDSIDE COMMODE, COLLECTED STOOL SAMPLE, BED IS LOW, SRX2, CALL LIGHT IN REACH, WILL CONTINUE TO MONITOR
[2016-10-05 05:11] VITALS: BP 143/89
[2016-10-05 06:13] LABS: HEMATOCRIT 28.2 % (36.0-48.0); HEMOGLOBIN 8.9 g/dL (12-16); MCH 29.7 pg (26.0-34.0); MCHC 31.6 g/dL (31.0-37.0); MEAN PLATELET VOLUME 11.1 fL (7.4-10.4); RDW 17.4 % (11.5-14.5); WBC 9.8 10x3/uL (4.8-10.8)
[2016-10-05 06:18] LABS: PLATELET COUNT 128 10x3/uL (130-400)
[2016-10-05 06:28] LABS: ALBUMIN 2.3 g/dL (3.4-5.0); ANION GAP 13.8 mmol/L (8-16); BILIRUBIN - TOTAL 0.48 mg/dL (0.2-1.3); CALCIUM 7.8 mg/dL (8.5-10.1); CARBON DIOXIDE 26.4 mmol/L (21.0-32.0); CREATININE - SERUM 5.1 mg/dL (0.6-1.3); POTASSIUM - SERUM 4.2 mmol/L (3.5-5.1)
[2016-10-05 07:23] LABS: BASOPHILS 1 % (0-2); EOSINOPHILS 1 % (0-7); LYMPHOCYTES 14 % (15-50); MONOCYTES 15 % (2-11); NEUTROPHILS 65 % (40-80)
[2016-10-05 07:24] LABS: PLATELET ESTIMATE NORMAL
--- NOTE | 2016-10-05 08:29 | NUR ---
0730- AM ROUNDING- RECEIVED REPORT FROM CAPSULE MAKER NURSE ESTHER. PT IS CURRENTLY SITTING UP IN BED WITH EYES OPEN RESTING. PT DENIES ANY PAIN/DISCOMFORT AT THIS CURRENT TIME. NPO CURRENTLY FOR PROCEDURE TODAY. CONSENTS ARE SIGNED AND IN CHART. RIGHT TRIALYSIS SEEN THAT IS SALINE LOCKED. ON 02 AT 2L VIA NC. NO MONITOR. RESERVE LEFT ARM FOR AVF, WOUND WITH WOUND VAC HOOKED TO SITE THAT IS CLEAN, DRY, AND INTACT. ASSISTED PT TO BEDSIDE COMMODE. WILL CONTINUE TO MONITOR AND CONTINUE WITH PLAN OF CARE.
[2016-10-05 09:19] VITALS: BP 157/90
--- NOTE | 2016-10-05 09:40 | NUR ---
PT TO PROCEDURE VIA BED.
--- NOTE | 2016-10-05 11:53 | NUR ---
SPOKE WITH YOSELYN LOPEZ NP FOR RENAL REGARDING DR. MAHAJAN NURSING MESSAGE TO INFORM DR. LION THAT PT IS COMING BACK FROM OR. YOSELYN LOPEZ NP NOTIFIED.
--- NOTE | 2016-10-05 11:58 | NUR ---
RECEIVED REPORT FROM ZACKARY IN OR. AWAITING PT ARRIVAL.
[2016-10-05 12:14] VITALS: BP 160/86
--- NOTE | 2016-10-05 12:16 | NUR ---
RECEIVED PT VIA BED FROM CHAPO RAYMUNDO IN OR. PT IS IS AWAKE AND LETHARGIC. VITAL SIGNS STARTED PER PROTOCOL. CLEAN DRY, AND INTACT DRESSING SEEN OVER HEMOSPLIT TO RIGHT SIDE OF CHEST. CLEAN, DRY, AND INTACT WOUND VAC DRESSING HOOKED TO WOUND VAC SEEN TO LEFT UPPER ARM. NO NEED AT CURRENT TIME. WILL CONTINUE TO MONITOR.
--- NOTE | 2016-10-05 13:12 | NUR ---
Patient Name: NOLAN STOVALL Encounter No: [id number] : 1950 Primary Insurance: MEDICARE A & B Anticipated DC Date: 10-06-2016 Planned Disposition: Home with Home Health External Planned Provider: [facility] DCP follow-up note: CM RECEIVED HOME HEALTH ORDER AND ORDER FOR HOME WOUND VAC. CM MET WITH PT IN ROOM, DISCUSSED DISCHARGE PLANNING AND NEEDS. PT REPORTS PLAN TO DISCHARGE HOME, HAS NEVER RECEIVED ANY SERVICES AT [facility] AND WOULD LIKE TO USE [facility] FOR WOUND VAC DRESSING CHANGES. PT HAS NO PREFERENCE ON PROVIDER FOR WOUND VAC. CHOICE SIGNED FOR [facility]. IMPORTANT MESSAGE FROM MEDICARE PROVIDED AND EXPLAINED. CM CALLED [facility], SPOKE TO CHASIDY AT [phone], NOTIFIED OF REFERRAL FOR HOME WOUND VAC. CM FAXED REFERRAL TO [facility] AT [phone]. CM CALLED ANISHA AT [employer] [facility], , PROVIDED REFERRAL INFORMATION, [facility] WILL ACCEPT PT FOR WOUND VAC CHANGES AT HOME. CM FAXED REFERRAL TO [facility] AT [phone]. [facility] REQUIRES WOUND MEASUREMENTS. CM TO FAX WOUND MEASUREMENTS TO [facility] AT [phone]. FOR DISCHARGE HOME, NOTIFY [facility] AT [phone], FAX DISCHARGE INFORMATION TO [facility] AT [phone]. Shreyas Felton, CASE MANAGEMENT
--- NOTE | 2016-10-05 15:05 | NUR ---
1400- PT TO DIALYSIS VIA BED.
[2016-10-05 16:28] VITALS: BP 160/86
--- NOTE | 2016-10-05 18:05 | NUR ---
PT IS STILL IN DIALYSIS. AWAITING DIALYSIS TO CALL TO COME GET PT.
--- NOTE | 2016-10-05 18:48 | NUR ---
PT BACK FROM DIALYIS VIA BED. PT HAS NOT EATEN DINNER YET, DIETRY TOOK TRAY AWAY. WILL GET PT SANDWICH. NO NEED AT CURRENT TIME. PLUGGED PTS PHONE IN REQUESTED AND PLACED CALL LIGHT IN REACH. WILL CONTINUE TO MONITOR.
--- NOTE | 2016-10-05 19:56 | NUR ---
PT IN BED WITH HOB UP FOR COMFORT. WATCHING TV. UP WITH ASSIT. O2 @ 2L VIA N/C. RIGHT HAND 22 GAUGE SALINE LOC. LEFT ARM WOUND VAC. RIGHT CHEST HEMOSPLIT. ALERT & ORIENTED. DIALYSIS ., ., SAT. BED IN LOWEST POSITION AND CALL LIGHT WITHIN REACH.
[2016-10-05 20:00] VITALS: BP 169/102
--- NOTE | 2016-10-05 21:30 | NUR ---
PT STATES SHE THINKS HE WOUND VAC IS LEAKING. REENFORCED WITH TEGADERM AND CHECKED WOUND VAC AND IT SAID NO LEAKAGE. ERIKA COWAN LOOKED AT THE DRESSING AND WOUND VAC AND STATED THAT IT LOOKS GOOD AND THAT IF IT WAS LEAKING THE MACHINE WOULD BE BEEPING.
[2016-10-06 01:10] VITALS: BP 161/101
--- NOTE | 2016-10-06 04:23 | NUR ---
RESTING WITH EYES CLOSED, RESPERATIONS EVEN, NO S/S DISTRESS NOTED.
[2016-10-06 05:27] LABS: BASOPHILS 0.6 % (0-2); EOSINOPHILS 2.7 % (0-7); HEMATOCRIT 30.5 % (36.0-48.0); HEMOGLOBIN 9.5 g/dL (12-16); IMMATURE GRANULOCYTES 5.7 % (0-5); LYMPHOCYTES 10.2 % (15-50); MCH 29.4 pg (26.0-34.0); MCHC 31.1 g/dL (31.0-37.0); MCV 94.4 fL (80.0-100.0); MEAN PLATELET VOLUME 10.5 fL (7.4-10.4); NEUTROPHILS 62.8 % (40-80); RBC 3.23 10x6/uL (4.00-5.40); RDW 17.1 % (11.5-14.5); WBC 9.8 10x3/uL (4.8-10.8)
[2016-10-06 05:37] LABS: PLATELET COUNT 164 10x3/uL (130-400)
[2016-10-06 05:57] LABS: ALBUMIN 2.4 g/dL (3.4-5.0); ANION GAP 11.1 mmol/L (8-16); BILIRUBIN - TOTAL 0.5 mg/dL (0.2-1.3); CALCIUM 7.9 mg/dL (8.5-10.1); CARBON DIOXIDE 31.8 mmol/L (21.0-32.0); POTASSIUM - SERUM 3.9 mmol/L (3.5-5.1); PROTEIN - SERUM 6.4 g/dL (6.4-8.2)
[2016-10-06 06:02] LABS: PHOSPHOROUS 3.4 mg/dL (2.5-4.9)
[2016-10-06 06:03] LABS: CREATININE - SERUM 3.2 mg/dL (0.6-1.3)
--- NOTE | 2016-10-06 08:11 | NUR ---
0730- AM ROUNDING- RECEIVED REPORT FROM DIE ENGRAVING SUPERVISOR NURSE SHRUTHI. PT IS CURRENTLY SITTING UP IN BED WITH EYES CLOSED RESTING. PT WOKE AND STATES SHE NEEDS TO USE BEDSIDE COMMODE. ASSISTED PT TO BEDSIDE COMMODE. ON 02 AT 2L VIA NC. NO MONITOR. IV SEEN TO RIGHT HAND THAT IS CURRENTLY SALINE LOCKED. RESERVE LEFT ARM. CLEAN, DRY, AND INTACT DRESSING SEEN HOOKED UP TO WOUND VAC TO LEFT UPPER ARM. RIGHT CHEST HEMOSPLIT SEEN FOR DIALYSIS. NO NEED AT CURRENT TIME. PT AWARE TO USE CALL LIGHT WHEN FINISHED SO STAFF CAN ASSIST PT BACK TO BED. WILL CONTINUE TO MONITOR AND CONTINUE WITH PLAN OF CARE.
[2016-10-06 08:19] LABS: HEPATITIS C ANTIBODY <0.1 (0.0-0.9)
[2016-10-06 08:32] VITALS: BP 153/85
[2016-10-06 11:59] VITALS: BP 161/92
--- NOTE | 2016-10-06 13:09 | NUR ---
Patient Name: NOLAN STOVALL Encounter No: [id number] : 1950 Primary Insurance: MEDICARE A & B Anticipated DC Date: 10-06-2016 Planned Disposition: INPATIENT REHAB External Planned Provider: [facility] DCP follow-up note: FEI CALLED DR. WIGGINS'S OFFICE SPOKE TO NURSE MIRANDA, EXPLAINED THAT [facility] REQUIRES WOUND MEASUREMENTS AND REQUESTED DOCTOR SIGNATURE ON WOUND VAC PRESCRIPTION. CM FAXED PRESCRIPTION TO DR. LOPEZ' OFFICE, LATER RECEIVED SIGNED VAC PRESCRIPTION AND WOUND MEASUREMENTS. CM CALLED BERNARDO OF [facility], , [place]T [phone], PROVIDED WOUND MEASUREMENTS AND FAXED PRESCRIPTION TO [facility] AT [phone]. CM SPOKE TO PT AND HER FRIEND IN ROOM, PT REPORTS WORKING WITH THERAPY THIS MORNING AND FEELS WEAK AND WOULD LIKE REHAB AT [facility] INPATIENT REHAB BEFORE GOING HOME WITH HOME HEALTH. CM SPOKE TO DR. WATSON, OBTAINED ORDER FOR INPATIENT REHAB PRESCREENING. IF PT GOES TO INPATIENT REHAB, NOTIFY BERNARDO OF [facility], , [place]T [phone], WHO WILL PUT HOME VAC ORDER ON HOLD UNTIL READY TO DISCHARGE HOME. IF PT GOES TO INPATIENT REHAB, NOTIFY [facility] AT [phone]. CM WAITING PRESCREEN COMPLETION AND ADMISSION DETERMINATION FROM [facility]PAT[facility]. Shreyas Felton, CASE MANAGEMENT
--- NOTE | 2016-10-06 13:39 | NUR ---
NOTE SEEN PER DR. WATSON TO "DO BLADDER SCAN PRN". PT HAS BEEN VOIDING REGULARLY ON SHIFT.
--- NOTE | 2016-10-06 14:59 | NUR ---
THIS NURSE DID BLADDER SCAN ON PT WITH 383CC OF URINE PER BLADDER SCAN. PT HAS VOIDED 800CC OF URINE TODAY ON SHIFT.
--- NOTE | 2016-10-06 14:59 | NUR ---
REHAB PRESCREENING Rehab referral received and chart reviewed. Ms. Paez certainly has a rehab diagnosis and would be a good candidate. Rehab will interview Ms. Paez to determine if she meets admission criteria. Thank you for this referral! Nancy Napier, ANIMAL PATHOLOGIST Rehab Security Manager
--- NOTE | 2016-10-06 15:05 | NUR ---
Nutrition follow-up: Diet: Renal PO intake ~25% average of meals Labs reviewed Wt: 144# RDN will order Nepro with meals. Following.
[2016-10-06 15:24] VITALS: BP 170/98
--- NOTE | 2016-10-06 18:49 | NUR ---
PT IS CURRENTLY SITTING UP IN BED WITH EYES OPEN RESTING. PT DENIES ANY NEED AT CURRENT TIME. WILL CONTINUE TO MONITOR.
[2016-10-06 20:00] VITALS: BP 163/90
--- NOTE | 2016-10-06 20:49 | NUR ---
Received patient in bed, awake, alert and oriented x 4. Oxygen on @2L/min, dressing to left upper arm C/D/I with transparent film covering and wound vac is on. Right chest hemesplit in place. States she has had nine surgeries since February, states she believes her body was rejecting the "rubber hose". Reports pain level at '0' but somewhat depressed. Spoke of past stressors with jose briefly. Has strong fred for support, prayed with patient on her request. PIV in right hand is SL. Did complain of hallucinating after recieving her IVPB antibiotics. Mind clear now. Talked of her disease of scleroderma that was diagnosed in October 2009 and then diagnosed with ESRD in November of 2009. Emotional support given. Respirations unlabored on oxygen.
--- NOTE | 2016-10-06 21:03 | OP ---
PATIENT NAME: NOLAN PAEZ MEDICAL RECORD: [id number] :[birth year] LOCATION:D. D.2113 ADMISSION DATE:09/29/16 SURGEON: NAHED WIGGINS MD DATE OF OPERATION: 10/05/2016 REFERRING PHYSICIAN: Froy Lion MD. PREOPERATIVE DIAGNOSES: End-stage renal disease and dependence on hemodialysis and Gram-negative septicemia secondary to infected HeRO dialysis AV graft. Now status post removal of infected graft and placement of a right internal jugular Trialysis acute hemodialysis catheter. POSTOPERATIVE DIAGNOSES: End-stage renal disease and dependence on hemodialysis and Gram-negative septicemia secondary to infected HeRO dialysis AV graft. Now status post removal of infected graft and placement of a right internal jugular Trialysis acute hemodialysis catheter. OPERATIONS PERFORMED: Insertion of a right internal jugular HemoSplit tunneled dialysis catheter under fluoroscopy and delayed primary closure of 2 wounds over the right shoulder and deltopectoral groove totaling approximately 15 cm in length, followed by application of wound VAC dressing to remaining 3 open wounds on the left arm. SURGEON: Nahed Wiggins MD. ANESTHESIA: General with LMA per METAL TANK ERECTOR. PREOPERATIVE NOTE: Ms. Paez, a 66-year-old white female patient, is improving after being terribly sick with Enterococcus cloacae Gram-negative bacteremia due to infected HeRO graft. I removed the HeRO graft last week and placed a Trialysis catheter and I dressed the open wounds from the HeRO removal with a wound VAC. She has returned to the operating room today on Tuesday to place a tunneled catheter as I believe her bacteremia is now under control and we will change the wound VAC dressing for the first time. Under general anesthesia in supine position, the patient was prepped and draped in a sterile manner and the Trialysis catheter was removed over wire under fluoroscopy. That incision site was irrigated with antibiotic solution, Ancef and gentamicin. The incision was lengthened. An incision was made beneath the clavicle and a new 19-cm long HemoSplit catheter pulled through that incision in a subcutaneous tunnel up to the neck incision over the guidewires. Under fluoroscopy, dilators were passed and lastly, a dilator peel-away introducer. The HemoSplit was then inserted through the peel-away introducer under fluoroscopy and it was then shown to extend down to about the level of the diaphragm and the right atrium or cavoatrial junction. There was no kinking and no complications visible. The catheter was accessed. Both lumens returned blood very easily. They were then flushed with saline and lastly with Hep-Lock solution 100 units per cc clamped and capped. The catheter was sutured to the skin with 2-0 Prolene. The cervical wound closed with interrupted inverted 3-0 Vicryl and Dermabond glue. A sterile dressing was applied including a chlorhexidine patch to the exit site. The arm and wound VAC dressing were then exposed and the wound VAC removed and the arm prepped with Betadine. The 2 incisions closest to the clavicle and deltopectoral groove were quite clean and I went ahead and closed these as a OPERATIVE REPORT [id number] NOLAN PAEZ delayed primary closure approximating skin and subcutaneous tissues in a single layer with fairly widely spaced simple 3-0 Vicryl sutures. The other 3 wounds were irrigated and then dressed with black sponge and a wound VAC. I placed some Adaptic over the sutured wound closure and put a wound VAC dressing over that. The wound VAC was attached to suction and a good raisin was achieved. There were no leaks and subsequently then the patient was awakened and taken to the recovery room in stable condition. Blood loss was about 5 cc, none was replaced. All sponges, instruments, needles, etc. were accounted for. No specimen was submitted for histopathology nor any cultures today. PLAN: We will continue the patient on her present in-hospital treatment with antibiotics and nursing care. The wound VAC dressing will now be changed by the business analysis specialist here in the hospital Tuesday, Tuesday, Tuesday and we will see if we can make arrangements for Ms. Paez to be discharged to home, hopefully with home health taking care of the wound VAC with 3 times a week dressing changes. TRANSINT:[id number] Voice Confirmation ID: [id number] DOCUMENT ID: [id number] NAHED WIGGINS MD at 2103 CC: FROY LION MD [id number] DICTATION DATE: 10/05/16 1201 TALENT SOURCING SPECIALIST: 10/05/16 1349 ADM IN [address] [id number] [place] [address]
--- NOTE | 2016-10-06 22:10 | NUR ---
Continues to be in no distress, denies pain or discomfort.
--- NOTE | 2016-10-06 23:13 | NUR ---
Given Restoril PRN on request for insomnia. Will monitor for effectiveness.
--- NOTE | 2016-10-07 03:55 | NUR ---
In bed with eyes closed, deemed to be sleeping, respirations easy and regular. PRN Restoril deemed effective.
--- NOTE | 2016-10-07 05:01 | NUR ---
Complains of frontal headache, given Tylenol 650mg po PRN on request. Will monitor for effectiveness.
[2016-10-07 05:11] VITALS: BP 164/82
[2016-10-07 05:22] LABS: BASOPHILS 0.5 % (0-2); HEMATOCRIT 29.7 % (36.0-48.0); HEMOGLOBIN 9.5 g/dL (12-16); IMMATURE GRANULOCYTES 4.6 % (0-5); LYMPHOCYTES 9.7 % (15-50); MCH 29.9 pg (26.0-34.0); MCV 93.4 fL (80.0-100.0); MEAN PLATELET VOLUME 9.8 fL (7.4-10.4); MONOCYTES 11.9 % (2-11); NEUTROPHILS 70.3 % (40-80); PLATELET COUNT 181 10x3/uL (130-400); RBC 3.18 10x6/uL (4.00-5.40)
[2016-10-07 06:07] LABS: ALBUMIN 2.4 g/dL (3.4-5.0); ANION GAP 11.8 mmol/L (8-16); BILIRUBIN - TOTAL 0.5 mg/dL (0.2-1.3); CARBON DIOXIDE 27.8 mmol/L (21.0-32.0); CREATININE - SERUM 4.4 mg/dL (0.6-1.3); POTASSIUM - SERUM 3.6 mmol/L (3.5-5.1); PROTEIN - SERUM 6.3 g/dL (6.4-8.2)
--- NOTE | 2016-10-07 07:00 | NUR ---
ASSESSMENT PER FLOWSHEET. NO CO AT TIME.
[2016-10-07 08:33] VITALS: BP 147/86
--- NOTE | 2016-10-07 10:00 | NUR ---
UP TO CHAIR WITH PT. NO CO AT TIME.
--- NOTE | 2016-10-07 11:30 | NUR ---
EATING LUNCH NO CO AT TIME.
--- NOTE | 2016-10-07 12:00 | NUR ---
TO HD VIA BED.
[2016-10-07 12:01] VITALS: BP 156/97
[2016-10-07] MEDS ORDERED: IBUPROFEN400 MG PO (14:49)
[2016-10-07] MEDS ORDERED: ZYPREXA2.5 MG PO (14:50)
[2016-10-07] MEDS ORDERED: FLORAJEN3 CAPS460 MG PO (14:51)
[2016-10-07] MEDS ORDERED: CHLORASEPTIC177 ML TOPICAL (14:53)
[2016-10-07] MEDS ORDERED: NYSTATIN ORAL SU5 ML PO (14:55)
[2016-10-07] MEDS ORDERED: LEVAQUIN500 MG PO (14:55)
--- NOTE | 2016-10-07 17:00 | NUR ---
DC TO REHAB.
--- NOTE | 2016-10-07 17:16 | NUR ---
B/P 180/110 CLONIDINE GIVEN
--- NOTE | 2016-10-08 08:20 | NUR ---
Patient Name: NOLAN STOVALL Encounter No: [id number] : 1950 Primary Insurance: MEDICARE A & B Anticipated DC Date: 10-06-2016 Planned Disposition: Inpatient Rehab External Planned Provider: [facility] INPAT[facility] RE[facility] DCP follow-up note: PT ADMITTED TO INPATIENT REHAB, FEI CALLED BERNARDO OF [facility], , EXT [phone], NOTIFIED OF PT'S ADMISSION TO REHAB. MICHELLE REPORTED THAT IT IS PROBABLE THAT NEW CLINICAL PAPERWORK AND POSSIBLY A NEW APPLICATION WILL NEED TO BE SUBMITTED. AT THE VERY LEAST, THE DOCTOR WILL NEED TO CORRECT THE FIRST PRESCRIPTION WITH A LEGIBLE DATE OF PRESCRIPTION. FEI CALLED ANISHA OF [employer] AT [phone], NOTIFIED OF PT'S ADMISSION TO INPATIENT REHAB. Shreyas Felton, CASE MANAGEMENT
[2016-10-08 17:11] LABS: AEROBE ID Preliminary report (()); RESULT 1 Gram negative rods (())
== END 2016-10-07 17:10 | DRG 314 ==
LOC: D.M2 14:55 → D.OPS 15:30 → EDSTATUS 09-30 07:30 → D.M2 09-30 07:39
PROVIDERS: Internal Medicine; Internal Medicine Nephrology; Student in an Organized Health Care Education/Training Program; Surgery; ADMIT Internal Medicine Nephrology
PROC: 0XP70JZ Removal of Synthetic Substitute from Left Upper Extremity, Open Approach (ICD-10-PCS; principal; 2016-09-30 07:30)
PROC: 0HQ5XZZ Repair Chest Skin, External Approach (ICD-10-PCS; 2016-10-05)
PROC: B5131ZA Fluoroscopy of Right Jugular Veins using Low Osmolar Contrast, Guidance (ICD-10-PCS; 2016-10-05)
PROC: 05HM33Z Insertion of Infusion Device into Right Internal Jugular Vein, Percutaneous Approach (ICD-10-PCS; 2016-10-05 09:00)
DX: T82.7XXA Infection and inflammatory reaction due to other cardiac and vascular devices, implants and grafts, initial encounter (principal); N18.6 End stage renal disease; A41.50 Gram-negative sepsis, unspecified; T81.31XA Disruption of external operation (surgical) wound, not elsewhere classified, initial encounter; I12.0 Hypertensive chronic kidney disease with stage 5 chronic kidney disease or end stage renal disease; Y83.8 Other surgical procedures as the cause of abnormal reaction of the patient, or of later complication, without mention of misadventure at the time of the procedure; Z99.2 Dependence on renal dialysis; M34.9 Systemic sclerosis, unspecified

== ENCOUNTER 2016-10-07 18:21 | Inpatient (IN) | payer MEDICARE, OTHER ==
[~2016-10-07] VITALS: Ht 167.6 cm; Wt 62.0 kg
[~2016-10-07 18:21] MED LIST changes: +CATAPRES0.1 MG PO; +CHLORASEPTIC177 ML TOPICAL; +FLORAJEN3 CAPS460 MG PO; +IBUPROFEN400 MG PO; +LEVAQUIN500 MG PO; +LOPRESSOR25 MG PO; +NYSTATIN ORAL SU5 ML PO; +ZOFRAN8 MG PO; +ZYPREXA2.5 MG PO
--- NOTE | 2016-10-07 19:30 | NUR ---
REST IN BED, EYE OPEN, DENIES NEEDS.
[2016-10-07 22:33] VITALS: BP 170/88; BMI 22.9
--- NOTE | 2016-10-07 23:00 | NUR ---
ADMISSION ASSESSMENT COMPLETE. PATIENT DENIES CURRENT NEEDS.
--- NOTE | 2016-10-08 00:10 | NUR ---
ASSISTED PT WITH BEDSIDE COMMODE.
[2016-10-08 00:32] VITALS: BP 169/97
--- NOTE | 2016-10-08 03:34 | NUR ---
PT STATE ROOM AIR IS TOO HOT, ADJUST ROOM TEMP.
[2016-10-08 05:12] VITALS: BP 159/89
[2016-10-08 06:27] LABS: ANION GAP 14.8 mmol/L (8-16); CARBON DIOXIDE 25.9 mmol/L (21.0-32.0); POTASSIUM - SERUM 3.7 mmol/L (3.5-5.1)
[2016-10-08 06:29] LABS: CREATININE - SERUM 2.9 mg/dL (0.6-1.3)
[2016-10-08 06:37] LABS: HEMATOCRIT 27.3 % (36.0-48.0); HEMOGLOBIN 8.9 g/dL (12-16); MCH 30.2 pg (26.0-34.0); MCHC 32.6 g/dL (31.0-37.0); MCV 92.5 fL (80.0-100.0); MEAN PLATELET VOLUME 9.4 fL (7.4-10.4); PLATELET COUNT 209 10x3/uL (130-400); RBC 2.95 10x6/uL (4.00-5.40); RDW 16.7 % (11.5-14.5); WBC 11.3 10x3/uL (4.8-10.8)
[2016-10-08 07:10] LABS: EOSINOPHILS 2 % (0-7); LYMPHOCYTES 10 % (15-50); MONOCYTES 12 % (2-11); NEUTROPHILS 74 % (40-80); PLATELET ESTIMATE NORMAL
--- NOTE | 2016-10-08 10:00 | NUR ---
PT AM MEDS ADMINISTERED. PT DENIES NEEDS. CURRENTLY WORKING WITH OT. JORGE.
--- NOTE | 2016-10-08 12:15 | NUR ---
PT EATING LUNCH, DENIES NEEDS. WCTM.
[2016-10-08 12:30] VITALS: BP 164/92
[2016-10-08 14:31] VITALS: Ht 167.6 cm; Wt 62.0 kg
--- NOTE | 2016-10-08 16:00 | NUR ---
PT IN THERAPY. PT DENIES NEEDS. WCTM.
--- NOTE | 2016-10-08 16:19 | NUR ---
WOUND TYPE: surgical WOUND LOCATION: left upper arm x 3 WOUND AGE IN MONTHS: days DEBRIDEMENT ATTEMPTED IN LAST 10 DAYS? DATE/TYPE: SERIAL DEBRIDEMENTS REQUIRED? MEASUREMENT DATE: 10/08/16 #1 upper most incision 10cm x 2.5cm x 1.3cm #2 middle incision 5cm x 1cm x 0.7cm #3 lower incision 5.5cm x 1.5cm x 0.7cm FULL THICKNESS? yes MUSCLE, TENDON OR BONE EXPOSED? no UNDERMINING? no TUNNELING/SINUS? no APPEARANCE OF WOUND BED : red/beefy EXUDATE (AMOUNT, COLOR, ODOR): small serosanguinous no odor FOAM TYPE: white x 3 wounds # OF PIECES USED: 3 pieces FOAM TYPE: black # OF PIECES USED: 3 pieces to connect EDUCATION: healing process/pt voiced understanding -125mmhg mod continuous
[2016-10-08 18:21] VITALS: BP 157/97
[2016-10-08 19:21] VITALS: BP 140/80
--- NOTE | 2016-10-08 19:21 | NUR ---
RESTING IN BED WITH EYES OPEN AND TV ON. ALERT AND ORIENTED. DENIES ANY PAIN. WOUND VAC TO LEFT UPPER ARM INTACT AND FUNCTIONING PROPERLY AT 125 MMGH CONTINUIOUS. SALINE LOCK TO RIGHT HAND PATENT. DRESSING INTACT. HEMOSPLIT TO RIGHT CHEST WITH DRESSING INTACT AND LEFT ARM RESERVED. LEFT ARM HAS FISTULA ABOVE AC. GOOD BRUIT AND THRILL. HAS A HEMATOMA ON FISTULA PER PT..NO DISCOLRATION TO THE AREA. CALL LIGHT AND OVERBED TABLE IN REACH.
--- NOTE | 2016-10-08 21:17 | NUR ---
LAYING IN BED WITH EYES OPEN AND TV ON. PLEASANT AND COOPERATIVE. DENIES ANY PAIN.
[2016-10-09 00:02] VITALS: BP 140/80
[2016-10-09 00:23] VITALS: BP 114/62
--- NOTE | 2016-10-09 01:15 | NUR ---
RESTING IN [place] EYES CLOSED. NO S/S OF DISTRESS OBSERVED. CALL LIGHT AND OVERBED TABLE IN REACH.
[2016-10-09 05:34] VITALS: BP 134/58
--- NOTE | 2016-10-09 07:50 | NUR ---
IN THERAPY GYM WITH PHYSICAL THERAPIST YAZ. OFFERS NO COMPLAINTS. WILL CONTINUE TO MONITOR
[2016-10-09 08:00] VITALS: BP 178/98
--- NOTE | 2016-10-09 10:20 | NUR ---
TRANSPORTED TO DIALYSIS VIA WHEELCHAIR
--- NOTE | 2016-10-09 10:38 | NUR ---
SITTING UP IN BED 90 DEGREES. AT BEDSIDE. C/O PAIN IN RIGHT ANKLE, REPOSITIONED LEG AND ANKLE FOR COMFORT. NO OTHER CONCERNS VOICED. STATES SON WILL BE BY LATER TO SIGN PAPERWORK
[2016-10-09 12:05] VITALS: BP 188/99
--- NOTE | 2016-10-09 13:00 | NUR ---
RECIEVED PT ON FLOOR FROM DIALYSIS VIA WHEELCHAIR.
--- NOTE | 2016-10-09 14:57 | NUR ---
IN THERAPY GYM WITH PHYSICAL THERAPY.
--- NOTE | 2016-10-09 16:08 | NUR ---
LYING IN BED RESTING COMFORTABLY. OFFERS NO COMPLAINTS. CALL LIGHT IN REACH. WILL CONTINUE TO MONITOR
[2016-10-09 17:46] VITALS: BP 174/93
--- NOTE | 2016-10-09 19:40 | NUR ---
PT WAS ABLE TO VOID 1100CC, ABLE TO START 24HR URINE COLLECTION NOW. PT STATED TAPE ON HAND IS COMING OFF SO WILL REDO PT TAPE. BED IN LOW POSITION, CALL LIGHT IN REACH NO SIGN OF DISTRESS WILL CONTINUE TO MONITOR
--- NOTE | 2016-10-09 19:50 | NUR ---
PT. IN BED WITH HOB UP FOR COMFORT AND WATCHING TV. WOUND VAC ON WITHOUT ALARMS. NO VOICED NEEDS AT THIS TIME AND HER CALL LIGHT IS WITHIN REACH.
--- NOTE | 2016-10-09 22:38 | NUR ---
PT IS LYING IN BED EYES CLOSED TV ON, NO SIGNS OF DISTRESS, AWAKE AT SLIGHTEST SOUND, ASKED ABOUT RETAPING. NO OTHER SIGNS OF DISTRESS, WILL CONTINUE TO MONITOR
[2016-10-10 00:45] VITALS: BP 165/100
--- NOTE | 2016-10-10 01:33 | NUR ---
PT VOIDED 400 AT 0120 STARTED 24HR URINE COLLEDTION, PT BP WAS 165/100 GAVE DOSE OF APRESALINE, NO OTHER NEEDS AT THIS TIME. WILL CONTINUE WITH PLAN OF CARE
[2016-10-10 06:46] VITALS: BP 146/92
--- NOTE | 2016-10-10 07:45 | NUR ---
LYING IN BED RESTING COMFORTABLY. NO S/SX OF DISTRESS. EASILY AROUSED WITH STIMULI. OFFERS NO COMPLAINTS AND DENIES PAIN. CALL LIGHT IN REACH. WILL CONTINUE TO MONITOR
--- NOTE | 2016-10-10 09:20 | NUR ---
SITTING UP IN BED EATING BREAKFAST. OFFERS NO COMPLAINTS. CALL LIGHT IN REACH. WILL CONTINUE TO MONITOR
[2016-10-10 13:26] VITALS: BP 182/100
--- NOTE | 2016-10-10 13:39 | NUR ---
SITTING UP IN BED RESTING. OFFERS NO COMPLAINTS. ADMINISTERED APRESOLINE 25MG DUE TO BP 182/100. NO S/SX OF DISTRESS. CALL LIGHT IN REACH
--- NOTE | 2016-10-10 15:39 | NUR ---
SITTING UP IN BED RESTING AND VISITING WITH FAMILY. CALL LIGHT IN REACH. WILL CONTINUE TO MONITOR
--- NOTE | 2016-10-10 17:10 | NUR ---
RESTING QUIETLY IN BED.CL IN REACH.
[2016-10-10 17:57] VITALS: BP 159/84
--- NOTE | 2016-10-10 19:28 | NUR ---
PT UP IN BED TALKING ON PHONE, PT STATED WOULD LIKE TO HAVE A LARGE ICE WATER, WATER TAKEN TO ROOM, PT STATES NO OTHER NEEDS AT THIS TIME, WILL CONTINUE TO MONITOR. CALL LIGHT WITHIN REACH.
--- NOTE | 2016-10-10 19:46 | NUR ---
PT. SITTING UP IN BED AND IS FINISHING HER DINNER. WOUND VAC TO LEFT FOREARM WITHOUT ANY ALARMS. CALL LIGHT WITHIN REACH.
[2016-10-10 20:35] VITALS: BP 155/83
--- NOTE | 2016-10-10 20:40 | NUR ---
NIGHT MEDICATION GIVEN, PT TOLERATED WELL, WILL CONTINUE TO MONITOR, CALL LIGHT WITHIN REACH.
--- NOTE | 2016-10-10 22:33 | NUR ---
PT RESTING IN BED WATCHING TV, SIDE RAILS UP X'S 2, BED IN LOW POSITION, CALL LIGHT WITHIN REACH, WILL CONTINUE TO MONITOR.
[2016-10-11 00:16] VITALS: BP 145/74
--- NOTE | 2016-10-11 00:31 | NUR ---
VITAL SIGNS TAKEN IN RIGHT ARM, PT STATES NO NEEDS AT THIS TIME, WILL CONTINUE TO MONITOR, CALL LIGHT WITHIN REACH.
--- NOTE | 2016-10-11 01:17 | NUR ---
ASSISTED PT TO BEDSIDE COMODE AND BACK TO BED WITH MINIMAL ASSISTANCE, 24 HOUR URINE COMPLETED AND COLLECTED, PT STATES NO NEEDS AT THIS TIME, WILL CONTINUE TO MONITOR, CALL LIGHT WITHIN REACH.
[2016-10-11 01:39] LABS: CREATININE - URINE 9.1 mg/dL (30-125)
[2016-10-11 01:53] LABS: BASOPHILS 0.5 % (0-2); EOSINOPHILS 2.5 % (0-7); HEMATOCRIT 28.3 % (36.0-48.0); IMMATURE GRANULOCYTES 0.7 % (0-5); LYMPHOCYTES 16.6 % (15-50); MCH 29.1 pg (26.0-34.0); MCHC 31.8 g/dL (31.0-37.0); MCV 91.6 fL (80.0-100.0); MEAN PLATELET VOLUME 9.9 fL (7.4-10.4); MONOCYTES 8.3 % (2-11); NEUTROPHILS 71.4 % (40-80); PLATELET COUNT 250 10x3/uL (130-400); RBC 3.09 10x6/uL (4.00-5.40); WBC 10.2 10x3/uL (4.8-10.8)
[2016-10-11 02:05] LABS: ANION GAP 15.2 mmol/L (8-16); CALCIUM 8.2 mg/dL (8.5-10.1); CARBON DIOXIDE 25.1 mmol/L (21.0-32.0); CREATININE - SERUM 4.6 mg/dL (0.6-1.3); POTASSIUM - SERUM 4.3 mmol/L (3.5-5.1)
--- NOTE | 2016-10-11 03:33 | NUR ---
PT REQUESTED A GLASS OF WATER, CALL LIGHT WITHIN REACH. WILL CONTINUE TO MONITOR.
[2016-10-11 06:15] VITALS: BP 162/90
--- NOTE | 2016-10-11 09:18 | NUR ---
PT AM MEDS ADMINISTERED. PT DRESSED AND READY FOR THERAPY. PT DENEIS NEEDS. WCTM.
--- NOTE | 2016-10-11 10:00 | NUR ---
PT RT HAND IV DC'D, CATHETER INTACT. PT TOLERATED WELL. WCTM.
--- NOTE | 2016-10-11 11:21 | NUR ---
PT RESTING IN BED, EYES CLOSED. AROUSES EASILY TO VOICE. WCTM.
--- NOTE | 2016-10-11 13:48 | NUR ---
PT REPORTED FEELING DIZZY AND LIGHT HEADED. PT BP 176/97. PT GIVEN PRN APRESOLINE. WCTM.
--- NOTE | 2016-10-11 14:08 | NUR ---
PT BP DOWN TO 152/88.
[2016-10-11 14:23] VITALS: BP 152/88
--- NOTE | 2016-10-11 16:51 | NUR ---
WOUND VAC DRESSING CHANGE WOUND TYPE: SURGICAL WOUND LOCATION: #1 UPPER MOST LEFT ARM #2 MID ARM #3 LOWER ARM WOUND AGE IN MONTHS: WEEK DEBRIDEMENT ATTEMPTED IN LAST 10 DAYS? DATE/TYPE: SERIAL DEBRIDEMENTS REQUIRED? MEASUREMENT DATE: 10/11/16 #1 10CM X 2.5CM X 0.7CM (IMPROVED) #2 5CM X 0.6CM X 0.4CM (IMPROVED) #3 5.5CM X 0.7CM X 0.3CM (IMPROVED) FULL THICKNESS? YES MUSCLE, TENDON OR BONE EXPOSED? NO UNDERMINING? NO TUNNELING/SINUS? NO APPEARANCE OF WOUND BED : RED BEEFY EXUDATE (AMOUNT, COLOR, ODOR): SMALL SEROUS NO ODOR FOAM TYPE: BLACK # OF PIECES USED: 3 PIECES FOR 3 WOUNDS + FOAM TYPE: BLACK # OF PIECES USED: 3 PIECES TO ATTACH WOUNDS EDUCATION: WOUND HEALING PT VOICED UNDERSTANDING -125MMHG MOD CONTINUOUS PT TOLERATED WELL.
[2016-10-11 19:00] VITALS: BP 161/99
--- NOTE | 2016-10-11 19:20 | NUR ---
PT IS RESTING IN BED WITH EYES OPEN. ALERT AND ORIENTED X 4. DENIES ACUTE DISCOMFORT AT THIS TIME. VSS. RIGHT CHEST EDUARDO SPLIT CATHETER NOTED. WOUND VAC TO LEFT ARM IS CDI. PT IS VERY FRIENDLY AND TALKATIVE. SR'S ARE UP X 2 IN BED. CALL LIGHT AND BEDSIDE TABLE ARE WITHIN EASY REACH.
--- NOTE | 2016-10-11 21:04 | NUR ---
PT IS RESTING IN BED WITH EYES OPEN. REQUESTED LIGHTS OUT AT THIS TIME. NO OTHER NEEDS VOICED.
--- NOTE | 2016-10-12 00:10 | NUR ---
PATIENT AWAKE. SAYS SHE WAS JUST CLEANING HER TEETH. DENIES NEEDS.
[2016-10-12 00:39] VITALS: BP 153/98
--- NOTE | 2016-10-12 01:12 | NUR ---
RESTING QUIETLY IN BED WITH EYES CLOSED. RESPS ARE EVEN AND UNLABORED. NO ACUTE DISTRESS NOTED.
--- NOTE | 2016-10-12 04:48 | NUR ---
RESTING IN BED WITH EYES CLOSED.
[2016-10-12 06:10] VITALS: BP 180/87
[2016-10-12 07:00] VITALS: BP 158/67
--- NOTE | 2016-10-12 08:30 | NUR ---
PT AM MEDS ADMINSITERED. PT ASSISTED WITH DRESSING FOR THERAPY. PT ASSISTED TO BEDSIDE COMMODE. PT VOIDED 250 ML. PT BACK IN BED WAITING FOR THERAPY. WCTM.
[2016-10-12 13:13] VITALS: BP 187/102
--- NOTE | 2016-10-12 13:25 | NUR ---
DR LION IN TO SEE PT. PT QUESTIONS ANSWERED. WCTM.
--- NOTE | 2016-10-12 14:25 | NUR ---
PT TAKEN TO DIALYSIS VIA BED X2 ASSIST.
[2016-10-12 19:00] VITALS: BP 142/79
--- NOTE | 2016-10-12 19:30 | NUR ---
PT IS RESTING IN BED WITH EYES OPEN. ALERT AND ORIENTED X 4. DENIES ANY DISCOMFORT AT THIS TIME. WOUND VAC TO LEFT UPPER ARM IS CDI. NO DRAINAGE NOTED. RIGHT CHEST EDUARDO SPLIT CATH NOTED. USED IN DIALYSIS ONLY. SR'S ARE UP X 2 IN BED. CALL LIGHT AND BEDSIDE TABLE ARE WITHIN EASY REACH.
--- NOTE | 2016-10-12 21:03 | NUR ---
PT IS RESTING IN BED WATCHING TV. NO NEEDS VOICED.
[2016-10-13 00:01] VITALS: BP 138/74
--- NOTE | 2016-10-13 00:01 | NUR ---
RESTING IN BED WITH EYES CLOSED.
--- NOTE | 2016-10-13 02:09 | NUR ---
RESTING IN BED WITH EYES CLOSED. ASSISTED TO BSC PRN.
--- NOTE | 2016-10-13 02:21 | NUR ---
RESTING IN BED WITH EYES CLOSED, NO S/S OF DISTRESS OBSERVED. HEMISPLIT TO RIGHT CHEST INTACT,DRESSIN CLEAN, DRY AND INTACT. CALL LIGHT IN REACH.
--- NOTE | 2016-10-13 05:56 | NUR ---
PT RESTING IN BED WITH EYES CLOSED. AWOKE EASILY TO VERBAL STIMULI. TOLERATED AM MEDS WITHOUT DIFFICULTY. NO NEEDS VOICED.
[2016-10-13 06:47] LABS: BASOPHILS 0.9 % (0-2); EOSINOPHILS 1.9 % (0-7); HEMATOCRIT 27.3 % (36.0-48.0); HEMOGLOBIN 8.8 g/dL (12-16); IMMATURE GRANULOCYTES 0.4 % (0-5); LYMPHOCYTES 18.8 % (15-50); MCH 29.4 pg (26.0-34.0); MCHC 32.2 g/dL (31.0-37.0); MCV 91.3 fL (80.0-100.0); MEAN PLATELET VOLUME 10.5 fL (7.4-10.4); MONOCYTES 10.8 % (2-11); NEUTROPHILS 67.2 % (40-80); PLATELET COUNT 259 10x3/uL (130-400); RBC 2.99 10x6/uL (4.00-5.40); RDW 16.4 % (11.5-14.5)
[2016-10-13 07:02] LABS: ANION GAP 15.2 mmol/L (8-16); C-REACTIVE PROTEIN 8.9 mg/dL (0.0-0.9); CALCIUM 8.4 mg/dL (8.5-10.1); CARBON DIOXIDE 26.9 mmol/L (21.0-32.0); CREATININE - SERUM 3.2 mg/dL (0.6-1.3); POTASSIUM - SERUM 4.1 mmol/L (3.5-5.1)
[2016-10-13 08:06] VITALS: BP 172/93
[2016-10-13 08:51] LABS: ERYTHROCYTE SEDIMENTATION RATE 53 mm/hr (0-30)
--- NOTE | 2016-10-13 10:29 | NUR ---
Nutrition Follow Up: Pt was unavailable at the time of RD visit. Interview deferred. Pt is eating 63% meal avg on a renal diet. She is receiving Nepro TID. Wt stable. No BM since admit. Labs and meds reviewed. Rec continue current diet, supplement regimen. RD following.
[2016-10-13 11:38] VITALS: BP 175/91
--- NOTE | 2016-10-13 12:15 | NUR ---
PT EATING LUNCH, DENIES NEEDS. WCTM.
--- NOTE | 2016-10-13 13:52 | NUR ---
WOUND VAC DRESSING CHANGE WOUND TYPE: surgical WOUND LOCATION:#1 left upper arm #2 left mid arm #3 left lower wound WOUND AGE IN MONTHS: DEBRIDEMENT ATTEMPTED IN LAST 10 DAYS? DATE/TYPE: SERIAL DEBRIDEMENTS REQUIRED? MEASUREMENT DATE: 10/13/16 #1 9.5cm x 1.3cm x 0.5cm (improved) #2 4.2cm x 0.4cm x 0.2cm (improved) #3 0.8cm x 4.5cm x 0.2cm (improved) FULL THICKNESS? yes MUSCLE, TENDON OR BONE EXPOSED? no UNDERMINING? no TUNNELING/SINUS? no APPEARANCE OF WOUND BED : red/beefy EXUDATE (AMOUNT, COLOR, ODOR): small fibrinous no odor FOAM TYPE: black # OF PIECES USED: 5 pieces -125mmhg mod continuous
--- NOTE | 2016-10-13 15:12 | NUR ---
PT RESTING IN BED, VISITOR AT BEDSIDE. PT DENIES NEEDS. WCTM.
[2016-10-13 18:11] VITALS: BP 177/90
--- NOTE | 2016-10-13 19:42 | NUR ---
PT. IN BED WITH HOB UP FOR COMFORT AND VISITING WITH MALE INDIVIDUAL. WOUND VAC TO LUE INTACT AND WITHOUT ALARMS. NO VOICED NEEDS AND HER CALL LIGHT IS WITHIN REACH.
--- NOTE | 2016-10-13 21:13 | NUR ---
PT IS RESTING IN BED WATCHING TV. ALERT AND ORIENTED X 4. DENIES ACUTE DISCOMFORT AT THIS TIME. VSS. RIGHT CHEST EDUARDO SPLIT CATH NOTED. WOUND VAC IS INTACT TO LEFT UPPER ARM. NO DRAINAGE NOTED. SR'S ARE UP X 2 IN BED. CALL LIGHT AND BEDSIDE TABLE ARE WITHIN EASY REACH.
[2016-10-14 00:01] VITALS: BP 149/79
--- NOTE | 2016-10-14 01:15 | NUR ---
PT IS RESTING QUIETLY IN BED WITH EYES CLOSED. RESPS ARE EVEN AND UNLABORED. NO ACUTE DISTRESS NOTED.
--- NOTE | 2016-10-14 03:06 | NUR ---
RESTING IN BED WITH EYES CLOSED.
[2016-10-14 05:23] VITALS: BP 150/79
--- NOTE | 2016-10-14 05:46 | NUR ---
PT ASSISTED TO THE BATHROOM WITH SBA. NO NEEDS VOICED.
--- NOTE | 2016-10-14 07:36 | NUR ---
PT RESTING IN BED WITH EYES OPEN CALL LIGHT IN REACH WILL MONITER
--- NOTE | 2016-10-14 11:20 | NUR ---
SITTING UP IN WC ACTIVE IN THERAPY.
[2016-10-14 12:00] VITALS: BP 165/95
--- NOTE | 2016-10-14 13:00 | NUR ---
PT TAKEN TO DIALYSIS VIA BED TOLERATED WELL
--- NOTE | 2016-10-14 14:57 | NUR ---
PT IN DIALYSIS
[2016-10-14 18:03] VITALS: BP 160/75
--- NOTE | 2016-10-14 20:00 | NUR ---
PT. IN BED WITH HOB UP FOR COMFORT AND WATCHING TV. NO VOICED NEEDS AT THIS TIME. ASSESSMENT COMPLETED AND HER CALL LIGHT IS WITHIN REACH.
[2016-10-14 20:15] VITALS: BP 115/98
--- NOTE | 2016-10-14 23:28 | NUR ---
PT. IN BED WITH HOB UP FOR COMFORT WITH EYES CLOSED AND RESP. EVEN. WOUND VAC TO LUE ON WITHOUT ANY ALARMS. CALL LIGHT WITHIN REACH.
[2016-10-15 00:35] VITALS: BP 149/76
--- NOTE | 2016-10-15 03:08 | NUR ---
PT. IN BED WITH HOB UP FOR COMFORT WITH EYES CLOSED AND RESP. EVEN. CALL LIGHT WITHIN REACH.
[2016-10-15 06:32] LABS: BASOPHILS 1.5 % (0-2); EOSINOPHILS 3.1 % (0-7); HEMATOCRIT 29.2 % (36.0-48.0); HEMOGLOBIN 9.3 g/dL (12-16); IMMATURE GRANULOCYTES 0.3 % (0-5); LYMPHOCYTES 20.8 % (15-50); MCH 29.2 pg (26.0-34.0); MCHC 31.8 g/dL (31.0-37.0); MCV 91.8 fL (80.0-100.0); MEAN PLATELET VOLUME 10.2 fL (7.4-10.4); NEUTROPHILS 63.3 % (40-80); PLATELET COUNT 303 10x3/uL (130-400); RBC 3.18 10x6/uL (4.00-5.40); RDW 16.4 % (11.5-14.5); WBC 6.5 10x3/uL (4.8-10.8)
[2016-10-15 06:38] VITALS: BP 150/96
[2016-10-15 06:51] LABS: ANION GAP 13.8 mmol/L (8-16); CALCIUM 8.4 mg/dL (8.5-10.1); CARBON DIOXIDE 27.6 mmol/L (21.0-32.0); CREATININE - SERUM 3.2 mg/dL (0.6-1.3); POTASSIUM - SERUM 4.4 mmol/L (3.5-5.1)
--- NOTE | 2016-10-15 07:50 | NUR ---
RESTING QUIETLY IN BED. NO S/S DISTRESS OR NEEDS. CALL LIGHT IN REACH
[2016-10-15 11:45] VITALS: BP 155/89
--- NOTE | 2016-10-15 15:37 | NUR ---
PT RESTING IN BED WITH EYES OPEN CALL LIGHT IN REACH WILL MONITER
--- NOTE | 2016-10-15 15:49 | NUR ---
WOUND TYPE: surgical WOUND LOCATION: #1 left upper arm #2 Left mid arm #3 left arm WOUND AGE IN MONTHS: DEBRIDEMENT ATTEMPTED IN LAST 10 DAYS? DATE/TYPE: SERIAL DEBRIDEMENTS REQUIRED? MEASUREMENT DATE: 10/15/16 #1: 9cm x 1.2cm x 0.5cm (improved) #2 4cm x 0.3cm x 0.2cm (improved) #3 4cm x 0.5cm x 0.2cm (improved) FULL THICKNESS? yes MUSCLE, TENDON OR BONE EXPOSED? no UNDERMINING? no TUNNELING/SINUS? no APPEARANCE OF WOUND BED : red (all) EXUDATE (AMOUNT, COLOR, ODOR): small serous no odor FOAM TYPE: black # OF PIECES USED: 4 pieces EDUCATION: home vac use -125mmhg mod continuous
--- NOTE | 2016-10-15 15:53 | NUR ---
INFORMATION FAXED TO [facility] TO WOUND VAC FOR HOME USE FOR DISCHARGED DATE OF 10/20/16 WITH CONFORMATION RECEIVED
--- NOTE | 2016-10-15 16:29 | NUR ---
PATIENT ADMITTED TO REHAB FROM ACUTE FLOOR, SHE HAS HD ON TTS ON THE 2ND SHIFT AT [facility]. DR. LION IS HER PCP, [facility] IS HER PHARMACY. DME AT HOME: [facility]. SHE HAS CHOSEN [facility] [facility] TO PROVIDE THERAPY AT HOME. WILL CONTINUE TO FOLLOW WITH PATIENT.
[2016-10-15 18:10] VITALS: BP 155/86
--- NOTE | 2016-10-15 19:20 | NUR ---
UP IN BED WITH EYES OPEN AND TV ON. PLEASANT AND COOPERATIVE. DENIES ANY PAIN AT THIS TIME. HEMOSPLIT TO RIGHT UPPER CHEST. DRESSING CLEAN, DRY AND INTACT.WOUND VAC DRESSING TO LEFT UPPER ARM. CLEAN, DRY AND INTACT. WOUND VAC RUNNING CONTINUOUS AT 125MMG.
[2016-10-15 20:13] VITALS: BP 136/102
--- NOTE | 2016-10-15 21:27 | NUR ---
LAYING IN BED WITH TV ON AND TALKING ON THE TELEPHONE. NO S/S OF DISTRESS OBSERVED.
[2016-10-16 00:25] VITALS: BP 141/79
[2016-10-16 05:30] VITALS: BP 152/81
[2016-10-16 07:11] VITALS: BP 157/86
--- NOTE | 2016-10-16 07:30 | NUR ---
LYING IN BED RESTING COMFORTABLY. OFFERS NO COMPLAINTS. CALL LIGHT IN REACH. WILL CONTINUE TO MONITOR
--- NOTE | 2016-10-16 07:33 | NUR ---
RESTING QUIETLY IN BED. NO S/S DISTRESS NOTED. CALL LIGHT IN REACH
--- NOTE | 2016-10-16 10:01 | NUR ---
SITTING UP IN BED RESTING QUIETLY. OFFERS NO COMPLAINTS. CALL LIGHT IN REACH. WILL CONTINUE TO MONITOR
--- NOTE | 2016-10-16 10:50 | NUR ---
TRANSPORTED TO DIALYSIS VIA BED.
[2016-10-16 12:42] VITALS: BP 152/90
--- NOTE | 2016-10-16 17:01 | NUR ---
SITTING OUTSIDE ON BACK DECK WITH FAMILY. OFFERS NO COMPLAINTS AND DENIES PAIN. CALL LIGHT IN REACH. WILL CONTINUE TO MONITOR
[2016-10-16 18:13] VITALS: BP 147/78
--- NOTE | 2016-10-16 19:25 | NUR ---
RECIEVED LYING IN BED WITH EYES CLOSED. NO S/S OF DISTRESS OBSERVED. EASILY AROUSES WITH VERBAL STIMULI. DENIES ANY PAIN.
[2016-10-16 20:21] VITALS: BP 108/68
--- NOTE | 2016-10-16 21:38 | NUR ---
RESTING IN BED WITH EYES OPEN AND TV ON. PLEASANT AND COOPERATIVE, ASSISTED TO TOILET REQUIREING SUPERVISION ONLY WITH AMBULATION. USES A WALKER TO AMBULATE. DRESSING TO LEFT UPPER ARM INTACT WITH WOUND VAC RUNNING AT 125 MMHG, SEROSANGUOS DRAINAGE IN DRAINAGE SYSTEM. HEMOSPLIT TO RIGHT UPPER CHEST WITH DRESSING CLEAN, DRY AND INTACT. DENIES ANY PAIN. CALL LIGHT AND OVERBED TABLE IN REACH. LL LOBE HAS CRACKLES. ABD. SOFT AND NONTENDER. NO EDEMA PRESENT
--- NOTE | 2016-10-17 | NUR ---
RESTING IN BED WITH EYES CLOSD. NO S/S OF DISTRESS OBSERVED. CALL LIGHT AND OVERBED TABLE IN REACH.
[2016-10-17 00:34] VITALS: BP 134/76
--- NOTE | 2016-10-17 04:36 | NUR ---
resting in bed with eyes closed. no s/s of distress observed.
[2016-10-17 05:03] VITALS: BP 141/77
--- NOTE | 2016-10-17 07:45 | NUR ---
SITTING UP IN BED RESTING COMFORTABLY. OFFERS NO COMPLAINTS. ASSISTED WITH OPENING JUICE ON BREAKFAST TRAY. ALERT AND ORIENTED PLEASANT AFFECT. CALL LIGHT IN REACH. WILL CONTINUE TO MONITOR
--- NOTE | 2016-10-17 09:09 | NUR ---
LYING IN BED RESTING COMFORTABLY. OFFERS NO COMPLAINTS. CALL LIGHT IN REACH
--- NOTE | 2016-10-17 11:18 | NUR ---
SITTING UP IN BED RESTING COMFORTABLY. OFFERS NO COMPLAINTS. DENIES PAIN. CALL LIGHT IN REACH
[2016-10-17 13:09] VITALS: BP 138/74
[2016-10-17 18:29] VITALS: BP 142/74
--- NOTE | 2016-10-17 19:55 | NUR ---
REST IN BED AND WATCH TV.
[2016-10-18 00:37] VITALS: BP 154/74
--- NOTE | 2016-10-18 03:19 | NUR ---
REST IN BED, EYE CLOSE, CALL LIGHT IN REACH.
--- NOTE | 2016-10-18 04:08 | NUR ---
RESTING IN BED WITH EYES CLOSED. NO S/S OF DISTRESS OBSERVED. HEMOSPLIT TO LEFT CHEST. LEFT ARM RESERVED. REQUIRES Q6 HOUR V/S'S. CALL LIGHT AND OVERBED TABLE IN REACH.
[2016-10-18 05:24] LABS: BASOPHILS 1.1 % (0-2); EOSINOPHILS 5.9 % (0-7); HEMATOCRIT 24.8 % (36.0-48.0); IMMATURE GRANULOCYTES 0.2 % (0-5); LYMPHOCYTES 16.2 % (15-50); MCHC 32.3 g/dL (31.0-37.0); MCV 92.9 fL (80.0-100.0); MEAN PLATELET VOLUME 9.7 fL (7.4-10.4); NEUTROPHILS 67.6 % (40-80); PLATELET COUNT 283 10x3/uL (130-400); RBC 2.67 10x6/uL (4.00-5.40); RDW 16.2 % (11.5-14.5); WBC 8.2 10x3/uL (4.8-10.8)
[2016-10-18 05:31] LABS: ANION GAP 14.3 mmol/L (8-16); CALCIUM 8.1 mg/dL (8.5-10.1); CREATININE - SERUM 4.5 mg/dL (0.6-1.3); POTASSIUM - SERUM 4.3 mmol/L (3.5-5.1)
[2016-10-18 05:35] VITALS: BP 163/79
--- NOTE | 2016-10-18 08:22 | NUR ---
PT AM MEDS ADMINISTERED. PT RESTING IN BED EATING BREAKFAST. PT DENEIS NEEDS. WCTM. BED LOW. CL IN ERACH.
--- NOTE | 2016-10-18 11:10 | NUR ---
WOUND VAC DRESSING CHANGE WOUND TYPE: surgical (removal of infected graft/left arm/3 incisions) WOUND LOCATION: left arm WOUND AGE IN MONTHS: 2 wk DEBRIDEMENT ATTEMPTED IN LAST 10 DAYS? DATE/TYPE: SERIAL DEBRIDEMENTS REQUIRED? MEASUREMENT DATE: 10/18/16 #1 left upper most incision: 8.5cm x 1.4cm x 0.3cm (improved) #2 left middle incision : 0.3cm x 4cm x 0.1cm (nearly healed) #3 left lower incision: 3cm x 0.3cm x 0.1cm (nearly healed) FULL THICKNESS? #1 yes MUSCLE, TENDON OR BONE EXPOSED? no UNDERMINING? no TUNNELING/SINUS? no APPEARANCE OF WOUND BED : #1 red/beefy #2,#3: nearly healed EXUDATE (AMOUNT, COLOR, ODOR): small serous no odor FOAM TYPE: black # OF PIECES USED: 5 pieces 1pc for each woundbed (3) + (1) pc for pigtail + (1) pc for trac = 5 pieces -125mmhg mod continuous EDUCATION: Home vac options - pt voiced understanding Pt tolerated dressing change well.
[2016-10-18 13:07] VITALS: BP 148/72
[2016-10-18 18:36] VITALS: BP 146/75
--- NOTE | 2016-10-18 19:20 | NUR ---
PT IN BED WITH HOB UP FOR COMFORT. TALKING ON CELLPHONE. ALERT & ORIENTED. LEFT ARM WOUND VAC. LFT ARM RESERVE. STAND BY ASSIST. WALKER AND W/C. DAILY WEIGHT. Q6H VITALS. NO O2. RIGHT UPPER CHEST HEMOSPLIT. DIALYSIS T, TH, S. BED IN LOWEST POSITION AND CALL LIGHT WITHIN REACH.
--- NOTE | 2016-10-18 20:16 | NUR ---
PT. IN BED WITH HOB UP FOR COMFORT AND IS WATCHING TV. WOUND VAC TO LUE ON WITHOUT ANY ALARMS. CALL LIGHT WITHIN REACH.
[2016-10-19 00:04] VITALS: BP 146/76
--- NOTE | 2016-10-19 00:15 | NUR ---
PT LYING IN BED. EYES CLOSED. RESPIRATIONS EVEN AND UNLABORED. BED IN LOWEST POSITION AND CALL LIGHT WITHIN REACH.
--- NOTE | 2016-10-19 04:13 | NUR ---
PT LYING IN BED. EYES CLOSED. RESPIRATIONS EVEN AND UNLABORED. BED IN LOWEST POSITION AND CALL LIGHT WITHIN REACH.
[2016-10-19 06:08] VITALS: BP 172/90
--- NOTE | 2016-10-19 12:24 | NUR ---
Nutrition Follow Up: Pt stated that her appetite is improving. She agreed to Blane BID. Noted pt with wound vac. Pt is eating 97% meal avg on a renal diet. Wt stable. +BM 10/19/16. Labs reviewed. Meds noted. Rec continue current diet. Will send Blane BID. RD following.
[2016-10-19 13:10] VITALS: BP 142/77
[2016-10-19 15:16] LABS: ANION GAP 16.2 mmol/L (8-16); CALCIUM 8.3 mg/dL (8.5-10.1); CREATININE - SERUM 3.8 mg/dL (0.6-1.3); POTASSIUM - SERUM 4.2 mmol/L (3.5-5.1)
[2016-10-19 18:59] VITALS: BP 152/77
--- NOTE | 2016-10-19 19:35 | NUR ---
CHECK VITAL SIGNS, SEE FLOWSHEET.
--- NOTE | 2016-10-19 21:30 | NUR ---
REST IN BED AND WATCH TV.
[2016-10-20 00:18] VITALS: BP 164/84
[2016-10-20 03:09] LABS: OVA + PARASITE EXAM Final report (())
--- NOTE | 2016-10-20 03:10 | NUR ---
RESTING IN BED, EYES CLOSED. NO DISTRESS EVIDENT.
[2016-10-20 05:11] VITALS: BP 161/94
--- NOTE | 2016-10-20 05:18 | NUR ---
CHECK PT'S VITAL SIGNS, BP IS 161/94, HYDRALAZINE PRN MED GIVEN.
[2016-10-20 07:55] LABS: ERYTHROCYTE SEDIMENTATION RATE 65 mm/hr (0-30)
--- NOTE | 2016-10-20 08:08 | NUR ---
AM MEDS ADMINISTERED. PT EATING BREAKFAST AND DENIES NEEDS. WCTM.
--- NOTE | 2016-10-20 10:54 | NUR ---
WOUND VAC DRESSING CHANGE WOUND TYPE: surgical WOUND LOCATION: left arm 3 wounds WOUND AGE IN MONTHS: 2 weeks DEBRIDEMENT ATTEMPTED IN LAST 10 DAYS? DATE/TYPE: SERIAL DEBRIDEMENTS REQUIRED? MEASUREMENT DATE: 10/20/16 #1 left upper arm: 8cm x 0.6cm x 0.2cm (improved) #2 left mid arm: 2cm x 0.3cm x 0.1cm (nearly healed) #3 left lower wound: 2cm x 0.3cm x 0.1 (nearly healed) FULL THICKNESS? yes (#1) MUSCLE, TENDON OR BONE EXPOSED? no UNDERMINING? no TUNNELING/SINUS? no APPEARANCE OF WOUND BED : red EXUDATE (AMOUNT, COLOR, ODOR): none FOAM TYPE: black # OF PIECES USED: 5 pieces 3pcs for wounds + 1pc for pigtail + 1pc for trac pad = 5 pieces EDUCATION: home vac -125mmhg mod continuous Pt tolerated well. Going home today.
--- NOTE | 2016-10-20 11:27 | RHP ---
PATIENT: NOLAN STOVALL MEDICAL RECORD: [id number] ACCOUNT: [id number] LOCATION:[facility]1114 : 51 ADMISSION DATE: 10/07/16 REHABILITATION HISTORY AND PHYSICAL EXAMINATION POST ADMISSION PHYSICIAN EXAMINATION Post-Admission Physical Examination and History and Physical DATE OF ADMISSION: 10/07/2016 ADMITTING DIAGNOSIS: Uremic myopathy. HISTORY OF PRESENT ILLNESS: The patient is admitted to the inpatient rehab for uremic myopathy. She is a 66-year-old female patient with end-stage renal disease, on hemodialysis. She has been on that for about 10 years. She has a history of scleroderma. She was admitted due to problems with graft in her arm. She has had quite a few issues with the graft in the last year. She has had multiple surgeries. She has even had to have skin grafts over this area. The graft seems to have clotted off. She has had fever up to 101 prior to the acute hospital admit associated with nausea, vomiting and diarrhea. Her left arm was warm and red with a graft. She has undergone surgical intervention to her infected vascular graft and now the wound VAC to her left arm is in place. She was admitted in May 2016 for revision of her graft at that time, got IV vancomycin for about 6 weeks. She has proximal weakness, complained of numbness in her left extremity. She has had difficulty raising from a lower position. She lives at home with a friend and is independent with ADLs and moderately independent with mobility at home. She is currently setup for max assist for ADLs and moderate assist to total assist for mobility. She plans to return home, hopefully get to her prior level of functioning or better if possible. COMORBIDITIES: Include a chronic end-stage renal disease, acute arm pain, scleroderma, cellulitis, infected graft, chronic hypertension, dependence on renal dialysis, fever and chills, infection, Gram-negative septicemia, thrombocytopenia, bacteremia, hallucinations that need to be monitored. PAST MEDICAL HISTORY: Significant for numbness in her left foot, scleroderma, sinus problems, thyroid problems, hypothyroidism, atrial fibrillation, anemia, arthritis, chronic back pain and hypertension. PAST SURGICAL HISTORY: Includes right hip replacement, cataracts, hysterectomy, back surgery, tubal ligation, bladder lift, gallbladder surgery. She has had a right hip replacement. She has had AV fistula, G-tube placement and removal, and arm skin graft. ALLERGIES: MORPHINE, SACCHARIN, ASPARTAME, CIPRO, ADHESIVE TAPE, XYLITOL, SUCRALOSE, MALTODEXTRIN. CURRENT MEDICATIONS: Include Levaquin 500 mg q.48 hours. She is on heparin 2000 units prior to dialysis. She is on Maxipime 1 g q.24 hours for 7 doses, Protonix 40 mg daily, Synthroid 50 mcg daily, folic acid daily, temazepam 15-30 mg q.h.s. p.r.n., Renagel 800 mg q.a.c. and q.h.s., phenol spray daily. She is on Zofran p.r.n. nausea and vomiting, Zyprexa 2.5 mg q.h.s., nystatin suspension as needed, metoprolol 25 mg b.i.d., ibuprofen 400 mg q.6 hours p.r.n., Uloric 80 mg daily. She is on acetaminophen 650 mg q.4 hours p.r.n., and MiraLax 17 g in 8 ounces of water daily. HISTORY AND PHYSICAL [id number] NOLAN STOVALL HABITS: No tobacco use. FAMILY HISTORY: Noncontributory. SOCIAL HISTORY: The patient hopes to return back home and get back to her prior level of functioning. REVIEW OF SYSTEMS: GENERAL: Does complain of weakness and fatigue. HEENT: Denies cold, cough or congestion. CARDIOVASCULAR: Denies chest pain. LUNGS: Denies shortness of breath. PHYSICAL EXAMINATION: VITAL SIGNS: Stable, afebrile. GENERAL: An elderly female in no acute distress, alert upon exam. HEENT: Normocephalic and atraumatic. Mucosa moist. NECK: Supple. No lymphadenopathy. LUNGS: Clear at this time. HEART: Irregular rate and rhythm. ABDOMEN: Benign. EXTREMITIES: Consistent with redness to her extremity. NEUROLOGIC: Seems intact. LABORATORY DATA: White count is 11.3, H&H 8.9 and 27.3 and platelet count is 209. Sodium is 136, potassium 3.7, BUN and creatinine of 14 and 2.9, and blood sugar is noted to be 87. ASSESSMENT: This is a 66-year-old female patient admitted to rehab with a working diagnosis of uremic myopathy. The patient has potential to make improvement. We instituted the following multidisciplinary therapies including, but not limited to physical, occupational, respiratory, speech, nutritional services, prosthetics and orthotics. Given her complex condition and risk for more complications, rehabilitation services cannot be provided at a low level of care such as a intermediate facility. PLAN: 1. Admit to [facility] rehab for intensive inpatient therapy to include the following disciplines: A. Physical therapy to improve gait, all transfer skills and bed mobility to a modified independent level. B. Occupational therapy to improve activities of daily living to a modified independent level. C. Case management to assist with discharge planning and placement options. D. Nutrition to assist with nutritional needs. E. Rehabilitation nursing to assist in monitoring the patient's underlying medical condition and to assist with any type of bowel or bladder management. 2. The patient's current medication and medical care will be continued. 3. The patient will be placed on standard fall precautions. 4. The patient's estimated length of stay is approximately 7-10 days. 5. We will discuss this patient during care team staff meeting this week. TRANSINT:[id number] Voice Confirmation ID: [id number] DOCUMENT ID: [id number] HISTORY AND PHYSICAL [id number] NOLAN STOVALL notes whether there has been none or any medical/functional change since admission: - No change since prescreen. YESY attests patient continues to be appropriate for IRF: - Continues to be appropriate. CRISTIAN HE MD at 1127 CC: [id number] DICTATION DATE: 10/08/16 0912 DIRECTOR OF FIELD COORDINATION: 10/08/16 1101 ADM IN [place] [id number] [place] [address]
[2016-10-20] MEDS ORDERED: LEVAQUIN500 MG PO (11:29)
--- NOTE | 2016-10-20 13:04 | NUR ---
PT ESCORTED OUT VIA WHEELCHAIR. PT DISCHARGING HOME WITH FAMILY. PT SEATBELT IN PLACE. DISCHARGE INSTRUCTIONS REVIEWED PRIOR TO DEPARTURE. PT MEDS TO BE CALLED IN TO [facility] ON [address].
--- NOTE | 2016-10-20 13:28 | NUR ---
PATIENT DISCHARGED HOME WITH FAMILY. [facility] WILL FOLLOW WITH PATIENT AT HOME. PATIENT WILL CONTINUE WITH HD DAYS AT [facility] ON T-T-SAT. ON 2ND SHIFT. [facility] WILL DELIVER A ROLLING WALKER TO PATIENT. DR. LION WILL FOLLOW WITH PATIENT ON HD DAYS. DR. WIGGINS 10/25/16 @ 11:20. PATIENT CHOICE FORM FOR HOME HEALTH AND IMFM FORM SIGNED , EXPLAINED AND FILED IN CHART. WOUND VAC DELIVERED TO PATIENT AND PLACED BY NURSE FOR HOME USE. ORDERS HAVE BEEN FAXED WITH CONFORMATION RECIEVED
== END 2016-10-20 13:06 | disposition home health service (06) | DRG 91 ==
LOC: D.REHAB 18:21
PROVIDERS: Internal Medicine Nephrology; Student in an Organized Health Care Education/Training Program; ADMIT Emergency Medicine
DX: G72.89 Other specified myopathies (principal); N18.6 End stage renal disease; A41.9 Sepsis, unspecified organism; I12.0 Hypertensive chronic kidney disease with stage 5 chronic kidney disease or end stage renal disease; L03.90 Cellulitis, unspecified; R44.3 Hallucinations, unspecified; Z99.2 Dependence on renal dialysis; M34.9 Systemic sclerosis, unspecified; R50.9 Fever, unspecified; D69.6 Thrombocytopenia, unspecified; T82.7XXD Infection and inflammatory reaction due to other cardiac and vascular devices, implants and grafts, subsequent encounter